=== PATIENT | female | born 1940 | race Caucasian/White ===

== ENCOUNTER 2016-05-03 23:06 | Inpatient (IN) | payer OTHER ==
[~2016-05-03] VITALS: Ht 160 cm; Wt 103.0 kg
[~2016-05-03 23:06] MED LIST: ACET-1175 PO; BISA10SU38 PR; CHOL1000 PO; CITA10TA4 PO; FURO40TA3 PO; HYDR-5688 PO; LAMO150T32 PO; LEVE1TAB57 PO; LOSA1TAB PO; MAGNSUS5 PO; OXYC-164 PO; POLY99.02 OPB; PRNJ PO; RANI150T2 PO; SENN-61 PO; TGR200 PO
[2016-05-03] MEDS ORDERED: ONDANSETRON INJ 2 MG/ML 2 ML VIAL IV STA (23:31)
[2016-05-03] MEDS ORDERED: MoRPHine SULFATE 4 MG/ML 1 ML CARP\\VIAL IV STA (23:31)
--- NOTE | 2016-05-03 23:36 | EMERGENCY ROOM VISIT NOTE ---
History Report prepared by Radha: Himanshu Bridges Under the Supervision of: Dr. Natan Allen M.D. First contact with patient: 23:14 Chief Complaint: LEG PAIN,LEG INJURY Stated Complaint: FALL/ RT LEG PAIN W/DEFORMITY History of Present Illness The patient is a 76 year old female who presents to the Emergency Room with complaints of constant pain in her right leg, secondary to a fall that occurred 1.5 hours prior to arrival. The patient rates her pain as a 6/10 in severity. According to the staff at [facility], the patient was being assisted to the restroom by an certified nursing assistant. The patient attempted to put weight on the right leg, and the certified nursing assistant heard a snap. There was a controlled fall following the snapping noise. There were no other traumatic injuries from the fall. The patient did no hit her head, and she denies pain in her hip. 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 Timing: constant Associated Symptoms: No headache Note: Patient denies pain in her right hip. Review of Systems See HPI for pertinent positives & negatives. A total of 10 systems reviewed and were otherwise negative. Past Medical & Surgical Medical Problems: (1) Abdom Aortic Aneurysm (2) Depressive Disorder Nec (3) Esophageal Reflux (4) Fibula fracture (5) Hypertension Nos (6) SIRS (systemic inflammatory response syndrome) (7) UTI (urinary tract infection) Family History Omitted secondary to age Social History Smoking Status: Unknown if Ever Smoked Alcohol Use: none Drug Use: none Housing Status: fdc Occupation Status: retired Current/Historical Medications Scheduled Artificial Tears (Artificial Tears), 1 DROPS OPB QID Bisacodyl (Dulcolax), 1 SUPP [place] PRN Carbamazepine (Carbamazepine), 300 MG PO BID Cholecalciferol (Vitamin D3), 1,000 UNITS PO DAILY Furosemide (Lasix), 60 MG PO DAILY Lamotrigine (Lamictal), 300 MG PO Q12 Levetiracetam (Keppra), 1,000 MG PO BID Losartan Potassium (Cozaar), 25 MG PO DAILY Magnesium Hydroxide (Milk Of Magnesia), 30 ML PO PRN Oxycodone Hcl (Oxycodone Hcl), 10 MG PO HS Prune Juice (Prune Juice ), OZ PO PRN UD Ranitidine HCl (Ranitidine HCl), 150 MG PO HS Senna (Senokot), 8.6 MG PO DAILY Scheduled PRN Acetaminophen (Tylenol), 650 MG PO Q6H PRN for Pain or Fever Hydrocodone/Acetaminophen 5MG/325MG ([place] 5MG/325MG), 1 TABLET PO Q4 PRN for MOD PAIN Hydrocodone/Acetaminophen 5MG/325MG ([place] 5MG/325MG), 2 TABLETS PO Q4H PRN for SEVERE PAIN Allergies Coded Allergies: No Known Allergies (Verified , 05/03/16) Physical Exam Vital Signs Date Time Temp Pulse Resp B/P Pulse Ox O2 Delivery O2 Flow Rate FiO2 05/04/16 02:42 54 05/04/16 02:31 55 18 185/71 99 Nasal Cannula 2.0 05/04/16 01:01 56 18 185/73 97 Room Air 05/03/16 23:50 96 Room Air 05/03/16 23:50 92 Room Air 05/03/16 23:20 36.4 57 22 186/77 98 Room Air Physical Exam GENERAL: Patient is a healthy-appearing well-nourished HEAD: Normocephalic atraumatic EYES: Ocular movements intact pupils equal and react to light OROPHARYNX mucous membranes are moist no exudates present no erythema or edema present NECK: Supple no nuchal rigidity CHEST: Good equal expansion LUNGS: Clear and equal to auscultation CARDIAC: Normal S1 and S2 ABDOMEN: Soft nontender no guarding BACK: No CVA tenderness EXTREMITIES: There is a chronic deformity to the right foot. Foot is neurovascularly intact. There is obvious swelling to the mid calf of the right leg. Normal range of motion. No pain upon palpation normal muscle strength in all groups no clubbing cyanosis. NEURO: Patient is following commands is answering questions appropriately. Alert and oriented x3 Cranial Nerves 2-12 grossly intact Medical Decision & Procedures ER Provider Diagnostic Interpretation: X-ray results as stated below per interpretation by me: 2 VIEW X-RAY TIBIA: X-rays shows a mid-shaft tibial fracture. No dislocation or subluxation. Laboratory Results 05/04/16 00:15 Red Blood Count 4.04, Mean Corpuscular Volume 96.3, Mean Corpuscular Hemoglobin 31.9, Mean Corpuscular Hemoglobin Concent 33.2, Mean Platelet Volume 9.2, Neutrophils (%) (Auto) 74.4, Lymphocytes (%) (Auto) 13.0, Monocytes (%) (Auto) 10.1, Eosinophils (%) (Auto) 2.0, Basophils (%) (Auto) 0.2, Neutrophils # (Auto ) 6.71, Lymphocytes # (Auto) 1.17, Monocytes # (Auto) 0.91, Eosinophils # (Auto ) 0.18, Basophils # (Auto) 0.02 05/04/16 00:15 Test 05/03/16 23:52 05/04/16 00:15 05/04/16 00:35 Bedside Glucose 104 mg/dl (70-90) White Blood Count 9.02 K/uL (4.8-10.8) Red Blood Count 4.04 M/uL (4.2-5.4) Hemoglobin 12.9 g/dL (12.0-16.0) Hematocrit 38.9 % (37-47) Mean Corpuscular Volume 96.3 fL (80-100) Mean Corpuscular Hemoglobin 31.9 pg (25-34) Mean Corpuscular Hemoglobin Concent 33.2 g/dl (32-36) Platelet Count 255 K/uL (130-400) Mean Platelet Volume 9.2 fL (7.4-10.4) Neutrophils (%) (Auto) 74.4 % Lymphocytes (%) (Auto) 13.0 % Monocytes (%) (Auto) 10.1 % Eosinophils (%) (Auto) 2.0 % Basophils (%) (Auto) 0.2 % Neutrophils # (Auto) 6.71 K/uL (1.4-6.5) Lymphocytes # (Auto) 1.17 K/uL (1.2-3.4) Monocytes # (Auto) 0.91 K/uL (0.11-0.59) Eosinophils # (Auto) 0.18 K/uL (0-0.5) Basophils # (Auto) 0.02 K/uL (0-0.2) RDW Standard Deviation 46.6 fL (36.4-46.3) RDW Coefficient of Variation 13.2 % (11.5-14.5) Immature Granulocyte % (Auto) 0.3 % Immature Granulocyte # (Auto) 0.03 K/uL (0.00-0.02) Prothrombin Time 10.7 SECONDS (9.0-12.0) Prothromb Time International Ratio 1.0 (0.9-1.1) Anion Gap 10.0 mmol/L (3-11) Estimated GFR () 46.8 Estimated GFR (Non- 40.4 BUN/Creatinine Ratio 21.0 (10-20) Calcium Level 8.9 mg/dl (8.5-10.1) Total Bilirubin 0.3 mg/dl (0.2-1) Direct Bilirubin < 0.1 mg/dl (0-0.2) Aspartate Amino Transf (AST/SGOT) 10 U/L (15-37) Alanine Aminotransferase (ALT/SGPT) 14 U/L (12-78) Alkaline Phosphatase 137 U/L (45-117) Total Protein 8.4 gm/dl (6.4-8.2) Albumin 3.8 gm/dl (3.4-5.0) Carbamazepine (Tegretol) Level 11.7 mcg/ml (4-12) Labs reviewed by ED physician. Medications Administered Medications (Trade) Dose Ordered Sig/Regla Route Start Time Stop Time Status Last Admin Dose Admin Morphine Sulfate (MoRPHine SULFATE INJ) 4 mg NOW STAT IV 05/03/16 23:31 05/03/16 23:32 DC 05/03/16 23:49 4 MG Ondansetron HCl (Zofran Inj) 4 mg NOW STAT IV 05/03/16 23:31 05/03/16 23:32 DC 05/03/16 23:47 4 MG Morphine Sulfate (MoRPHine SULFATE INJ) 4 mg NOW STAT IV 05/04/16 00:36 05/04/16 00:37 DC 05/04/16 01:00 4 MG Morphine Sulfate (MoRPHine SULFATE INJ) 4 mg Q15M PRN IV 05/04/16 00:45 05/04/16 04:48 DC 05/04/16 01:58 4 MG Hydromorphone HCl (Dilaudid Inj) 1 mg NOW STAT IV 05/04/16 02:15 05/04/16 02:16 DC 05/04/16 02:26 1 MG Metoclopramide HCl (Reglan Inj) 10 mg NOW STAT IV 05/04/16 02:15 05/04/16 02:16 DC 05/04/16 02:27 10 MG ED Course 2320: This patient was evaluated and HPI was obtained by the Medical Student prior to my evaluation. 2328: Past medical records reviewed. The patient was evaluated in room C11. A complete history and physical examination was performed. 2331: Ordered Zofran 4 mg IV, Morphine Sulfate 4 mg IV. 0034: I reevaluated the patient at this time. She is still feeling discomfort in her leg. 0036: Ordered Morphine Sulfate 4 mg IV. 0045: Ordered Morphine Sulfate 4 mg IV. 0105: I discussed the case with Dr. Jey DIAS, he will evaluate the patient for further treatment. Medical Decision The patient's history was concerning for traumatic injury Differential diagnosis: Etiologies such as fracture, dislocation, intra-abdominal, pneumothorax, intrathoracic , intracranial, neurologic, as well as other traumatic pathologies were entertained. This is a 76-year-old female who presents emergency Department with a spontaneous pain in her right mead. The patient has a large tibial fracture here. Based on the patient's comorbidities and her past medical history I felt that the patient should be admitted to the hospital. I did discuss her case with orthopedics. I will note that the patient are he has a right foot deformity and the patient noted that this foot appears normal for her. She is neurovascularly intact the foot. She was placed in ice. An IV was established , the patient is given multiple doses of morphine and then given 1 mg of Dilaudid. Repeat examination revealed improvement patient's symptoms. Patient was in agreement with the treatment plan. Consults Time Called: 51 Consulting Physician: Dr. Jey DIAS Hospitalist Returned Call: [phone] I discussed the case with Dr. Jey DIAS, he will evaluate the patient for further treatment. Impression Primary Impression: Tibial fracture Scribe Attestation The scribe's documentation has been prepared under my direction and personally reviewed by me in its entirety. I confirm that the note above accurately reflects all work, treatment, procedures, and medical decision making performed by me. Departure Information Dispostion Being Evaluated By Hospitalist Referrals [facility] (PCP) Patient Instructions My [facility] Problem Qualifiers Primary Impression: Tibial fracture Encounter type: initial encounter Tibia location: shaft Fracture type: closed Fracture morphology: comminuted Fracture alignment: nondisplaced Laterality: right Qualified Codes: S82.254A - Nondisplaced comminuted fracture of shaft of right tibia, initial encounter for closed fracture
[2016-05-04 00:32] LABS: BASO % 0.2 %; BASO ABS # 0.02 K/uL (0-0.2); COMPLETE YES; HEMATOCRIT 38.9 % (37-47); IG% 0.3 %; LYMPH ABS # 1.17 K/uL (1.2-3.4); MEAN CELL VOLUME 96.3 fL (80-100); MEAN CORPUSCULAR HEMOGLOBIN 31.9 pg (25-34); MEAN CORPUSCULAR HGB CONC 33.2 g/dl (32-36); MEAN PLATELET VOLUME 9.2 fL (7.4-10.4); MONO % 10.1 %; NEUT % 74.4 %; PLATELET COUNT 255 K/uL (130-400); RED BLOOD COUNT 4.04 M/uL (4.2-5.4); WHITE BLOOD COUNT 9.02 K/uL (4.8-10.8)
[2016-05-04] MEDS ORDERED: MoRPHine SULFATE 4 MG/ML 1 ML CARP\\VIAL IV STA (00:36)
[2016-05-04 00:40] LABS: PROTHROMBIN TIME (PATIENT) 10.7 SECONDS (9.0-12.0)
[2016-05-04] MEDS ORDERED: MoRPHine SULFATE 4 MG/ML 1 ML CARP\\VIAL IV PRN (00:45)
[2016-05-04] MEDS ORDERED: HYDR-5688 PO (00:46)
[2016-05-04 00:58] LABS: ALT/SGPT 14 U/L (12-78); AST/SGOT 10 U/L (15-37); BLOOD UREA NITROGEN 27 mg/dl (7-18); CALCIUM 8.9 mg/dl (8.5-10.1); CARBON DIOXIDE 28 mmol/L (21-32); CHLORIDE 94 mmol/L (98-107); GLUCOSE 120 mg/dl (70-99); POTASSIUM 4.2 mmol/L (3.5-5.1); SODIUM 132 mmol/L (136-145)
[2016-05-04 01:01] LABS: ALKALINE PHOSPHATASE 137 U/L (45-117)
[2016-05-04] MEDS ORDERED: HYDROmorphone INJ 1 MG/ML SYR IV STA (02:15)
[2016-05-04] MEDS ORDERED: METOCLOPRAMIDE HCL INJ 5 MG/ML 2 ML VIAL IV STA (02:15)
[2016-05-04] MEDS ORDERED: ACETAMINOPHEN 325 MG TAB PO PRN ×2 (03:45)
[2016-05-04] MEDS ORDERED: BISACODYL 10 MG SUPP PR PRN (03:45)
[2016-05-04] MEDS ORDERED: MAGNESIUM HYDROXIDE SUSP 30 ML UDC PO PRN (03:45)
[2016-05-04] MEDS ORDERED: ONDANSETRON INJ 2 MG/ML 2 ML VIAL IV PRN (03:45)
[2016-05-04] MEDS ORDERED: ALUMINUM/MAGNESIUM/SIMETH (MAALOX MAX) 30 ML UDC PO PRN (03:45)
[2016-05-04] MEDS ORDERED: POLYETHYLENE (MIRALAX) 17 GM PACK PO PRN (03:45)
[2016-05-04] MEDS ORDERED: MAGNESIUM HYDROXIDE SUSP 30 ML UDC PO SCH (03:45)
--- NOTE | 2016-05-04 04:53 | History and Physical ---
History & Physical Date & Time of Service: May 04, 2016 at 03:58 Chief Complaint: Fall/ Rt Leg Pain W/Deformity Primary Care Physician: Jumana Love History of Present Illness Source: patient, [place] [facility] 76 y/o morbidly obese female w/Hx, seizures, HTN, MILAGRO, severe osteoarthritis, questionable history of CHF- The pt is wheelchair bound and requires assistance transferring. She presents with LLE pain which occurred when she was helped up and put weight on her extremity. She denies having fallen. Imaging obtained in the ER shows a mid tibial dislocated, fragmented fracture. She denies SOB, CP, N/V, or dysuria. Past Medical/Surgical History Medical Problems: (1) Abdom Aortic Aneurysm Status: Chronic (2) Depressive Disorder Nec Status: Chronic (3) Esophageal Reflux Status: Chronic (4) Hypertension Nos Status: Chronic 5) Severe osteoarthritis - wheelchair bound 6) CHF in records - last available ECHO dates back to 2007 and does not reveal significant abnormalities - the pt denies a histroy of heart problems 7) Morbid obesity Family History Omitted secondary to age Social History Smoking Status: Unknown if Ever Smoked Drug Use: none Housing status: [facility] Occupational Status: retired Immunizations History of Influenza Vaccine: Unknown History of Tetanus Vaccine?: Unknown History of Pneumococcal: Unknown History of Hepatitis B Vaccine: Unknown Multi-Drug Resistant Organisms History of MDRO: Yes Type of MDRO: MRSA Allergies Coded Allergies: No Known Allergies (Verified , 05/03/16) Home Medications Scheduled Artificial Tears (Artificial Tears), 1 DROPS OPB QID Bisacodyl (Dulcolax), 1 SUPP [place] PRN Carbamazepine (Carbamazepine), 300 MG PO BID Cholecalciferol (Vitamin D3), 1,000 UNITS PO DAILY Furosemide (Lasix), 60 MG PO DAILY Lamotrigine (Lamictal), 300 MG PO Q12 Levetiracetam (Keppra), 1,000 MG PO BID Losartan Potassium (Cozaar), 25 MG PO DAILY Magnesium Hydroxide (Milk Of Magnesia), 30 ML PO PRN Oxycodone Hcl (Oxycodone Hcl), 10 MG PO HS Prune Juice (Prune Juice ), OZ PO PRN UD Ranitidine HCl (Ranitidine HCl), 150 MG PO HS Senna (Senokot), 8.6 MG PO DAILY Scheduled PRN Acetaminophen (Tylenol), 650 MG PO Q6H PRN for Pain or Fever Hydrocodone/Acetaminophen 5MG/325MG ([place] 5MG/325MG), 1 TABLET PO Q4 PRN for MOD PAIN Hydrocodone/Acetaminophen 5MG/325MG ([place] 5MG/325MG), 2 TABLETS PO Q4H PRN for SEVERE PAIN Review of Systems Constitutional: No chills, No fever, No sweats Eyes: No worsening of vision ENT: No hearing loss, No nasal symptoms, No unusual epistaxis Respiratory: No cough, No sputum, No wheezing Cardiovascular: No PND, No chest pain, No orthopnea Abdomen: No nausea, No pain, No vomiting Musculoskeletal: + joint pain, + muscle pain, + problem reported (Chronic severe arthritic deformities of all extremities - Pain along RLE - pulses present distaly.) Genitourinary - Female: No dysuria, No urinary frequency, No urinary urgency Neurologic: No memory loss, No paralysis, No weakness Psychiatric: No depression symptoms Endocrine: No fatigue Hematologic / Lymphatic: No abnormal bleeding/bruising Integumentary: No rash Allergic / Immunologic: No environmental allergies Physical Exam Vital Signs Date Time Temp Pulse Resp B/P Pulse Ox O2 Delivery O2 Flow Rate FiO2 05/04/16 02:42 54 05/04/16 02:31 55 18 185/71 99 Nasal Cannula 2.0 05/04/16 01:01 56 18 185/73 97 Room Air 05/03/16 23:50 96 Room Air 05/03/16 23:50 92 Room Air 05/03/16 23:20 36.4 57 22 186/77 98 Room Air General Appearance: WD/WN, no apparent distress Head: normocephalic, atraumatic Eyes: normal inspection ENT: pharynx normal Neck: supple, no JVD Respiratory/Chest: chest non-tender, lungs clear, normal breath sounds, no respiratory distress, no accessory muscle use Cardiovascular: regular rate, rhythm, no gallop, no JVD, + systolic murmur ( mild sysolic murmrur) Abdomen/GI: normal bowel sounds, non tender, soft Back: normal inspection, no CVA tenderness, no muscle spasm, normal range of motion Extremities/Musculoskelatal: normal inspection, no calf tenderness, normal capillary refill, no pedal edema, normal range of motion 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, no motor/sensory deficits, alert, normal mood/affect, normal reflexes, oriented x 3 Skin: normal color, warm/dry, no rash Diagnostics Laboratory Results Results Past 24 Hours Test 05/03/16 23:52 05/04/16 00:15 05/04/16 00:35 Range/Units Bedside Glucose 104 70-90 mg/dl White Blood Count 9.02 4.8-10.8 K/uL Red Blood Count 4.04 4.2-5.4 M/uL Hemoglobin 12.9 12.0-16.0 g/dL Hematocrit 38.9 37-47 % Mean Corpuscular Volume 96.3 80-100 fL Mean Corpuscular Hemoglobin 31.9 25-34 pg Mean Corpuscular Hemoglobin Concent 33.2 32-36 g/dl Platelet Count 255 130-400 K/uL Mean Platelet Volume 9.2 7.4-10.4 fL Neutrophils (%) (Auto) 74.4 % Lymphocytes (%) (Auto) 13.0 % Monocytes (%) (Auto) 10.1 % Eosinophils (%) (Auto) 2.0 % Basophils (%) (Auto) 0.2 % Neutrophils # (Auto) 6.71 1.4-6.5 K/uL Lymphocytes # (Auto) 1.17 1.2-3.4 K/uL Monocytes # (Auto) 0.91 0.11-0.59 K/uL Eosinophils # (Auto) 0.18 0-0.5 K/uL Basophils # (Auto) 0.02 0-0.2 K/uL RDW Standard Deviation 46.6 36.4-46.3 fL RDW Coefficient of Variation 13.2 11.5-14.5 % Immature Granulocyte % (Auto) 0.3 % Immature Granulocyte # (Auto) 0.03 0.00-0.02 K/uL Prothrombin Time 10.7 9.0-12.0 SECONDS Prothromb Time International Ratio 1.0 0.9-1.1 Sodium Level 132 136-145 mmol/L Potassium Level 4.2 3.5-5.1 mmol/L Chloride Level 94 98-107 mmol/L Carbon Dioxide Level 28 21-32 mmol/L Anion Gap 10.0 3-11 mmol/L Blood Urea Nitrogen 27 7-18 mg/dl Creatinine 1.30 0.60-1.20 mg/dl Estimated GFR () 46.8 Estimated GFR (Non- 40.4 BUN/Creatinine Ratio 21.0 10-20 Random Glucose 120 70-99 mg/dl Calcium Level 8.9 8.5-10.1 mg/dl Total Bilirubin 0.3 0.2-1 mg/dl Direct Bilirubin < 0.1 0-0.2 mg/dl Aspartate Amino Transf (AST/SGOT) 10 15-37 U/L Alanine Aminotransferase (ALT/SGPT) 14 12-78 U/L Alkaline Phosphatase 137 45-117 U/L Total Protein 8.4 6.4-8.2 gm/dl Albumin 3.8 3.4-5.0 gm/dl Carbamazepine (Tegretol) Level 11.7 4-12 mcg/ml Diagnostic Radiology Mid Tibial displaced fracture with multiple fragments EKG Sinus bee - borderline L axis - IVCD - no clear evidence of previous [facility] Impression Assessment and Plan 76 y/o morbidly obese female w/Hx, seizures, HTN, MILAGRO, severe osteoarthritis, questionable history of CHF- The pt is wheelchair bound and requires assistance transferring. She presents with LLE pain which occurred when she was helped up and put weight on her extremity. She denies having fallen. Imaging obtained in the ER shows a mid tibial dislocated, fragmented fracture. She denies SOB, CP, N/V, or dysuria. 1) Tibial fracture - bed rest - ortho eval She has a questionable history of CHF which she denies and we only have an echo dating to 2007. We cannot assess her exercise tolerance as she is wheelchair bound due to severe osteoarthritis. It is also very difficult to assess her volume status due to her habitus. We would defer then to contacting her primary MD for additional information prior to risk stratification if she is to proceed to surgery. Conservative measures are also an option as she is wheelchair bound regardless however she is having severe persistent pain. Decision will ultimately be left to the discretion of the orthopedic service. Pain has responded to Dilaudid. Pt is NPO pending ortho eval. Furosemide and her ARB have been held. HR will not tolerate periop B addis. Considering the way her frracture occured she need to be treated for osteoporosis eventually. 2) Seizures - cont anticonvulsants 3) HTN - monitor - ARB, Lasix held pending surgery eval 4) Ranitidine continued and ot placed on bowel reg Full code confirmed in chart - heparin held pending surgery eval - start if no immediate surgery as she is high risk for DVT Total time for this admit including chart review - med rec - review of labs, imaging EKG - discussion with pt and ER attending Level of Care Med/Surg Resuscitation Status FULL RESUSCITATION VTE Prophylaxis VTE Risk Assessment Done? Y/N: Yes Risk Level: Moderate
[2016-05-04 05:06] VITALS: BP 151/64; PULSE 63; TEMP 36.7; O2SAT 99; Ht 160 cm; Wt 103.0 kg
[2016-05-04] MEDS: HYDROmorphone INJ 1 MG/ML SYR IV PRN ×4 (06:42→17:46)
[2016-05-04 07:20] VITALS: BP 150/79; PULSE 53; TEMP 36.7; O2SAT 99
--- NOTE | 2016-05-04 07:20 | DIAGNOSTIC IMAGING REPORT ---
RIGHT TIBIA/FIBULA 2 VIEWS ROUTINE CLINICAL HISTORY: Right leg pain. COMPARISON: None. DISCUSSION: There are advanced degenerative changes within the knee and ankle.. There is an acute comminuted fracture of the proximal to mid tibia. There is an acute fracture of the proximal fibula. The tibial fracture demonstrates 10 mm of posterior displacement of the distal fragment. There is associated soft tissue swelling. IMPRESSION: 1. Acute comminuted fracture of the proximal and mid tibia. Acute fracture the proximal fibula. 2. Osteopenia 3. Advanced arthritic changes within the knee, foot and ankle Electronically signed by: Swapnil Salazar M.D. 05/04/2016 7:18 AM Dictated Date/Time: 05/04/2016 7:16 AM
--- NOTE | 2016-05-04 07:21 | DIAGNOSTIC IMAGING REPORT ---
RIGHT FOOT 2 VIEWS CLINICAL HISTORY: Right foot pain COMPARISON: None DISCUSSION: The bones are osteopenic. There are advanced degenerative changes within the ankle and hindfoot. This is likely on either a posttraumatic or neuropathic basis. No acute fractures are visualized. IMPRESSION: Advanced arthritic changes within the hindfoot and ankle. No acute fractures identified. Electronically signed by: Swapnil Salazar M.D. 05/04/2016 7:20 AM Dictated Date/Time: 05/04/2016 7:19 AM
[2016-05-04] MEDS ORDERED: LOSARTAN POTASSIUM 25 MG TAB PO SCH (09:00)
[2016-05-04] MEDS: LEVETIRACETAM 500 MG TAB PO SCH ×2 (09:23→21:44)
[2016-05-04] MEDS: CARBAMAZEPINE 200 MG TAB PO SCH ×2 (09:23→21:46)
[2016-05-04] MEDS: ARTIFICIAL TEARS OP SOLN OPB SCH ×8 (09:23→21:45)
[2016-05-04] MEDS: SENNA 8.6 MG TAB PO SCH (09:23)
--- NOTE | 2016-05-04 11:25 | ORTHOPEDIC CONSULTATION ---
DATE OF CONSULTATION: 05/04/2016 CHIEF COMPLAINT: Right leg pain. HISTORY OF PRESENT ILLNESS: The patient is a 76-year-old morbidly obese female with multiple underlying medical problems including severe wheelchair bound osteoarthritis, who presents to the ER with a right leg injury. She was apparently in the bathroom, mobilizing and somehow injured her right leg. The exact details are unclear. The patient is a pretty poor historian. She was brought to Emergency Room where x-rays reveal a tibia/fibula fracture. She was admitted and we are consulted for evaluation. Once again, the patient is wheelchair bound. Does not walk. She describes isolated right mead pain. No fevers. PAST MEDICAL HISTORY: 1. Hypertension. 2. Morbid obesity. 3. History of seizure disorder. 4. Congestive heart failure. 5. Abdominal aortic aneurysm. 6. Depression. 7. Gastroesophageal reflux disease. Remainder of the past medical history is per the admission H\T\P. OBJECTIVE: VITAL SIGNS: Temperature is 36.7. Vital signs stable. PHYSICAL EXAMINATION: GENERAL: Reveals she is relatively pleasant elderly female. She is lying in bed and looks reasonably comfortable. GENERAL MUSCULOSKELETAL EXAM: Reveals a morbidly obese patient. Examination of the upper extremities reveals weakness in her right arm. She really cannot extend her fingers or wrist and holds them in a flexed position that she says is related to arthritis. There are no signs of swelling or trauma in this area. Examination of the right lower extremity reveals the leg to be well aligned. She does have chronic stasis changes in her mid mead area. The skin is all intact. Her leg is well aligned. She has got a chronic deformity to her ankle with very marked prominent bony prominence medially. She has got a scar over the anterior aspect of her ankle. She can slightly flex and extend her toes. Very large thigh. No knee effusion. X-RAYS: X-rays of the right tib/fib as well as the right foot were reviewed. She has a marked chronic deformity to her foot and ankle without acute fracture. She got a comminuted midshaft tibia fracture with a proximal fibula fracture. The alignment looks good. It is slightly displaced in the lateral plane but alignment is good. There is some comminution with a medial butterfly fragment. ASSESSMENT: A 76-year-old female with multiple medical problems and morbid obesity with severe arthritis of her knee and ankle with a comminuted midshaft tibia fracture. Very osteopenic, not a very good surgical candidate. PLAN: We are going to place her in a long leg cast. She will need to be in this cast for at least a month, followed by short leg cast probably for at least 2 months. We will have to see how this heals. I think operative treatment would be fraught with difficulties with this patient, considering her severe knee arthritis and osteopenia. We will have to be careful and check her skin regularly due to her bony prominences distally. We will place this cast later today. She should be able to probably transfer back to [facility] likely tomorrow. Any questions can be directed to me at [phone].
--- NOTE | 2016-05-04 11:44 | DIAGNOSTIC IMAGING REPORT ---
RIGHT TIBIA/FIBULA 2 VIEWS ROUTINE CLINICAL HISTORY: Right tibial fracture COMPARISON: 05/03/2016 DISCUSSION: There is been interval application of a fiberglass cast. There are advanced arthritic changes present within the and ankle. There is a nondisplaced proximal fibular fracture. There is a comminuted fracture the mid tibial shaft. The distal fragment is laterally displaced x 13 mm. There is 7 degrees of vertex medial angulation at the fracture site. The distal fragment is posteriorly displaced x 6 mm. IMPRESSION: 1. Interval casting of a comminuted mid tibial fracture and proximal fibular fracture with alignment as described above. 2. Advanced arthritic changes involving the knee and ankle. The patient may be status post a previously attempted ankle arthrodesis. Electronically signed by: Swapnil Salazar M.D. 05/04/2016 11:42 AM Dictated Date/Time: 05/04/2016 11:36 AM
--- NOTE | 2016-05-04 13:16 | PROGRESS NOTE ---
DATE: 05/04/2016 HISTORY OF PRESENT ILLNESS: The patient was placed in well-padded long-leg cast. A well-padded short leg cast was applied with extra padding around the medial malleolus area. We tried to align this up clinically. This cast was then extended up above the knee holding the knee in about 30 degrees of flexion. The patient tolerated the procedure well. Post-reduction, films reveal slight valgus alignment but otherwise acceptable. We will likely wedge this cast probably about 2 weeks from now when it is starting to get a little bit sticky. The patient tolerated the procedure well with no complications. GEE
[2016-05-04 15:10] VITALS: BP 114/65; PULSE 58; TEMP 36.8; O2SAT 99
--- NOTE | 2016-05-04 18:42 | Progress Note ---
Subjective Date of Service: May 04, 2016. Subjective Pt evaluation today including: conversation w/ patient, physical exam, chart review, lab review Problem List Medical Problems: (1) Altered mental status Status: Acute (2) Fever Status: Acute (3) Seizure Status: Acute (4) Sepsis Status: Acute (5) Tibial fracture Status: Acute (6) UTI (urinary tract infection) Status: Acute Review of Systems Constitutional: No chills, No fatigue, No fever, No problem reported, No see HPI, No sweats, No weakness, No weight loss Eyes: No diplopia, No discharge, No eye pain, No problem reported, No redness, No see HPI, No worsening of vision ENT: No dental problems, No hearing loss, No nasal symptoms, No problem reported, No see HPI, No sore throat, No tinnitus, No trouble swallowing, No unusual epistaxis Respiratory: No cough, No dyspnea at rest, No dyspnea on exertion, No hemoptysis, No problem reported, No see HPI, No shortness of breath, No sputum, No wheezing Cardiac: No PND, No chest pain, No claudication, No edema, No orthopnea, No palpitations, No problem reported, No see HPI Abdomen: No GI bleeding, No constipation, No diarrhea, No nausea, No pain, No problem reported, No see HPI, No vomiting Musculoskeletal: + joint pain, + muscle pain Female : No abnormal vaginal bleeding, No dysuria, No hematuria, No incontinence, No problem reported, No see HPI, No urinary frequency, No vaginal discharge Neurologic: No balance problems, No memory loss, No numbness/tingling, No paralysis, No problem reported, No see HPI, No vertigo, No weakness Psychiatric: No anhedonism, No anxiety, No depression symptoms, No insomnia, No problem reported, No see HPI, No substance abuse Heme: No abnormal bleeding/bruising, No clotting problems, No night sweats, No problem reported, No see HPI, No swollen lymph nodes Endo: No excessive thirst, No excessive urination, No fatigue, No problem reported, No see HPI Skin: No bleeding, No color change, No itch, No new/changing skin lesions, No problem reported, No rash, No see HPI Medications Current Inpatient Medications Medications (Trade) Dose Ordered Sig/Regla Route Start Time Stop Time Status Last Admin Dose Admin Bisacodyl (Dulcolax Supp) 10 mg DAILY PRN [place] 05/04/16 03:45 06/03/16 03:44 Carbamazepine (Tegretol Tab) 300 mg BID PO 05/04/16 09:00 06/03/16 08:59 05/04/16 09:23 300 MG Lamotrigine (Lamictal Tab) 300 mg Q12 PO 05/04/16 09:00 06/03/16 08:59 05/04/16 09:23 300 MG Levetiracetam (Keppra Tab) 1,000 mg BID PO 05/04/16 09:00 06/03/16 08:59 05/04/16 09:23 1,000 MG Losartan Potassium (coZAAR TAB) 25 mg DAILY PO 05/04/16 09:00 06/03/16 08:59 05/04/16 09:23 25 MG Ranitidine HCl (zANTac TAB) 150 mg HS PO 05/04/16 21:00 06/03/16 20:59 Senna (Senokot Tab) 8.6 mg DAILY PO 05/04/16 09:00 06/03/16 08:59 05/04/16 09:23 8.6 MG Artificial Tears (Artificial Tears) 2 drops QID OPB 05/04/16 09:00 06/03/16 08:59 05/04/16 17:21 2 DROPS Acetaminophen (Tylenol Tab) 650 mg Q4H PRN PO 05/04/16 03:45 06/03/16 03:44 Al Hydrox/Mg Hydrox/Simethicone (Maalox Max Susp) 15 ml Q4H PRN PO 05/04/16 03:45 06/03/16 03:44 Magnesium Hydroxide (Milk Of Magnesia Susp) 30 ml Q6H PRN PO 05/04/16 03:45 06/03/16 03:44 Polyethylene (Miralax Powder Packet) 17 gm DAILY PRN PO 05/04/16 03:45 06/03/16 03:44 Ondansetron HCl (Zofran Inj) 4 mg Q6H PRN IV 05/04/16 03:45 06/03/16 03:44 Hydromorphone HCl (Dilaudid Inj) 1 mg Q3H PRN IV 05/04/16 03:45 05/18/16 03:44 05/04/16 17:46 1 MG Objective Vital Signs Date Time Temp Pulse Resp B/P Pulse Ox O2 Delivery O2 Flow Rate FiO2 05/04/16 15:10 36.8 58 20 114/65 99 Nasal Cannula 2.0 05/04/16 09:30 Nasal Cannula 2.0 05/04/16 07:20 36.7 53 20 150/79 99 Nasal Cannula 2.0 05/04/16 05:06 36.7 63 20 151/64 99 Nasal Cannula 2.0 05/04/16 04:35 36.8 60 20 166/65 99 Nasal Cannula 2.0 05/04/16 02:42 54 05/04/16 02:31 55 18 185/71 99 Nasal Cannula 2.0 05/04/16 01:01 56 18 185/73 97 Room Air 05/03/16 23:50 96 Room Air 05/03/16 23:50 92 Room Air 05/03/16 23:20 36.4 57 22 186/77 98 Room Air Physical Exam General Appearance: no apparent distress Eyes: normal inspection, PERRL, EOMI ENT: normal ENT inspection, hearing grossly normal Neck: supple Respiratory/Chest: chest non-tender, lungs clear, normal breath sounds, no respiratory distress, no accessory muscle use Cardiovascular: regular rate, rhythm, no edema, no gallop, no JVD, no murmur Abdomen: normal bowel sounds, non tender, soft, no organomegaly Extremities: normal range of motion Neurologic/Psychiatric: hospital chief executive officer II-XII nml as tested, no motor/sensory deficits, alert, normal mood/affect, oriented x 3 Skin: normal color, warm/dry, no rash Laboratory Results Last 24 Hours Test 05/03/16 23:52 05/04/16 00:15 05/04/16 00:35 Bedside Glucose 104 mg/dl White Blood Count 9.02 K/uL Red Blood Count 4.04 M/uL Hemoglobin 12.9 g/dL Hematocrit 38.9 % Mean Corpuscular Volume 96.3 fL Mean Corpuscular Hemoglobin 31.9 pg Mean Corpuscular Hemoglobin Concent 33.2 g/dl Platelet Count 255 K/uL Mean Platelet Volume 9.2 fL Neutrophils (%) (Auto) 74.4 % Lymphocytes (%) (Auto) 13.0 % Monocytes (%) (Auto) 10.1 % Eosinophils (%) (Auto) 2.0 % Basophils (%) (Auto) 0.2 % Neutrophils # (Auto) 6.71 K/uL Lymphocytes # (Auto) 1.17 K/uL Monocytes # (Auto) 0.91 K/uL Eosinophils # (Auto) 0.18 K/uL Basophils # (Auto) 0.02 K/uL RDW Standard Deviation 46.6 fL RDW Coefficient of Variation 13.2 % Immature Granulocyte % (Auto) 0.3 % Immature Granulocyte # (Auto) 0.03 K/uL Prothrombin Time 10.7 SECONDS Prothromb Time International Ratio 1.0 Sodium Level 132 mmol/L Potassium Level 4.2 mmol/L Chloride Level 94 mmol/L Carbon Dioxide Level 28 mmol/L Anion Gap 10.0 mmol/L Blood Urea Nitrogen 27 mg/dl Creatinine 1.30 mg/dl Estimated GFR () 46.8 Estimated GFR (Non- 40.4 BUN/Creatinine Ratio 21.0 Random Glucose 120 mg/dl Calcium Level 8.9 mg/dl Total Bilirubin 0.3 mg/dl Direct Bilirubin < 0.1 mg/dl Aspartate Amino Transf (AST/SGOT) 10 U/L Alanine Aminotransferase (ALT/SGPT) 14 U/L Alkaline Phosphatase 137 U/L Total Protein 8.4 gm/dl Albumin 3.8 gm/dl Carbamazepine (Tegretol) Level 11.7 mcg/ml Assessment and Plan 76 y/o morbidly obese female w/Hx, seizures, HTN, MILAGRO, severe osteoarthritis, questionable history of CHF- The pt is wheelchair bound and requires assistance transferring. she had a mechanical fall in the bathroom resulted in mid tibial dislocated, fragmented fracture. Tibia fracture , ortho consult appreciated S/P leg cast Post-reduction, films reveal slight valgus alignment but otherwise acceptable. likely will need wedge 2 weeks from now continue Dilaudid for pain management but add also oral percocet, consider long acting oxycodone. JO ANN/Dehydration Hold Furosemide and her ARB Gentle IVF hydration Seizures - cont anticonvulsants HTN - monitor - ARB, Lasix held Ranitidine continued Lovenox for DVT prophylaxis
[2016-05-04] MEDS: SODIUM CHLORIDE 0.9% 1000ML 1,000 ML IV SCH (19:15)
[2016-05-04] MEDS: RANITIDINE HCL 150 MG TAB PO SCH (21:47)
[2016-05-04 23:39] VITALS: BP 87/69; PULSE 68; TEMP 36.8; O2SAT 98
[2016-05-05] VITALS (8 sets, daily range): BP systolic 109–142; BP diastolic 57–70; PULSE 52–67; TEMP 36.8; O2SAT 92–98
[2016-05-05] MEDS: HYDROmorphone INJ 1 MG/ML SYR IV PRN ×2 (00:25→22:31)
[2016-05-05 06:58] LABS: BASO % 0.8 %; BASO ABS # 0.04 K/uL (0-0.2); COMPLETE YES; EOS % 3.2 %; HEMATOCRIT 31.2 % (37-47); IG% 0.2 %; LYMPH % 32.5 %; LYMPH ABS # 1.72 K/uL (1.2-3.4); MEAN CELL VOLUME 97.5 fL (80-100); MEAN CORPUSCULAR HEMOGLOBIN 32.5 pg (25-34); MEAN CORPUSCULAR HGB CONC 33.3 g/dl (32-36); MEAN PLATELET VOLUME 9.1 fL (7.4-10.4); MONO % 14.2 %; NEUT % 49.1 %; PLATELET COUNT 218 K/uL (130-400); WHITE BLOOD COUNT 5.29 K/uL (4.8-10.8)
[2016-05-05 07:30] LABS: ALB/GLOB RATIO 0.7 (0.9-2); BUN/CREATININE RATIO 24.2 (10-20); CALCIUM 8.2 mg/dl (8.5-10.1); POTASSIUM 4.3 mmol/L (3.5-5.1)
[2016-05-05 07:31] LABS: MAGNESIUM 2.4 mg/dl (1.8-2.4); PHOSPHORUS 2.7 mg/dl (2.5-4.9)
[2016-05-05] MEDS ORDERED: ENOXAPARIN 30 MG/0.3 ML SYR SQ SCH (09:00)
--- NOTE | 2016-05-05 09:29 | DIAGNOSTIC IMAGING REPORT ---
CHEST ONE VIEW PORTABLE CLINICAL HISTORY: Preoperative evaluation. COMPARISON STUDY: Chest radiograph September 08, 2015. FINDINGS: Severe degenerative changes of the right shoulder are noted. There is no pneumothorax or pleural effusion. This study is compromised by suboptimal penetration. There is no evidence of pulmonary edema. Moderate cardiomegaly is unchanged. Upper mediastinal widening is unchanged. IMPRESSION: 1. No acute cardiopulmonary findings. 2. Stable mild to moderate cardiomegaly. Electronically signed by: Romeo Atkinson M.D. 05/05/2016 9:27 AM Dictated Date/Time: 05/05/2016 9:26 AM
[2016-05-05] MEDS: ARTIFICIAL TEARS OP SOLN OPB SCH ×8 (09:46→20:42)
[2016-05-05] MEDS: SENNA 8.6 MG TAB PO SCH (09:47)
[2016-05-05] MEDS: LEVETIRACETAM 500 MG TAB PO SCH ×2 (09:48→21:03)
[2016-05-05] MEDS: CARBAMAZEPINE 200 MG TAB PO SCH ×2 (09:49→21:04)
--- NOTE | 2016-05-05 10:06 | Clinical Documentation Query ---
CLINICAL DOCUMENTATION QUERY Dr. CHATMAN, In your clinical opinion is this patient being managed for: (x ) Osteoporotic fracture of R proximal to mid tibia and R proximal fibula sustained when pt was bearing wt on R leg with transfer ( ) Other explanation of clinical findings (Please Explain) ( ) Unable to determine (Please Define) ( ) Need to Discuss ( ) Not Agree The medical record reflects the following clinical findings, treatment, and risk factors. Clinical Indicators: ER note indicates pt was transferring and put weight on her R leg, then caregiver heard a snap. Controlled fall occurred following the snapping noise. Tib/FIb xray showed osteopenia. Treatment:followup treatment for osteoporosis (per H/P), ortho consult, R long leg cast, outpatient Vitamin D treatment Risk Factors: perimenopausal female, morbid obesity, severe osteoarthritis Please clarify and document your clinical opinion in the progress notes and discharge summary. Terms such as "probable", "suspected", "likely", "questionable", "possible", or "still to be ruled out" are acceptable. IF IN AGREEMENT, YOU MUST DOCUMENT ABOVE DIAGNOSTIC STATEMENT IN DAILY PROGRESS NOTES AND DISCHARGE SUMMARY. This document is not part of the patient's record. Thank You, Ana Hooper, RN [phone]
--- NOTE | 2016-05-05 10:12 | Hospitalist Progress Note ---
Hospitalist Progress Note Date of Service May 05, 2016. (Genoveva Sears ., DEL-C) Subjective Pt evaluation today including: conversation w/ patient, physical exam, chart review, lab review, review of studies Pain: 5/10 aching RLE pain PO Intake: NPO Voiding: fuentes catheter in place Patient reports feeling well. She complains of a 5/10 aching pain in her right lower leg that radiates down to her right foot. Her RLE is currently in a long cast. She denies any other complaints. She has been kept NPO for surgery today and a Fuentes catheter is in place. The patient denies any history of heart attack or stroke, although her outpatient records suggest a remote history of CVA with residual right hemiplegia. The patient denies fevers, chills, sweats, chest pain, palpitations, claudication, cough, wheezing, shortness of breath, nausea, vomiting, abdominal pain, dysuria, hematuria, urinary retention, paralysis, weakness, numbness and tingling. Additional Comments: See HPI for pertinent positives and negatives. All other systems reviewed and negative. (Genoveva Sears ., PA-C) Objective Vital Signs Date Time Temp Pulse Resp B/P Pulse Ox O2 Delivery O2 Flow Rate FiO2 05/05/16 08:23 36.8 62 18 129/67 92 Room Air 05/05/16 00:24 109/67 05/05/16 00:15 Room Air 05/04/16 23:39 36.8 68 18 87/69 98 Room Air 05/04/16 17:30 Nasal Cannula 1.0 05/04/16 15:10 36.8 58 20 114/65 99 Nasal Cannula 2.0 (Genoveva Sears ., PA-C) Physical Exam General Appearance: WD/WN, no apparent distress, + obese (morbidly obese) Eyes: normal inspection, PERRL, EOMI ENT: normal ENT inspection, hearing grossly normal, pharynx normal, + pertinent finding (dry oral mucosa, pt is NPO ) Neck: supple, no JVD, trachea midline Respiratory/Chest: lungs clear, normal breath sounds, no respiratory distress Cardiovascular: regular rate, rhythm, no gallop, + systolic murmur Abdomen: normal bowel sounds, non tender, soft Extremities: no pedal edema, normal capillary refill, + pertinent finding (RLE in long cast, sensation intact) Neurologic/Psychiatric: alert, normal mood/affect, oriented x 3, + pertinent finding (distal pulses intact, sensation intact) Skin: normal color, warm/dry, no rash (Genoveva Sears .SARA) Laboratory Results Last 24 Hours Test 05/05/16 06:30 White Blood Count 5.29 K/uL Red Blood Count 3.20 M/uL Hemoglobin 10.4 g/dL Hematocrit 31.2 % Mean Corpuscular Volume 97.5 fL Mean Corpuscular Hemoglobin 32.5 pg Mean Corpuscular Hemoglobin Concent 33.3 g/dl Platelet Count 218 K/uL Mean Platelet Volume 9.1 fL Neutrophils (%) (Auto) 49.1 % Lymphocytes (%) (Auto) 32.5 % Monocytes (%) (Auto) 14.2 % Eosinophils (%) (Auto) 3.2 % Basophils (%) (Auto) 0.8 % Neutrophils # (Auto) 2.60 K/uL Lymphocytes # (Auto) 1.72 K/uL Monocytes # (Auto) 0.75 K/uL Eosinophils # (Auto) 0.17 K/uL Basophils # (Auto) 0.04 K/uL RDW Standard Deviation 48.2 fL RDW Coefficient of Variation 13.4 % Immature Granulocyte % (Auto) 0.2 % Immature Granulocyte # (Auto) 0.01 K/uL Sodium Level 134 mmol/L Potassium Level 4.3 mmol/L Chloride Level 98 mmol/L Carbon Dioxide Level 29 mmol/L Anion Gap 7.0 mmol/L Blood Urea Nitrogen 24 mg/dl Creatinine 1.00 mg/dl Est Creatinine Clear Calc Drug Dose 56.4 ml/min Estimated GFR () 64.3 Estimated GFR (Non- 55.5 BUN/Creatinine Ratio 24.2 Random Glucose 96 mg/dl Calcium Level 8.2 mg/dl Phosphorus Level 2.7 mg/dl Magnesium Level 2.4 mg/dl Total Bilirubin 0.4 mg/dl Aspartate Amino Transf (AST/SGOT) 11 U/L Alanine Aminotransferase (ALT/SGPT) 12 U/L Alkaline Phosphatase 100 U/L Total Protein 6.8 gm/dl Albumin 2.9 gm/dl Globulin 3.9 gm/dl Albumin/Globulin Ratio 0.7 (Genoveva Sears PA-C) Diagnostic Results Reviewed the following studies and agree with interpretation as follows: Patient Name: CHANDRIKA LUO Unit Number: [id number] Dictated: 05/05/16925 Transcribed: 05/05/16925 JA Printed Date/Time: [~ rep prt dt]/[~ rep prt tm] [~ rep ct labl] - [~ rep ct ivnm] [facility] [place] [address] Dictated: 05/05/16925 Transcribed: 05/05/16925 JA Printed Date/Time: [~ rep prt dt]/[~ rep prt tm] [~ rep ct labl] - [~ rep ct ivnm] Patient: CHANDRIKA LUO Address1: [address] [place] [address] Rec: [id number] Address2: [place] Acct ID: [id number] [facility] Zip: [place] [address] Date: 1940 Sex: F Room/Bed: [facility] Ref Phy: [place]: C.MSN Att Phy: Cathleen Norris DO Report #: [id number] Isabella Phy: [place] Test: [id number] Admit Phy: Luisito Khanna MD [employer] Operator: CURLY Interpreting Phy: Romeo Atkinson MD Diagnosis: TIBIAL FRACTURE Ordering Phy: Genoveva Sears PA-C Service Date: 05/05/16 Admit Date: 05/03/1700/22/17 MNE: [id number] CONF: DICTATED BY: Romeo Atkinson MD]] CC: [facility] Genoveva Sears ., Cathleen Eugene DO Endcc: [~ rep ct add3]] CHEST ONE VIEW PORTABLE CLINICAL HISTORY: Preoperative evaluation. COMPARISON STUDY: Chest radiograph September 08, 2015. FINDINGS: Severe degenerative changes of the right shoulder are noted. There is no pneumothorax or pleural effusion. This study is compromised by suboptimal penetration. There is no evidence of pulmonary edema. Moderate cardiomegaly is unchanged. Upper mediastinal widening is unchanged. IMPRESSION: 1. No acute cardiopulmonary findings. 2. Stable mild to moderate cardiomegaly. Electronically signed by: Romeo Atkinson M.D. 05/05/2016 9:27 AM Dictated Date/Time: 05/05/2016 9:26 AM The status of this report is Signed. Draft = Not yet reviewed or approved by Radiologist. Signed = Reviewed and approved by Radiologist. <AttendingPhy>Cathleen Norris DO</AttendingPhy> <FamilyPhy>[place]</ FamilyPhy> <PrimaryPhy>[place]</PrimaryPhy> <UnitNumber>[id number]</ UnitNumber> <VisitNumber>[id number]</VisitNumber> <PatientName>CHANDRIKA LUO</PatientName> <DateOfBirth>1940</DateOfBirth> <Location>C.MSN</ Location> <ServiceDate>05/03/16</ServiceDate> <MNE>ESINDI</MNE> <OrderingPhy> Genoveva Sears PA-C</OrderingPhy> <OrderingPhyMNE>f rep ord dr ford</ OrderingPhyMNE> <DictatingPhyMNE>f rep dict dr ford</DictatingPhyMNE> <CCListMNE> f rep ct mne</CCListMNE> <AdmittingPhyMNE>f pt admit dr ford</AdmittingPhyMNE> < AttendingPhyMNE>f pt attend dr ford</AttendingPhyMNE> <ConsultingPhyMNE>f pt consult dr ford</ConsultingPhyMNE> <FamilyPhyMNE>f pt fam dr ford</FamilyPhyMNE> <OtherPhyMNE>f pt other dr ford</OtherPhyMNE> < PrimaryPhyMNE>f pt prim care dr ford</PrimaryPhyMNE> <ReferringPhyMNE>f pt referring dr ford</ReferringPhyMNE> Reviewed EKG and agree with interpretation as follows: 57 bpm, sinus bradycardia w/PACs in bigeminy, inverted T waves in leads V1 and V2 (Genoveva Sears .SARA) Assessment and Plan 76 y/o female with a history of morbid obesity, seizures, HTN, MILAGRO, severe osteoarthritis, and questionable history of CHF who presented following an unclear trauma in the bathroom resulting in a mid tibial dislocated, fragmented fracture. Pt denies falling and states that she put all of her weight on her RLE just prior to the fracture. The pt is wheelchair bound and requires assistance transferring. Tibial fracture -Admit to med/surg -Pt NPO after midnight except meds -Ortho consulted, appreciate recs: S/p long leg cast and reduction 05/04, repeat x-ray show slight valgus alignment but is acceptable. 05/05 ortho now recommends surgery, pt to go to OR today pending pre-op evaluation -EKG 05/04: 57 bpm, sinus bradycardia with PACs in bigeminy pattern, inverted T waves in leads V1 and V2. Pt has had anterior T waves in the past. She is asymptomatic. -CXR shows no acute disease, stable cardiomegaly -Pt cleared for surgery today by medicine -Continue Dilaudid 1 mg IV q3h prn pain JO ANN/Dehydration--improved. Baseline creatinine WNL, around 0.8 -Creatinine elevated at 1.3 upon arrival -Improved with IVF, creatinine 1.0 on 05/05 -Hold Furosemide and losartan -Gentle IVF hydration Seizures--stable -Continue Tegretol 300 mg PO BID, Lamictal 300 mg PO q12h, and Keppra 1000 mg PO BID HTN--stable, last recorded BP 129/67 -Continue to hold losartan until renal function is checked post operatively and remains stable DVT prophylaxis -Hold chemical prophylaxis for now due to surgery -SATISH sandoval and SCDs in LLE only Code Status -Level I, FULL RESUSCITATION STATUS (Genoveva Sears ., PA-C) Reviewed: Pt Seen/Exam by Me (Cathleen Norris DO) History Pt does not like being in the hospital. No new concerns. No chest pain, SOB. Agree with HPI/ROS as noted above (Cathleen Norris, DO) General Appearance: no apparent distress, obese Respiratory: normal breath sounds, no respiratory distress Cardiovascular: normal peripheral pulses, regular rate, rhythm Gastrointestinal: non tender, soft Extremities: non-tender, no pedal edema Neurologic/Psychiatric: alert, other (irritable) Skin Characteristics: normal color, warm/dry (Cathleen Norris DO) Assessment/Plan Agree with plan as outlined above Pt with likely osteoporotic fracture that occurred after attempt at weight bearing. Pt is to be nonweightbearing at baseline Initially tried to manage with cast, now planning for OR later today Pt appears acceptable risk for OR (Cathleen Norris, DO)
[2016-05-05] MEDS ORDERED: FENTANYL CITRATE INJ 50 MCG/1 ML 2 ML VIAL ONE ×3 (12:31→16:19)
[2016-05-05] MEDS ORDERED: MIDAZOLAM HCL 1 MG/ML 2ML VIAL ONE (12:31)
[2016-05-05] MEDS ORDERED: CEFAZOLIN IV 3,000 MG/65 ML D5W IV ONE (13:04)
[2016-05-05] MEDS ORDERED: NURSING VERBAL MED ORDER STA (13:04)
--- NOTE | 2016-05-05 13:30 | History & Physical Bridge Note ---
H&P Re-Evaluation Bridge Note: I have examined the patient, reviewed the History & Physical and in the interval since the performance of the History & Physical I have noted the following changes of clinical significance: No changes noted
[2016-05-05] MEDS ORDERED: LIDOCAINE HCL 2% 2 ML VIAL (20MG/ML) ONE (14:06)
[2016-05-05] MEDS ORDERED: ROCURONIUM BROMIDE 10 MG/ML 5 ML VIAL ONE (14:06)
[2016-05-05] MEDS ORDERED: PROPOFOL IV EMULSION 10 MG/ML 20 ML VIAL IV ONE (14:06)
[2016-05-05] MEDS ORDERED: DEXAMETHASONE SOD INJ 4 MG/ML VIAL ONE (14:08)
[2016-05-05] MEDS ORDERED: ONDANSETRON INJ 2 MG/ML 2 ML VIAL ONE (14:08)
[2016-05-05] MEDS ORDERED: ONDANSETRON INJ 2 MG/ML 2 ML VIAL IV PRN ×2 (14:30→16:15)
[2016-05-05] MEDS ORDERED: LABETALOL HCL IV 5 MG/ML 20ML IV PRN (14:30)
[2016-05-05] MEDS ORDERED: ATROPINE SULFATE 0.1 MG/ML 5ML SYR IV PRN (14:30)
[2016-05-05] MEDS ORDERED: LABETALOL HCL IV 5 MG/ML 20ML ONE (14:57)
[2016-05-05] MEDS ORDERED: GLYCOPYRROLATE INJ 0.2 MG/ML VIAL ONE (15:36)
[2016-05-05] MEDS ORDERED: NEOSTIGMINE METHYLSULFATE 5 MG/5 ML SYR ONE (15:36)
--- NOTE | 2016-05-05 15:50 | DIAGNOSTIC IMAGING REPORT ---
INTRAOPERATIVE FLUOROSCOPIC IMAGES OF THE RIGHT TIBIA AND FIBULA CLINICAL HISTORY: Open reduction internal fixation. COMPARISON STUDY: Right tibia and fibula radiographs May 04, 2016. Fluoroscopy time: 1 minute and 4 seconds. FINDINGS: Fluoroscopic images demonstrate findings consistent with placement of a right tibial intramedullary siobhan with proximal and distal screws. Hardware fixates the mid shaft fracture of the right tibia. Fracture alignment has improved. There are no unexpected radiopaque foreign bodies. IMPRESSION: Findings consistent with internal fixation of the right tibial fracture with intramedullary siobhan. Electronically signed by: Romeo Atkinson M.D. 05/05/2016 3:48 PM Dictated Date/Time: 05/05/2016 3:46 PM
--- NOTE | 2016-05-05 15:53 | PROGRESS NOTE ---
DATE: 05/05/2016 SUBJECTIVE: A 76-year-old female admitted with a right midshaft comminuted tibia fracture. She has continued to have quite a bit of pain in the cast. She has trouble even moving about due to the pain. She is pretty miserable. No other complaints. OBJECTIVE: VITAL SIGNS: Temperature is 36.8. Vital signs stable. PHYSICAL EXAMINATION: GENERAL: This is a pleasant elderly female. She is lying in bed and just looks uncomfortable. EXTREMITIES: Examination of the right leg reveals the cast to be fitting well. Leg alignment looks pretty normal for a valgusly arthritic knee. She can flex or extend her toes appropriately. Grossly neurologically intact. LABS: Hemoglobin is 10.4, hematocrit 31.2. Electrolytes are stable. Creatinine improved at 1.0. ASSESSMENT: A 76-year-old female with a right comminuted midshaft tibia fracture with a more proximal fibula fracture with persistent pain. Certainly not unexpected to have pain, but I was hoping that this cast would immobilize her much, so that she would be doing better. PLAN: We talked this morning about treatment options. I do think considering her fracture pattern, that IM rodding is appropriate and would help stabilize her mead and help her pain lynn. I think it is going to be difficult to manage her in this cast, considering her very large soft tissue envelope around her thigh as well as her significant deformity around her ankle. After further discussion and consideration, I think IM nailing is the most appropriate treatment for this patient as long as she is medically able to proceed with the surgery. We are going to proceed with IM nailing. Dr. Dutton my partner is in the operating room today and he is going to do this. I did explain to the patient in depth the risks and benefits and informed consent was obtained. If she is not cleared today, I will do it tomorrow likely. This should help free her up, allow easier mobilization and decrease the risks of cast pressure sores on various parts of her anatomy. I did talk to the medical doctors and they are looking into making sure she is optimized. We will proceed as above.
--- NOTE | 2016-05-05 16:06 | [facility] Post Operative Brief Note ---
Immediate Operative Summary Operative Date May 05, 2016. Pre-Operative Diagnosis comminuted midshaft right tibia fracture Post-Operative Diagnosis comminuted midshaft right tibia fracture Procedure(s) Performed Right Tibia Intramedullary Nail Surgeon Dr. Dutton [employer] Surgeon(s) Faheem Hamlin PA-C Estimated Blood Loss 200 ml Findings tibia fracture Specimens none per surgeon Complication(s) None Disposition Recovery Room / PACU
[2016-05-05] MEDS ORDERED: BISACODYL 10 MG SUPP PR PRN (16:15)
[2016-05-05] MEDS ORDERED: MoRPHine SULFATE 4 MG/ML 1 ML CARP\\VIAL IV PRN (16:15)
[2016-05-05] MEDS ORDERED: MAGNESIUM HYDROXIDE SUSP 30 ML UDC PO PRN (16:15)
[2016-05-05] MEDS ORDERED: HydrALAZINE HCL 20 MG/ML VIAL ONE (16:33)
[2016-05-05] MEDS: HYDROmorphone INJ 2 MG/ML SYR/VIAL IV PRN ×3 (16:39→17:03)
--- NOTE | 2016-05-05 16:59 | OPERATIVE REPORT ---
DATE OF OPERATION: 05/05/2016 PREOPERATIVE DIAGNOSIS: Comminuted fracture of the right tibia. POSTOPERATIVE DIAGNOSIS: Same. PROCEDURE: Included IM rodding right tibia locked proximally and distally. SURGEON: Dr. Dutton. ORCHARD HAND: Faheem Hamlin PA-C. COMPLICATIONS: Zero. BLOOD LOSS: 250. DESCRIPTION OF PROCEDURE: The patient was taken to the operating room after informed consent was obtained for the patient. Her right lower extremity was prepped and draped sterile, scrubbed with Betadine, prepped with ChloraPrep as well. We actually prepped her up almost to her groin, the whole thing was draped sterile. We commenced with a skin incision over the medial aspect of the right tibial tuberosity. I kept the patellar tendon slightly lateral and gauged the anterior cortex with an awl, advanced the guidewire down to the distal tibia with a fairly anatomic reduction. We reamed up to 11.5, put in 10 mm nail. It was locked proximally and distally. The alignment was certainly satisfactory. We irrigated and closed in layers, wrapped her in sterile pressure dressing as well. The patient was then extubated to PACU stable. There were no apparent interoperative complications. There were interoperative concerns with a significant hematoma, significant blistering of the skin in the anterior aspect. The compartments were soft. There was no evidence of compartment syndrome. She also had a significant deformity of the knee and significant deformity of the ankle prior to start of surgery. Sponge and needle count correct at the close of the procedure. I attest to the content of the Intraoperative Record and any orders documented therein. Any exceptio ns are noted below.
[2016-05-05] MEDS ORDERED: HydrALAZINE HCL 20 MG/ML VIAL IV. STA ×2 (17:20→17:21)
--- NOTE | 2016-05-05 17:20 | Anesthesiology Progress Note ---
Anesthesia Post Op Note Date & Time May 05, 2016 at 17:09 Vital Signs Pain Intensity: 0 Vital Signs Past 12 Hours Date Time Temp Pulse Resp B/P Pulse Ox O2 Delivery O2 Flow Rate FiO2 05/05/16 16:08 36.8 57 16 248/234 100 Mask 10 05/05/16 08:23 36.8 62 18 129/67 92 Room Air 05/05/16 08:00 Room Air Notes Mental Status: alert / awake / arousable, participated in evaluation Pt Amnestic to Procedure: Yes Nausea / Vomiting: adequately controlled Pain: adequately controlled Airway Patency, RR, SpO2: stable & adequate BP & HR: stable & adequate, see Notes Hydration State: stable & adequate Anesthetic Complications: no major complications apparent The patient had a R tibial nailing by Dr. Dutton under general anesthesia. Intraoperatively, she was noted to be hypertensive 170s/60s so she was given two doses of labetalol. She was bradycardic and her other vitals were stable. The patient was extubated and brought to the PACU. She was awake and grimacing and her HR, SpO2, RR, and temperature were stable on admission. However, the PACU nurse was unable to get a blood pressure measurement due to either body habitus, blood pressure cuff positioning, or severe HTN. The first readings were 200s/200s then 100s/100s. Several different sized BP cuffs were tried in multiple locations. The patient was given hydralazine 10 mg IV and a blood pressure was still unable to be obtained despite a strong pulse. A second dose of hydralazine was given which brought the pressure down to 160/54. Her pressure has subsequently come down to 130s/60s and appears stable. The patient is awake and comfortable. I spoke to Dr. Norris from medicine and she agrees that the patient should be monitored overnight on telemetry due to her HTN. Dr. Dutton is aware and also agrees with this plan.
[2016-05-05] MEDS: SODIUM CHLORIDE 0.9% 1000ML 1,000 ML IV SCH (17:56)
[2016-05-05] MEDS: POTASSIUM CHLORIDE INJ 10 MEQ in SODIUM CHLORIDE 0.9% 1000ML 1,000 ML IV SCH (19:46)
[2016-05-05] MEDS: DOCUSATE SODIUM 100 MG CAP PO SCH (21:00)
[2016-05-05] MEDS: RANITIDINE HCL 150 MG TAB PO SCH (21:02)
[2016-05-05] MEDS: CEFAZOLIN IV 2,000 MG in DEXTROSE 5% 50ML 50 ML IV SCH (21:06)
[2016-05-05] MEDS: ACETAMINOPHEN IV 1,000 MG in EMPTY BAG 0 ML IV SCH (22:17)
[2016-05-06] VITALS (10 sets, daily range): BP systolic 125–148; BP diastolic 52–74; PULSE 59–71; TEMP 36.4–37.4; O2SAT 94–99
[2016-05-06] MEDS: HYDROmorphone INJ 1 MG/ML SYR IV PRN ×4 (02:55→21:12)
[2016-05-06] MEDS: CEFAZOLIN IV 2,000 MG in DEXTROSE 5% 50ML 50 ML IV SCH (06:00)
[2016-05-06] MEDS: POTASSIUM CHLORIDE INJ 10 MEQ in SODIUM CHLORIDE 0.9% 1000ML 1,000 ML IV SCH (06:00)
[2016-05-06] MEDS: ACETAMINOPHEN IV 1,000 MG in EMPTY BAG 0 ML IV SCH ×2 (06:01→13:51)
[2016-05-06 07:06] LABS: HEMATOCRIT 28.7 % (37-47); MEAN CORPUSCULAR HEMOGLOBIN 32.1 pg (25-34); MEAN CORPUSCULAR HGB CONC 32.8 g/dl (32-36); MEAN PLATELET VOLUME 9.3 fL (7.4-10.4); PLATELET COUNT 200 K/uL (130-400); RED BLOOD COUNT 2.93 M/uL (4.2-5.4)
[2016-05-06 07:45] LABS: CALCIUM 8.3 mg/dl (8.5-10.1); CREATININE 0.91 mg/dl (0.60-1.20); POTASSIUM 4.4 mmol/L (3.5-5.1)
--- NOTE | 2016-05-06 08:05 | Anesthesiology Progress Note ---
Anesthesia Post Op Note Date & Time May 06, 2016 at 08:04 Vital Signs Vital Signs Past 12 Hours Date Time Temp Pulse Resp B/P Pulse Ox O2 Delivery O2 Flow Rate FiO2 05/06/16 07:21 36.8 59 16 148/74 99 2.0 05/06/16 04:00 98 Nasal Cannula 2.0 05/06/16 03:42 37.2 59 19 135/65 98 Nasal Cannula 2.0 05/06/16 00:07 37.4 61 21 125/56 97 Nasal Cannula 2.0 05/05/16 23:59 97 Nasal Cannula 2.0 05/05/16 20:21 67 18 138/70 97 Nasal Cannula 2.0 Notes Mental Status: alert / awake / arousable, participated in evaluation Pt Amnestic to Procedure: Yes Nausea / Vomiting: adequately controlled Pain: adequately controlled Airway Patency, RR, SpO2: stable & adequate BP & HR: stable & adequate Hydration State: stable & adequate Anesthetic Complications: no major complications apparent
--- NOTE | 2016-05-06 08:41 | Hospitalist Progress Note ---
Hospitalist Progress Note Date of Service May 06, 2016. (Chitra Hope PA-C) Subjective Pt evaluation today including: conversation w/ patient, physical exam, chart review, lab review, review of studies, review of inpatient medication list Pain: R leg pain PO Intake: Good Voiding: fuentes catheter in place The patient was seen and examined this morning. Pt reports right leg pain but that she just got some pain medication for this and it's improving. She also reports her left leg has a dull sore ache but that this is chronic. Currently is wearing 2 L O2, I turned it down at bedside because the patient reports not wearing it at baseline at all. She remained at 99% on 1 L, I have discussed with nursing to turn it off if she remains in high 90s. Pt denies shortness of breath, cough, chest pain, palpitations, abd pain, n/v/d. All Other Systems: Reviewed and Negative (See HPI. ) (Chitra Hoep, SARA) Objective Vital Signs Date Time Temp Pulse Resp B/P Pulse Ox O2 Delivery O2 Flow Rate FiO2 05/06/16 07:21 36.8 59 16 148/74 99 2.0 05/06/16 04:00 98 Nasal Cannula 2.0 05/06/16 03:42 37.2 59 19 135/65 98 Nasal Cannula 2.0 05/06/16 00:07 37.4 61 21 125/56 97 Nasal Cannula 2.0 05/05/16 23:59 97 Nasal Cannula 2.0 05/05/16 20:21 67 18 138/70 97 Nasal Cannula 2.0 05/05/16 20:00 98 Nasal Cannula 2.0 05/05/16 19:21 36.8 63 22 135/68 98 Nasal Cannula 2.0 05/05/16 18:21 53 17 142/60 96 Nasal Cannula 2.0 T-piece 05/05/16 17:53 36.8 52 17 116/57 97 Nasal Cannula 2.0 05/05/16 17:30 55 17 116/77 98 Nasal Cannula 2 05/05/16 17:15 50 19 125/49 97 Nasal Cannula 2 05/05/16 17:10 36.5 54 15 120/57 98 Nasal Cannula 2 05/05/16 17:00 54 13 134/47 98 Nasal Cannula 2 05/05/16 16:50 50 16 163/54 98 Nasal Cannula 2 05/05/16 16:40 52 18 99 Nasal Cannula 2 05/05/16 16:34 179/147 05/05/16 16:30 50 16 99 Nasal Cannula 2 05/05/16 16:22 49 20 115/101 99 Mask 10 05/05/16 16:12 53 17 133/120 100 Mask 10 05/05/16 16:08 36.8 57 16 248/234 100 Mask 10 05/05/16 08:23 36.8 62 18 129/67 92 Room Air (Chitra Hope PA-C) Physical Exam General Appearance: no apparent distress, + obese Eyes: PERRL, EOMI ENT: hearing grossly normal, + pertinent finding (mucous membranes dry) Neck: supple, no JVD Respiratory/Chest: no respiratory distress, no accessory muscle use, + pertinent finding (Clear breath sounds except for faint crackles in the LLL. Incentive spirometry performed by pt at bedside. ) Cardiovascular: regular rate, rhythm, + systolic murmur (grade III/) Abdomen: normal bowel sounds, non tender, soft, + pertinent finding ( Indwelling fuentes in place draining clear yellow urine) Extremities: no calf tenderness, + pertinent finding (RLE wrapped in AUDIE, sensation to light touch distally is diminished, has feelings on lateral aspects of foot, not on distal toes. ) Neurologic/Psychiatric: alert, oriented x 3 Skin: normal color, warm/dry (Chitra Hope PA-C) Laboratory Results Last 24 Hours Test 05/06/16 06:38 White Blood Count 7.60 K/uL Red Blood Count 2.93 M/uL Hemoglobin 9.4 g/dL Hematocrit 28.7 % Mean Corpuscular Volume 98.0 fL Mean Corpuscular Hemoglobin 32.1 pg Mean Corpuscular Hemoglobin Concent 32.8 g/dl RDW Standard Deviation 48.5 fL RDW Coefficient of Variation 13.5 % Platelet Count 200 K/uL Mean Platelet Volume 9.3 fL Sodium Level 135 mmol/L Potassium Level 4.4 mmol/L Chloride Level 98 mmol/L Carbon Dioxide Level 27 mmol/L Anion Gap 10.0 mmol/L Blood Urea Nitrogen 16 mg/dl Creatinine 0.91 mg/dl Est Creatinine Clear Calc Drug Dose 62.2 ml/min Estimated GFR () 72.0 Estimated GFR (Non- 62.2 BUN/Creatinine Ratio 17.0 Random Glucose 117 mg/dl Calcium Level 8.3 mg/dl (Chitra Hope PA-C) Assessment and Plan 76 y/o female with a history of morbid obesity, seizures, HTN, MILAGRO, severe osteoarthritis, and questionable history of CHF who presented following an unclear trauma in the bathroom resulting in a mid tibial dislocated, fragmented fracture. Pt denies falling and states that she put all of her weight on her RLE just prior to the fracture. The pt is wheelchair bound and requires assistance transferring. Tibial fracture - POD #1 of Included IM rodding right tibia locked proximally and distally by Dr. Dutton - Pain management and anticoagulation per the primary team - Continue Dilaudid 1 mg IV q3h prn pain, oxycodone PO - Bowel regimen with dulcolax, senna, MOM prn JO ANN/Dehydration--improved. Baseline creatinine WNL, around 0.8 - Creatinine elevated at 1.3 upon arrival - Cr. back to baseline of 1.0 - Restarted Furosemide this morning - Cont to hold losartan as BP allows- likely will restart tomorrow - Stop IVFs and encourage oral hydration today Seizures--stable -Continue Tegretol 300 mg PO BID, Lamictal 300 mg PO q12h, and Keppra 1000 mg PO BID HTN--stable, last recorded BP 129/67 -Continue to hold losartan until renal function is checked post operatively and remains stable DVT prophylaxis - Hold chemical prophylaxis for now due to surgery - will ask ortho to determine when and if they'd like to restart chemical anticoagulation. -SATISH sandoval and SCDs in LLE only Code Status: Full Code (Chitra Hope PA-C) Reviewed: Pt Seen/Exam by Me (Cathleen Norris DO) History Pt has pain related to post-op status. Doing well on RA, no SOB. Tolerating PO. Agree with HPI/ROS as noted. (Cathleen Norris DO) General Appearance: no apparent distress, obese Respiratory: normal breath sounds, no respiratory distress Cardiovascular: normal peripheral pulses, regular rate, rhythm Gastrointestinal: non tender, soft Extremities: non-tender, no pedal edema Neurologic/Psychiatric: alert Skin Characteristics: normal color, warm/dry (Cathleen Norris, DO) Assessment/Plan Agree with plan as outlined above Pt with likely osteoporotic fracture that occurred after attempt at weight bearing. Pt is to be nonweightbearing at baseline Initially tried to manage with cast, however this was deemed less suitable and pt is s/p OR on 05/05 Planning for d/c back to or [facility] PT/OT pending (Cathleen Norris, DO)
[2016-05-06] MEDS: SENNA 8.6 MG TAB PO SCH (09:02)
[2016-05-06] MEDS: ARTIFICIAL TEARS OP SOLN OPB SCH ×8 (09:02→21:50)
[2016-05-06] MEDS: LEVETIRACETAM 500 MG TAB PO SCH ×2 (09:03→21:48)
[2016-05-06] MEDS: CARBAMAZEPINE 200 MG TAB PO SCH ×2 (09:04→21:47)
--- NOTE | 2016-05-06 10:47 | PROGRESS NOTE ---
DATE: 05/06/2016 DATE: 05/06/2016. PROGRESS: She is alert this morning, a little bit somnolent but arousable. Pain controlled. OBJECTIVE: Vital signs stable. Blood pressure stable. Hemoglobin 9.2. Good pulses to the extremities. ASSESSMENT: Status post intramedullary rodding of her right tibia performed on 05/05/2016 along with dehydration, hypertension. She is also wheelchair bound. She has been bed to chair progressing over the last several years at the very minimal. PLAN: At this point in time we will try to get her out of bed to chair with physical therapy. We are going to keep her dressing intact to her right lower extremity for the next several days. She can be touch weightbearing on the right and has been for years. We will make arrangements for her to be transferred either back to the nursing facility or possibly to a rehab center as well for 10 days.
[2016-05-06] MEDS: OXYCODONE/ACETAMINOPHEN 5-325 TAB PO PRN (11:25)
[2016-05-06] MEDS: ASPIRIN 325 MG ECTAB PO SCH (11:25)
[2016-05-06] MEDS: DOCUSATE SODIUM 100 MG CAP PO SCH ×2 (11:25→21:49)
[2016-05-06] MEDS: FUROSEMIDE 20 MG TAB PO SCH (11:26)
[2016-05-06] MEDS ORDERED: NURSING VERBAL MED ORDER ONE (13:00)
[2016-05-06] MEDS: RANITIDINE HCL 150 MG TAB PO SCH (21:49)
[2016-05-07] MEDS: OXYCODONE/ACETAMINOPHEN 5-325 TAB PO PRN ×2 (03:30→12:28)
[2016-05-07 07:37] LABS: HEMATOCRIT 26.2 % (37-47); MEAN CELL VOLUME 96.7 fL (80-100); MEAN CORPUSCULAR HEMOGLOBIN 32.1 pg (25-34); MEAN CORPUSCULAR HGB CONC 33.2 g/dl (32-36); MEAN PLATELET VOLUME 9.3 fL (7.4-10.4); PLATELET COUNT 210 K/uL (130-400); RED BLOOD COUNT 2.71 M/uL (4.2-5.4); WHITE BLOOD COUNT 6.69 K/uL (4.8-10.8)
--- NOTE | 2016-05-07 07:45 | Hospitalist Progress Note ---
Hospitalist Progress Note Date of Service May 07, 2016. (Chitra Hope PA-C) Subjective Pt evaluation today including: conversation w/ patient, physical exam, chart review, lab review, review of studies, review of inpatient medication list Pain: Left leg, moderate PO Intake: Good Voiding: fuentes catheter in place The patient was seen and examined this morning. Pt reports left leg pain is moderate this morning. Her pain is controlled with the current regimen but reports it wears off after about 3 hours. She has not yet had a bowel movement since being here. She is ready to go back to [facility]. She has no new complaints or concerns. She denies chest pain, shortness of breath, abdominal pain. I have ordered a dulcolax suppository and have asked nursing to remove the fuentes catheter this morning for a void trial. Likely discharge to today. Constitutional: No chills, No fever ENT: No sore throat, No trouble swallowing Respiratory: No cough, No shortness of breath Cardiovascular: No chest pain, No palpitations Abdomen: + constipation, No diarrhea, No nausea, No pain, No vomiting Musculoskeletal: + joint pain, No calf pain, No swelling (Chitra Hope PA-C) Objective Vital Signs Date Time Temp Pulse Resp B/P Pulse Ox O2 Delivery O2 Flow Rate FiO2 05/07/16 00:10 Room Air 05/06/16 23:37 36.8 71 18 130/73 95 Room Air 05/06/16 16:00 96 Room Air 05/06/16 15:53 36.6 59 20 125/52 96 Room Air 05/06/16 13:58 59 94 05/06/16 12:00 Room Air 05/06/16 11:15 36.4 59 16 138/69 94 Room Air 05/06/16 11:10 36.6 59 20 96 2.0 05/06/16 08:00 99 Nasal Cannula 2.0 (Chitra Hope PA-C) Physical Exam General Appearance: WD/WN, + obese Eyes: PERRL, EOMI ENT: hearing grossly normal, pharynx normal Neck: no JVD Respiratory/Chest: lungs clear (faint crackles at the RLL. ), normal breath sounds, no respiratory distress, no accessory muscle use Cardiovascular: regular rate, rhythm, + systolic murmur Abdomen: normal bowel sounds, non tender, soft, + pertinent finding (Fuentes catheter in place, draining clear yellow urine.) Extremities: non-tender, no pedal edema, no calf tenderness, + pertinent finding (RLE wrapped in AUDIE wrap and elevated. Sensation to light touch intact distally.) Neurologic/Psychiatric: alert, normal mood/affect, oriented x 3 Skin: normal color, warm/dry (Chitra Hope PA-C) Laboratory Results Last 24 Hours Test 05/07/16 07:05 White Blood Count 6.69 K/uL Red Blood Count 2.71 M/uL Hemoglobin 8.7 g/dL Hematocrit 26.2 % Mean Corpuscular Volume 96.7 fL Mean Corpuscular Hemoglobin 32.1 pg Mean Corpuscular Hemoglobin Concent 33.2 g/dl RDW Standard Deviation 47.8 fL RDW Coefficient of Variation 13.5 % Platelet Count 210 K/uL Mean Platelet Volume 9.3 fL (Chitra Hope PA-C) Assessment and Plan 76 y/o female with a history of morbid obesity, seizures, HTN, MILAGRO, severe osteoarthritis, and questionable history of CHF who presented following an unclear trauma in the bathroom resulting in a mid tibial dislocated, fragmented fracture. Pt denies falling and states that she put all of her weight on her RLE just prior to the fracture. The pt is wheelchair bound and requires assistance transferring. Tibial fracture - POD #2 of Included IM rodding right tibia locked proximally and distally by Dr. Dutton - Pain management and anticoagulation per the primary team - Continue Dilaudid 1 mg IV q3h prn pain, oxycodone PO - Bowel regimen with dulcolax, senna, MOM prn - will order a dulcolax suppository now as pt has not had a bowel movement since being admitted here - Remove fuentes catheter today, void trial. JO ANN/Dehydration--resolved- Baseline creatinine WNL, around 0.8 - Creatinine elevated at 1.3 upon arrival - Cr. today is 0.79. Continue to encourage oral hydration. - Restarted Furosemide this morning - Restart losartan today Seizures--stable -Continue Tegretol 300 mg PO BID, Lamictal 300 mg PO q12h, and Keppra 1000 mg PO BID HTN--stable, last recorded BP 129/67 - Restart losartan DVT prophylaxis - Hold chemical prophylaxis for now due to surgery - will ask ortho to determine when and if they'd like to restart chemical anticoagulation. -SATISH sandoval and SCDs in LLE only Code Status: Full Code Disposition: From [facility], return likely today or tomorrow. (Cihtra Hope, PALamarC) Reviewed: Pt Seen/Exam by Me (Cathleen Norris, ) History See same day d/c summary for details. (Cathleen Norris, ) Assessment/Plan Agree with plan as outlined above Pt with likely osteoporotic fracture that occurred after attempt at weight bearing. Pt is to be nonweightbearing at baseline Initially tried to manage with cast, however this was deemed less suitable and pt is s/p OR on 05/05 Pt preference to return to [facility] rather than inpt rehab with [facility] (Cathleen Norris, )
[2016-05-07 08:06] VITALS: BP 186/70; PULSE 68; TEMP 36.6; O2SAT 96
[2016-05-07 08:07] LABS: BUN/CREATININE RATIO 22.6 (10-20); CALCIUM 8.3 mg/dl (8.5-10.1); CREATININE 0.78 mg/dl (0.60-1.20); POTASSIUM 3.8 mmol/L (3.5-5.1)
[2016-05-07] MEDS: ARTIFICIAL TEARS OP SOLN OPB SCH ×4 (09:05→12:12)
[2016-05-07] MEDS: DOCUSATE SODIUM 100 MG CAP PO SCH (09:05)
[2016-05-07] MEDS: SENNA 8.6 MG TAB PO SCH (09:05)
[2016-05-07] MEDS: ASPIRIN 325 MG ECTAB PO SCH (09:05)
[2016-05-07] MEDS: CARBAMAZEPINE 200 MG TAB PO SCH (09:05)
[2016-05-07] MEDS: FUROSEMIDE 20 MG TAB PO SCH (09:05)
[2016-05-07] MEDS: LEVETIRACETAM 500 MG TAB PO SCH (09:06)
[2016-05-07] MEDS ORDERED: BISACODYL 10 MG SUPP PR STA (09:50)
[2016-05-07] MEDS ORDERED: LOSARTAN POTASSIUM 25 MG TAB PO SCH (10:15)
--- NOTE | 2016-05-07 11:22 | Discharge Instructions ---
Discharge Instructions Admission Reason for Admission: Tibial Fracture Discharge Discharge Diagnosis / Problem: SAME ABOVE Discharge Goals Goal(s): Decrease discomfort, Improve function, Increase independence Activity Recommendations Activity Limitations: as noted below Lifting Limitations: until after follow-up appointment Exercise/Sports Limitations: until after follow-up appointment Shower/Bathe: keep incision dry Weightbearing Status: Right toe touch . Instructions / Follow-Up Instructions / Follow-Up MEDICATIONS: * Resume previous medications unless instructed otherwise by your surgeon. * Always take pain medication on a full stomach or with food to avoid upset stomach. * Do not drink alcohol or drive while taking narcotics. * Ibuprofen or Tylenol may be taken if narcotic not needed. SPECIAL CARE INSTRUCTIONS: __ None _X_ Keep extremity elevated and iced x 48 hours; apply ice 20-30 minutes 8-10 times/day. May remove at night. __ Crutches __ May discard when able __ Brace/Post-op shoe __ 24 hrs/day __ Remove at night _X_ Dressing _X_ Maintain until seen in office, may shower with plastic over site __ Remove dressings in 24-48 hours and then may shower __ Cover incisions with band-aids after showering __ Do not remove steri-strips Call physician if chills or temperature rises above 102 degrees or pain unrelieved by prescribed pain medications. Office [phone] RIGHT TOE TOUCH ONLY FOLLOW UP IN DR. JOY OFFICE IN 2 WEEKS DRESSING CHANGE EVERY 2-3 DAYS USE ASPIRIN 325MG DAILY FOR DVT PROPHYLAXIS UNTIL SEEN IN THE OFFICE USE SATISH HOSE ON UNAFFECTED LEG UNTIL SEEN IN THE OFFICE Current Hospital Diet Patient's current hospital diet: Regular Diet Discharge Diet Recommended Diet: Regular Diet Procedures Procedures Performed: Right Tibia Intramedullary Nail Pending Studies Studies pending at discharge: no Medical Emergencies . Who to Call and When: Medical Emergencies: If at any time you feel your situation is an emergency, please call 911 immediately. . Non-Emergent Contact Non-Emergency issues call your: Primary Care Provider . "Provider Documentation" section prepared by Faheem Hamlin. VTE Core Measure Inpt VTE Proph given/why not?: Other Anticoagulation, T.E.D. Stockings
[2016-05-07] MEDS ORDERED: BISA1TAB15 PO (11:45)
--- NOTE | 2016-05-07 11:46 | Discharge Instructions ---
Discharge Instructions Admission Reason for Admission: Tibial Fracture Activity Recommendations . Current Hospital Diet Patient's current hospital diet: Regular Diet Procedures Procedures Performed: Right Tibia Intramedullary Nail Medical Emergencies . Who to Call and When: Medical Emergencies: If at any time you feel your situation is an emergency, please call 911 immediately. . Non-Emergent Contact . . "Provider Documentation" section prepared by Cindy Hope. VTE Core Measure Inpt VTE Proph given/why not?: Other Anticoagulation, T.E.D. Stockings
--- NOTE | 2016-05-07 12:04 | Discharge Instructions ---
Discharge Instructions Admission Reason for Admission: Tibial Fracture (Chitra Hope PA-C) Discharge Discharge Diagnosis / Problem: Tibial fracture (Chitra Hope PA-C) Discharge Goals Goal(s): Decrease discomfort, Improve function (Chitra Hope PA-C) Activity Recommendations Activity Limitations: as noted below Per orthopedics discharge instructions . (Chitra Hope PA-C) Instructions / Follow-Up Instructions / Follow-Up Continue taking your medications as prescribed. It is important that you remain well hydrated and take stool softeners while taking narcotics so that your bowels continue to move. Only take pain medication when needed for your leg pain. Transition to only using tylenol when you can tolerate it. Please discuss your pain medication regimen with the physician at [facility] upon return there. Follow up with the physician at [facility] within 24-48hours upon return there. Follow up with orthopedics as scheduled. See those discharge instructions for more details. (Chitra Hope PA-C) Current Hospital Diet Patient's current hospital diet: Regular Diet (Chitra Hope PA-C) Discharge Diet Recommended Diet: AHA Diet (Heart Healthy), Diabetes Type 2 Diet (Chitra Hope PA-C) Procedures Procedures Performed: Right Tibia Intramedullary Nail (Chitra Hope PA-C) Pending Studies Studies pending at discharge: no (Chitra Hope PA-C) Medical Emergencies . Who to Call and When: Medical Emergencies: If at any time you feel your situation is an emergency, please call 911 immediately. . (Chitra Hope PA-C) Non-Emergent Contact Non-Emergency issues call your: Primary Care Provider . (Chitra Hope PA-C) . "Provider Documentation" section prepared by Cindy Hope. (Chitra Hope PA-C) VTE Core Measure Inpt VTE Proph given/why not?: Other Anticoagulation, T.E.D. Stockings (Chitra Hope, JOELC)
[2016-05-07 12:30] VITALS: BP 143/70; PULSE 72
--- NOTE | 2016-05-07 12:33 | Discharge Summary ---
Discharge Summary Admission Date: May 04, 2016 at 04:06 Discharge Date: May 07, 2016 Discharge Disposition: retirement facility Principal Diagnosis: Tibial Fracture Problems/Secondary Diagnoses: Morbid obesity, seizures, HTN, MILAGRO, severe osteoarthritis Immunizations: Have You Had Influenza Vaccine: Unknown History of Tetanus Vaccine?: Unknown History of Pneumococcal: Unknown History of Hepatitis B Vaccine: Unknown Procedures: 05/05/16: R Tibia intramedullary nail placement Consultations: Orthopedics (Chitra Hope PA-C) Medication Reconciliation New Medications: Bisacodyl (Bisacodyl) 5 Mg Tab 1 TAB PO BID for 30 Days, #60 TAB Continued Medications: Acetaminophen (Tylenol) 325 Mg Tab 650 MG PO Q6H PRN for Pain or Fever, TAB DNE 3GM/24 HOURS Artificial Tears (Artificial Tears) Soln 1 DROPS OPB QID, #1 BTL Bisacodyl (Dulcolax) 10 Mg Sup 1 SUPP VT PRN, SUP NEEDED FOR NO BOWEL MOVEMENT IN THREE DAYS. Carbamazepine (Carbamazepine) 200 Mg Tab 300 MG PO BID TAKE 1.5 X 200 MG TABLET= 300 MG TWICE A DAY. Cholecalciferol (Vitamin D3) 1,000 Unit Tab 1000 UNITS PO DAILY Furosemide (Lasix) 40 Mg Tab 60 MG PO DAILY, TAB TAKE 1.5 OF A 40MG TABLET Hydrocodone/Acetaminophen 5MG/325MG ([place] 5MG/325MG) Tab 1 TABLET PO Q4 PRN for MOD PAIN, TAB NTE 3GM APAP/24HRS Lamotrigine (Lamictal) 150 Mg Tab 300 MG PO Q12, TAB Levetiracetam (Keppra) 1,000 Mg Tab 1000 MG PO BID, TAB Losartan Potassium (Cozaar) 25 Mg Tab 25 MG PO DAILY, TAB Magnesium Hydroxide (Milk Of Magnesia) 30 Ml Susp 30 ML PO PRN NEEDED FOR NO BOWEL MOVEMENT IN THREE DAYS. Oxycodone Hcl (Oxycodone Hcl) 10 Mg Tab 10 MG PO HS Prune Juice (Prune Juice ) Liqd OZ PO PRN UD OR STEWED PRUNES IF NO BM 2 DAYS Ranitidine HCl (Ranitidine HCl) 150 Mg Tab 150 MG PO HS Senna (Senokot) 8.6 Mg Tab 8.6 MG PO DAILY, 0 Refills Discontinued Medications: Hydrocodone/Acetaminophen 5MG/325MG ([place] 5MG/325MG) Tab 2 TABLETS PO Q4H PRN for SEVERE PAIN, TAB NTE 3GM APAP/24HRS Discharge Exam Pt evaluation today including: conversation w/ patient, physical exam, chart review, lab review, review of studies, review of inpatient medication list Pain: Left leg, moderate PO Intake: Good Voiding: fuentes catheter in place The patient was seen and examined this morning. Pt reports left leg pain is moderate this morning. Her pain is controlled with the current regimen but reports it wears off after about 3 hours. She has not yet had a bowel movement since being here. She is ready to go back to [facility]. She has no new complaints or concerns. She denies chest pain, shortness of breath, abdominal pain. Review of Systems: Constitutional: No chills, No fever ENT: No sore throat, No tinnitus Respiratory: No cough, No dyspnea at rest, No shortness of breath Cardiovascular: No chest pain, No palpitations Abdomen: No constipation (Had large BM today after dulcolax suppository), No diarrhea, No nausea, No pain, No vomiting Musculoskeletal: No calf pain Genitourinary - Female: No dysuria Neurologic: No numbness/tingling Physical Exam: General Appearance: WD/WN, no apparent distress, + obese Eyes: PERRL, EOMI ENT: pharynx normal, + pertinent finding (mucous membrane moist) Neck: supple, no JVD Respiratory/Chest: normal breath sounds, no respiratory distress, no accessory muscle use, + pertinent finding (faint crackles at RLL, likely atelectasis) Cardiovascular: regular rate, rhythm, normal peripheral pulses, + systolic murmur Abdomen / GI: normal bowel sounds, non tender, soft Extremities: no calf tenderness, no pedal edema, + pertinent finding (RLE wrapped in AUDIE, elevated with pillow. Sensation to light touch diminished but improving. ) Neurologic/Psychiatric: alert, normal mood/affect, oriented x 3 Skin: normal color, warm/dry (Chitra Hope, SARA) Hospital Course H&P per Luisito Khanna MD. HPI: Source: patient, custodial 76 y/o morbidly obese female w/Hx, seizures, HTN, MILAGRO, severe osteoarthritis, questionable history of CHF- The pt is wheelchair bound and requires assistance transferring. She presents with LLE pain which occurred when she was helped up and put weight on her extremity. She denies having fallen. Imaging obtained in the ER shows a mid tibial dislocated, fragmented fracture. She denies SOB, CP, N/V, or dysuria. PE: General Appearance: WD/WN, no apparent distress Head: normocephalic, atraumatic Eyes: normal inspection ENT: pharynx normal Neck: supple, no JVD Respiratory/Chest: chest non-tender, lungs clear, normal breath sounds, no respiratory distress, no accessory muscle use Cardiovascular: regular rate, rhythm, no gallop, no JVD, + systolic murmur ( mild sysolic murmrur) Abdomen/GI: normal bowel sounds, non tender, soft Back: normal inspection, no CVA tenderness, no muscle spasm, normal range of motion Extremities/Musculoskelatal: normal inspection, no calf tenderness, normal capillary refill, no pedal edema, normal range of motion 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 Pt denies falling and states that she put all of her weight on her RLE just prior to the fracture. The pt is wheelchair bound and requires assistance transferring. Pt is s/p tibial fracture fixation with intramedullary nail by orthopedics on 05/05/16. Tibial fracture - POD #2 of Included intramedullary rodding right tibia locked proximally and distally by Dr. Dutton 05/05/16 - Pain management with oxycodone 5 mg Q4h prn - pt has required this during the day so will give rx upon discharge. - Anticoagulation with ASA 325 mg daily - Continue PT/OT upon discharge for strengthening and maximal functionality - Bowel regimen with dulcolax, senna, MOM prn - a dulcolax suppository produced large formed bowel movement. Continue with daily dulcolax 5 mg PO twice daily once discharged since will continue on narcotics for short term pain relief. - Remove fuentes catheter today, voided JO ANN/Dehydration--resolved- Baseline creatinine WNL, around 0.8 - Creatinine elevated at 1.3 upon arrival - Cr. today is 0.79. Continue to encourage oral hydration. - Restarted Furosemide yesterday - Restart losartan today for elevated BPs Seizures--stable -Continue Tegretol 300 mg PO BID, Lamictal 300 mg PO q12h, and Keppra 1000 mg PO BID HTN--stable - Restart losartan - Consider echocardiogram as outpatient to determine if there is a component of CHF. This had been previously noted in the chart although not documented during this admission. Last Echo was completed in 1999 without any abnormalities or dysfunction. DVT prophylaxis - Hold chemical prophylaxis for now due to surgery - will ask ortho to determine when and if they'd like to restart chemical anticoagulation. -SATISH sandoval and SCDs in LLE only Code Status: Full Code Disposition: From [facility], return today Total Time Spent: Greater than 30 minutes This includes examination of the patient, discharge planning, medication reconciliation, and communication with other providers. (Chitra Hope PA-C) Discharge Instructions Please refer to the electronic Patient Visit Report (Discharge Instructions) for additional information. (Chitra Hope PA-C) Follow-Up Follow up with your Primary Care Provider at [facility] within 24-48 hours upon arrival there. Follow up with orthopedics, Dr. Dutton, within 2 weeks. (Chitra Hope PA-C) Reviewed: Pt Seen/Exam by Me (Cathleen Norris DO) History Pt with pain related to post-op status, but stable. No SOB or chest pain. She had a large bowel movement just prior to my arrival. Tolerating PO without issue. Anxious to get back to [facility]. Agree with HPI/ROS as noted. (Cathleen Norris DO) Comments General Appearance: no apparent distress, obese Respiratory: normal breath sounds, no respiratory distress Cardiovascular: normal peripheral pulses, regular rate, rhythm Gastrointestinal: non tender, soft Extremities: non-tender, no pedal edema Neurologic/Psychiatric: alert, much more pleasant today--reciting poems that she wrote Skin Characteristics: normal color, warm/dry (Norris, Cathleen A., DO) Assessment/Plan Agree with plan as outlined above Pt with likely osteoporotic fracture that occurred after attempt at weight bearing. Pt is to be nonweightbearing at baseline Initially tried to manage with cast, however this was deemed less suitable and pt is s/p OR on 05/05 Pt preference to return to [facility] rather than inpt rehab with [facility] (Cathleen Norris, DO)
[2016-05-07 14:08] VITALS: BP 143/70; PULSE 72; TEMP 36.6; O2SAT 96
[2016-05-07] MEDS: HYDROmorphone INJ 1 MG/ML SYR IV PRN (14:16)
== END 2016-05-07 16:10 | DRG 493 ==
LOC: ENRESERVDT → ENRESERVTM → EDBD 23:06 → C.EDC 23:07 → EDBEDREQ 05-04 03:58 → C.MSN 05-04 04:06 → C.2T 05-05 17:49 → C.MSW 05-06 11:30
PROVIDERS: ADMIT Internal Medicine; ATTEND Family Medicine
PROC: 0QSG06Z Reposition Right Tibia with Intramedullary Internal Fixation Device, Open Approach (ICD-10-PCS; principal; 2016-05-05 11:30)
DX: S82.141A Displaced bicondylar fracture of right tibia, initial encounter for closed fracture (principal); N17.9 Acute kidney failure, unspecified; Z68.41 Body mass index [BMI] 40.0-44.9, adult; E66.01 Morbid (severe) obesity due to excess calories; G47.33 Obstructive sleep apnea (adult) (pediatric); M19.011 Primary osteoarthritis, right shoulder; G40.909 Epilepsy, unspecified, not intractable, without status epilepticus; F32.9 Major depressive disorder, single episode, unspecified; K21.9 Gastro-esophageal reflux disease without esophagitis; M17.10 Unilateral primary osteoarthritis, unspecified knee; M19.079 Primary osteoarthritis, unspecified ankle and foot; I50.9 Heart failure, unspecified; I11.0 Hypertensive heart disease with heart failure; Z99.3 Dependence on wheelchair; E86.0 Dehydration; M81.0 Age-related osteoporosis without current pathological fracture; W19.XXXA Unspecified fall, initial encounter

== ENCOUNTER → 2016-06-06 | Outpatient (CLI) | payer OTHER ==
[~2016-06-06] MED LIST changes: +ARTISOL12 OPB; +ASPI325T45 PO; +BISA-16 PO; +BISA1TAB15 PO; +CEFD300C2 PO; +CEFT1INJ57 IM; -CITA10TA4 PO; +IPRASOL4 INH; +LEVE100021 PO; +LVQ500 PO; +MOMLX PO; +POTA20TA13 PO; +PROPDRO5 OPB; +SODIENE PR; +vancomycin IV
== END ==
LOC: C.LABCC 17:34
PROVIDERS: ATTEND Internal Medicine
DX: R56.9 Unspecified convulsions (principal)

== ENCOUNTER → 2016-06-11 | Outpatient (CLI) | payer OTHER ==
[~2016-06-11] MED LIST changes: -BISA1TAB15 PO
[2016-06-11 08:09] LABS: BASO % 0.7 %; BASO ABS # 0.04 K/uL (0-0.2); COMPLETE YES; EOS % 5.5 %; HEMATOCRIT 30.5 % (37-47); IG% 0.3 %; LYMPH % 16.4 %; LYMPH ABS # 0.95 K/uL (1.2-3.4); MEAN CORPUSCULAR HEMOGLOBIN 32.1 pg (25-34); MEAN CORPUSCULAR HGB CONC 33.8 g/dl (32-36); MEAN PLATELET VOLUME 9.2 fL (7.4-10.4); MONO % 16.1 %; PLATELET COUNT 287 K/uL (130-400); RED BLOOD COUNT 3.21 M/uL (4.2-5.4); WHITE BLOOD COUNT 5.79 K/uL (4.8-10.8)
[2016-06-11 08:18] LABS: ALT/SGPT 15 U/L (12-78); BLOOD UREA NITROGEN 19 mg/dl (7-18); BUN/CREATININE RATIO 22.8 (10-20); CALCIUM 8.8 mg/dl (8.5-10.1); CARBON DIOXIDE 27 mmol/L (21-32); CHLORIDE 94 mmol/L (98-107); CREATININE 0.85 mg/dl (0.60-1.20); GLUCOSE 98 mg/dl (70-99); POTASSIUM 3.9 mmol/L (3.5-5.1); SODIUM 131 mmol/L (136-145)
[2016-06-11 08:20] LABS: ALB/GLOB RATIO 0.7 (0.9-2); ALKALINE PHOSPHATASE 192 U/L (45-117); AST/SGOT 16 U/L (15-37)
== END ==
LOC: C.LABCC 07:45
PROVIDERS: ATTEND Internal Medicine
DX: R53.83 Other fatigue (principal)

== ENCOUNTER → 2016-06-19 | Outpatient (CLI) | payer OTHER ==
[2016-06-19 08:30] LABS: BLOOD UREA NITROGEN 17 mg/dl (7-18); GLUCOSE 106 mg/dl (70-99)
[2016-06-19 08:31] LABS: BUN/CREATININE RATIO 15.1 (10-20); CALCIUM 8.9 mg/dl (8.5-10.1); CARBON DIOXIDE 28 mmol/L (21-32); CHLORIDE 93 mmol/L (98-107); POTASSIUM 4.2 mmol/L (3.5-5.1); SODIUM 131 mmol/L (136-145)
== END ==
LOC: C.LABCC 07:53
PROVIDERS: ATTEND Internal Medicine
DX: E87.1 Hypo-osmolality and hyponatremia (principal)

== ENCOUNTER → 2016-07-04 | Outpatient (CLI) | payer OTHER ==
[2016-07-04 09:11] LABS: BLOOD UREA NITROGEN 21 mg/dl (7-18); BUN/CREATININE RATIO 19.2 (10-20); CALCIUM 8.9 mg/dl (8.5-10.1); CARBON DIOXIDE 29 mmol/L (21-32); CHLORIDE 96 mmol/L (98-107); GLUCOSE 91 mg/dl (70-99); POTASSIUM 4.6 mmol/L (3.5-5.1); SODIUM 132 mmol/L (136-145)
== END ==
LOC: C.LABCC 08:37
PROVIDERS: ATTEND Internal Medicine
DX: E87.1 Hypo-osmolality and hyponatremia (principal)

== ENCOUNTER 2016-07-07 19:00 | Inpatient (IN) | payer OTHER ==
[~2016-07-07] VITALS: Ht 160 cm; Wt 100.5 kg
[~2016-07-07 19:00] MED LIST changes: -ARTISOL12 OPB; -ASPI325T45 PO; -BISA-16 PO; -CEFD300C2 PO; -CEFT1INJ57 IM; -IPRASOL4 INH; -LEVE100021 PO; -LVQ500 PO; -MOMLX PO; -POTA20TA13 PO; -PROPDRO5 OPB; -SODIENE PR; -vancomycin IV
--- NOTE | 2016-07-07 19:20 | EMERGENCY ROOM VISIT NOTE ---
History Report prepared by Radha: Juan Ivey Under the Supervision of: Dr. Juan José Leon D.O. First contact with patient: 19:01 Stated Complaint: SEIZURE, AMS History of Present Illness The patient is a 76 year old female who presents to the Emergency Room from [facility] via BLS with complaints of altered mental status starting today. The patient had a seizure about 9 hours ago. She has been unresponsive and nonresponsive since then. The patient was referred to the Emergency Room by the on-call physician at [facility]. She was recently diagnosed with a UTI. She had a temperature of 100 degrees Fahrenheit today. The patient currently denies any pain. HPI is limited secondary to altered mental status. Additional history is obtained as per EMS. Source of History: patient, EMS History Limited By: AMS Onset: today Position: other (global) Symptom Intensity: No pain currently Quality: other (altered mental status) Associated Symptoms: + fevers (100 degrees Fahrenheit) Review of Systems ROS is limited secondary to altered mental status. Past Medical & Surgical Medical Problems: (1) Abdom Aortic Aneurysm (2) Altered mental state (3) Depressive Disorder Nec (4) Esophageal Reflux (5) Fibula fracture (6) Hypertension Nos (7) SIRS (systemic inflammatory response syndrome) (8) UTI (urinary tract infection) Family History Omitted secondary to age Social History Smoking Status: Never Smoker Alcohol Use: none Drug Use: none Housing Status: long term Occupation Status: retired Current/Historical Medications Scheduled Aspirin (Aspirin), 325 MG PO QAM Bisacodyl (Dulcolax), 1 SUPP [place] PRN Bisacodyl (Dulcolax), 5 MG PO BID Carbamazepine (Carbamazepine), 300 MG PO BID Cholecalciferol (Vitamin D3), 1,000 UNITS PO DAILY Furosemide (Lasix), 60 MG PO DAILY Lamotrigine (Lamictal), 300 MG PO Q12 Levetiracetam (Levetiracetam), 1,000 MG PO BID Losartan Potassium (Cozaar), 25 MG PO DAILY Oxycodone Hcl (Oxycodone Hcl), 10 MG PO HS Propylene Glycol-Glycerin (Artificial Tears), 1 DROP OPB QID Prune Juice (Prune Juice ), OZ PO PRN UD Ranitidine HCl (Ranitidine HCl), 150 MG PO HS Senna (Senokot), 8.6 MG PO DAILY Scheduled PRN Acetaminophen (Tylenol), 650 MG PO Q6H PRN for Pain or Fever Hydrocodone/Acetaminophen 5MG/325MG ([place] 5MG/325MG), 1 TABLET PO Q4 PRN for MOD PAIN Magnesium Hydroxide (Milk of Magnesia), 30 ML PO DAILY PRN for NO BM FOR 3 DAYS Allergies Coded Allergies: No Known Allergies (Verified , 07/07/16) Physical Exam Vital Signs Date Time Temp Pulse Resp B/P Pulse Ox O2 Delivery O2 Flow Rate FiO2 07/07/16 22:30 66 24 125/63 96 07/07/16 22:15 20 123/60 99 Nasal Cannula 2.0 07/07/16 21:30 72 108/63 95 07/07/16 21:00 75 121/75 97 07/07/16 20:23 78 20 125/68 07/07/16 19:30 37.4 80 22 97/54 90 Room Air 07/07/16 19:30 90 Room Air 07/07/16 19:15 88 Physical Exam GENERAL: Patient is listless, responds to loud verbal stimuli but quickly goes back to sleep. EYES: The conjunctivae are clear. The pupils are round and reactive. EARS, NOSE, MOUTH AND THROAT: The nose is without any evidence of any deformity. Mucous membranes are dry tongue is midline NECK: The neck is nontender and supple. RESPIRATORY: Tachypnea noted with shallow respirations, diminished breath sounds noted throughout. CARDIOVASCULAR: Regular rate and rhythm, systolic murmur noted over the precordium. GASTROINTESTINAL: The abdomen is soft. Bowel sounds are present in all quadrants. Abdomen is nontender MUSCULOSKELETAL/EXTREMITIES: There is no evidence of gross deformity full range of motion is noted in the hips and shoulders SKIN: There is no obvious evidence of any rash. There are no petechiae, pallor or cyanosis noted. Pedal edema bilaterally. NEUROLOGIC: Patient awakes to loud verbal stimuli and answers questions, oriented to person and place. Strength is symmetric. Medical Decision & Procedures ER Provider Diagnostic Interpretation: X-ray results as stated below per interpretation by me and the radiologist. CHEST ONE VIEW PORTABLE CLINICAL HISTORY: Sepsis dyspnea COMPARISON STUDY: 05/05/2016 FINDINGS: The bones soft tissues and hemidiaphragms are normal. The cardiomediastinal silhouette is normal. The lungs are clear. The pulmonary vasculature is normal. IMPRESSION: Negative chest. Electronically signed by: Hai Cisneros M.D. 07/07/2016 7:40 PM Dictated Date/Time: 07/07/2016 7:[address] results as stated below per my review and radiologist interpretation. HEAD CT NONCONTRAST CT DOSE: 2174.50 mGy.cm HISTORY: Mental status change altered MS TECHNIQUE: Multiaxial CT images of the head were performed without the use of intravenous contrast. Comparison: 08/31/2015 Findings: The paranasal sinuses and mastoid air cells are clear. Compromised exam due to patient somatic motion. Mild age-related chronic small vessel and atrophic change. No acute intracranial abnormality. No evidence for acute intracranial hemorrhage. Impression: Age-related change. No acute process. Compromised exam due to patient motion. Electronically signed by: Hai Cisneros M.D. 07/07/2016 8:01 PM Dictated Date/Time: 07/07/2016 8:00 PM Laboratory Results Test 07/07/16 19:12 07/07/16 19:18 07/07/16 19:20 07/07/16 20:18 Erythrocyte Sedimentation Rate 66 mm/hr (0-21) Phosphorus Level 2.8 mg/dl (2.5-4.9) Total Bilirubin 0.4 mg/dl (0.2-1) Aspartate Amino Transf (AST/SGOT) 22 U/L (15-37) Alanine Aminotransferase (ALT/SGPT) 15 U/L (12-78) Alkaline Phosphatase 137 U/L (45-117) C-Reactive Protein 13.60 mg/dl (0-0.29) Pro-B-Type Natriuretic Peptide 17601 pg/ml (0-900) Total Protein 8.0 gm/dl (6.4-8.2) Albumin 3.4 gm/dl (3.4-5.0) Globulin 4.6 gm/dl (2.5-4.0) Albumin/Globulin Ratio 0.7 (0.9-2) Lipase 64 U/L (73-393) Bedside Lactic Acid Venous 1.10 mmol/L (0.90-1.70) Urine Color RED Urine Appearance CLOUDY (CLEAR) Urine pH 5.0 (4.5-7.5) Urine Specific [place] 1.015 (1.000-1.030) Urine Protein 3+ (NEG) Urine Glucose (UA) NEG (NEG) Urine Ketones NEG (NEG) Urine Occult Blood 3+ (NEG) Urine Nitrite POS (NEG) Urine Bilirubin NEG (NEG) Urine Urobilinogen NEG (NEG) Urine Leukocyte Esterase MODERATE (NEG) Urine WBC (Auto) >30 /hpf (0-5) Urine RBC (Auto) >30 /hpf (0-4) Urine Hyaline Casts (Auto) 0 /lpf (0-5) Urine Epithelial Cells (Auto) 20-30 /lpf (0-5) Urine Bacteria (Auto) NEG (NEG) Urine Pathogenic Casts See comments /lpf (0) Venous Blood pH 7.39 (7.36-7.41) Venous Blood Partial Pressure CO2 48 mmHg (38.0-50.0) Venous Blood Partial Pressure O2 34 mmHg Venous Blood HCO3 28 meq/L Venous Blood Oxygen Saturation < 60.0 % Venous Blood Base Excess 2.7 mmol/L Laboratory results per my review. Medications Administered Medications (Trade) Dose Ordered Sig/Regla Route Start Time Stop Time Status Last Admin Dose Admin Levofloxacin 750 mg 750 mg NOW STAT IV 07/07/16 21:09 07/07/16 21:10 DC 07/07/16 21:43 750 MG Sodium Chloride (Nss 1000ml) 1,000 ml @ 999 mls/hr Q1H1M STAT IV 07/07/16 21:10 07/07/16 22:10 DC 07/07/16 21:43 999 MLS/HR ECG Indication: altered mental status Rate (beats per minute): 89 Rhythm: normal sinus Findings: no ectopy, other (Anterior ST segment abnormality) Comparison ECG Date: May 04, 2016 Change: Rate has increased otherwise no change when compared to May 04, 2016. ED Course 1900: The patient was evaluated in room C12B. A complete history and physical examination were performed. 2108: Levofloxacin 750 mg IV 2109: Sodium Chloride 1000 ml @ 999 mls/hr IV 2151: Upon reevaluation, the patient is resting comfortably.[facility] The patient will be evaluated for further management and care. Medical Decision Prior records/ancillary studies reviewed and summarized above. Nursing notes reviewed. Additional history obtained from EMS. The patient's history was concerning for altered mental status. Differential diagnosis: Etiologies such as metabolic, infection, hypoglycemia, electrolyte abnormalities , cardiac sources, intracerebral event, toxicologic, neurologic, as well as others were entertained. The patient is a 76-year-old female who presented to the emergency department for an evaluation of possible seizure. The patient was found have hypotension as well as rigors upon arrival to the emergency department. Her overall condition appear to be very consistent with sepsis. She was treated with IV fluids and IV antibiotics. IV fluids were not aggressively given because the patient has pulmonary edema as well. The patient's case was [facility] The patient is a no code and I'm unsure how far the patient's family or the patient would want to go with this condition. I did review the patient's previous electronic medical records. She appears to have a very complicated past medical history with multiple comorbidities. Consults Time Called: 2135 Consulting Physician: Dr. Monaco [facility] Returned Call: [address] [facility]. Impression Primary Impression: Sepsis Additional Impressions: UTI (urinary tract infection) Altered mental status Elevated troponin Dehydration Acute kidney injury Scribe Attestation The scribe's documentation has been prepared under my direction and personally reviewed by me in its entirety. I confirm that the note above accurately reflects all work, treatment, procedures, and medical decision making performed by me. Departure Information Dispostion Being Evaluated By Hospitalist Referrals [facility] (PCP) Problem Qualifiers Primary Impression: Sepsis Sepsis type: sepsis due to unspecified organism Qualified Codes: A41.9 - Sepsis, unspecified organism Additional Impressions: UTI (urinary tract infection) Urinary tract infection type: acute pyelonephritis Qualified Codes: N10 - Acute pyelonephritis Altered mental status Altered mental status type: unspecified Qualified Codes: R41.82 - Altered mental status, unspecified
--- NOTE | 2016-07-07 19:42 | DIAGNOSTIC IMAGING REPORT ---
CHEST ONE VIEW PORTABLE CLINICAL HISTORY: Sepsis dyspnea COMPARISON STUDY: 05/05/2016 FINDINGS: The bones soft tissues and hemidiaphragms are normal. The cardiomediastinal silhouette is normal. The lungs are clear. The pulmonary vasculature is normal. IMPRESSION: Negative chest. Electronically signed by: Hai Cisneros M.D. 07/07/2016 7:40 PM Dictated Date/Time: 07/07/2016 7:40 PM
--- NOTE | 2016-07-07 20:03 | DIAGNOSTIC IMAGING REPORT ---
HEAD CT NONCONTRAST CT DOSE: 2174.50 mGy.cm HISTORY: Mental status change altered MS TECHNIQUE: Multiaxial CT images of the head were performed without the use of intravenous contrast. Comparison: 08/31/2015 Findings: The paranasal sinuses and mastoid air cells are clear. Compromised exam due to patient somatic motion. Mild age-related chronic small vessel and atrophic change. No acute intracranial abnormality. No evidence for acute intracranial hemorrhage. Impression: Age-related change. No acute process. Compromised exam due to patient motion. Electronically signed by: Hai Cisneros M.D. 07/07/2016 8:01 PM Dictated Date/Time: 07/07/2016 8:00 PM
[2016-07-07 20:21] LABS: BASO % 0.1 %; BASO ABS # 0.01 K/uL (0-0.2); COMPLETE YES; HEMATOCRIT 31.9 % (37-47); IG% 0.2 %; LYMPH % 4.5 %; LYMPH ABS # 0.58 K/uL (1.2-3.4); MEAN CELL VOLUME 90.4 fL (80-100); MEAN CORPUSCULAR HEMOGLOBIN 30.6 pg (25-34); MEAN CORPUSCULAR HGB CONC 33.9 g/dl (32-36); MEAN PLATELET VOLUME 9.2 fL (7.4-10.4); MONO % 6.8 %; NEUT % 88.4 %; PLATELET COUNT 261 K/uL (130-400); RED BLOOD COUNT 3.53 M/uL (4.2-5.4); WHITE BLOOD COUNT 12.84 K/uL (4.8-10.8)
[2016-07-07 20:28] LABS: URINE APPEARANCE CLOUDY (CLEAR); URINE BILIRUBIN NEG (NEG); URINE COLOR RED; URINE EPITHELIAL CELL AUTO 20-30 /lpf (0-5); URINE NITRITE POS (NEG); URINE SPECIFIC GRAVITY 1.015 (1.000-1.030); UROBILINOGEN NEG (NEG); ZZURINE CULT IF INDIC CATH YES
[2016-07-07 20:32] LABS: ALT/SGPT 15 U/L (12-78); BLOOD UREA NITROGEN 36 mg/dl (7-18); BUN/CREATININE RATIO 16.3 (10-20); CALCIUM 8.3 mg/dl (8.5-10.1); CARBON DIOXIDE 26 mmol/L (21-32); CHLORIDE 94 mmol/L (98-107); GLUCOSE 142 mg/dl (70-99); MAGNESIUM 2.3 mg/dl (1.8-2.4); POTASSIUM 3.8 mmol/L (3.5-5.1); SODIUM 131 mmol/L (136-145)
[2016-07-07 20:33] LABS: VENOUS BLOOD GAS PCO2 48 mmHg (38.0-50.0); VENOUS BLOOD GAS PO2 34 mmHg
[2016-07-07 20:34] LABS: VEN BLD GAS O2 SATURATION < 60.0 %; VEN BLOOD GAS BASE EXCESS 2.7 mmol/L
[2016-07-07 20:35] LABS: MANUAL MICROSCOPIC REQUIRED? NO; REVIEW REQ? YES
[2016-07-07 20:36] LABS: INR 1.1 (0.9-1.1); PARTIAL THROMBOPLASTIN RATIO 1.2; PROTHROMBIN TIME (PATIENT) 11.4 SECONDS (9.0-12.0)
[2016-07-07 20:37] LABS: ALB/GLOB RATIO 0.7 (0.9-2); ALKALINE PHOSPHATASE 137 U/L (45-117); AST/SGOT 22 U/L (15-37); PHOSPHORUS 2.8 mg/dl (2.5-4.9)
[2016-07-07] MEDS ORDERED: LEVAQUIN 750MG / 150ML D5W IV STA (21:09)
[2016-07-07] MEDS ORDERED: SODIUM CHLORIDE 0.9% 1000ML 1,000 ML IV STA (21:10)
[2016-07-07] MEDS ORDERED: BISA-16 PO (22:01)
[2016-07-07] MEDS ORDERED: PROPDRO5 OPB (22:01)
[2016-07-07] MEDS ORDERED: ASPI325T45 PO (22:01)
[2016-07-07] MEDS ORDERED: LEVE100021 PO (22:02)
[2016-07-07] MEDS ORDERED: MOMLX PO (22:02)
--- NOTE | 2016-07-07 22:11 | History and Physical ---
History & Physical Date & Time of Service: Jul 07, 2016 at 22:11 Chief Complaint: Seizure, Ams Primary Care Physician: Edi Love History of Present Illness Source: patient, clinic records, hospital records The patient is a 76-year-old female resident of [place] brought to the emergency Department via BLS due to altered mental status. Nursing staff did report she had a seizure about 9 hours prior to arrival has been unresponsive since that time. She had been recently diagnosed with UTI and a temperature of 100F today. Her history of present illness is otherwise limited due to her nonresponsive state. Past Medical/Surgical History Medical Problems: (1) Abdom Aortic Aneurysm Status: Chronic (2) Depressive Disorder Nec Status: Chronic (3) Esophageal Reflux Status: Chronic (4) Hypertension Nos Status: Chronic Family History Omitted secondary to age Social History Smoking Status: Unknown if Ever Smoked Smokeless Tobacco Use: No Alcohol Use: none Drug Use: none Housing status: skilled nursing Occupational Status: retired Immunizations History of Influenza Vaccine: Unknown History of Tetanus Vaccine?: Unknown History of Pneumococcal: Unknown History of Hepatitis B Vaccine: Unknown Multi-Drug Resistant Organisms History of MDRO: Yes Type of MDRO: MRSA Allergies Coded Allergies: No Known Allergies (Verified , 07/07/16) Home Medications Scheduled Aspirin (Aspirin), 325 MG PO QAM Bisacodyl (Dulcolax), 1 SUPP RI PRN Bisacodyl (Dulcolax), 5 MG PO BID Carbamazepine (Carbamazepine), 300 MG PO BID Cholecalciferol (Vitamin D3), 1,000 UNITS PO DAILY Furosemide (Lasix), 60 MG PO DAILY Lamotrigine (Lamictal), 300 MG PO Q12 Levetiracetam (Levetiracetam), 1,000 MG PO BID Losartan Potassium (Cozaar), 25 MG PO DAILY Oxycodone Hcl (Oxycodone Hcl), 10 MG PO HS Propylene Glycol-Glycerin (Artificial Tears), 1 DROP OPB QID Prune Juice (Prune Juice ), OZ PO PRN UD Ranitidine HCl (Ranitidine HCl), 150 MG PO HS Senna (Senokot), 8.6 MG PO DAILY Scheduled PRN Acetaminophen (Tylenol), 650 MG PO Q6H PRN for Pain or Fever Hydrocodone/Acetaminophen 5MG/325MG (Excel 5MG/325MG), 1 TABLET PO Q4 PRN for MOD PAIN Magnesium Hydroxide (Milk of Magnesia), 30 ML PO DAILY PRN for NO BM FOR 3 DAYS Review of Systems Review of systems is limited due to her unresponsive state. Physical Exam Vital Signs Date Time Temp Pulse Resp B/P Pulse Ox O2 Delivery O2 Flow Rate FiO2 07/07/16 20:23 78 20 125/68 07/07/16 19:30 37.4 80 22 97/54 90 Room Air 07/07/16 19:30 90 Room Air 07/07/16 19:15 88 The patient is nonresponsive, normocephalic and atraumatic, lying in bed and in no acute distress. HEENT--PERRL, EOMI, mucous membranes and oropharynx dry. Neck--supple, no JVD or bruits, thyroid normal, trachea midline, no adenopathy. Heart--normal S1 and S2, no extra beats, no murmurs, rubs or gallops. Lungs--diminished throughout, no respiratory distress, no accessory muscle use. Abdomen--normal bowel sounds and soft, nontender and nondistended, no hernias or masses, no organomegaly. Extremities--no cyanosis, clubbing or edema. There are good distal pulses b/l. Dermatologic--normal skin turgor, normal color, warm and dry, no abnormal lymph nodes, no rash. Neurologic--cranial nerves II through XII grossly intact, motor and sensory examination normal. Rheumatologic--normal range of motion, nontender, muscles and joints. Psychiatric--nonresponsive. Diagnostics Laboratory Results Results Past 24 Hours Test 07/07/16 19:12 07/07/16 19:18 07/07/16 19:20 07/07/16 20:18 Range/Units White Blood Count 12.84 4.8-10.8 K/uL Red Blood Count 3.53 4.2-5.4 M/uL Hemoglobin 10.8 12.0-16.0 g/dL Hematocrit 31.9 37-47 % Mean Corpuscular Volume 90.4 80-100 fL Mean Corpuscular Hemoglobin 30.6 25-34 pg Mean Corpuscular Hemoglobin Concent 33.9 32-36 g/dl Platelet Count 261 130-400 K/uL Mean Platelet Volume 9.2 7.4-10.4 fL Neutrophils (%) (Auto) 88.4 % Lymphocytes (%) (Auto) 4.5 % Monocytes (%) (Auto) 6.8 % Eosinophils (%) (Auto) 0.0 % Basophils (%) (Auto) 0.1 % Neutrophils # (Auto) 11.35 1.4-6.5 K/uL Lymphocytes # (Auto) 0.58 1.2-3.4 K/uL Monocytes # (Auto) 0.87 0.11-0.59 K/uL Eosinophils # (Auto) 0.00 0-0.5 K/uL Basophils # (Auto) 0.01 0-0.2 K/uL RDW Standard Deviation 43.7 36.4-46.3 fL RDW Coefficient of Variation 13.3 11.5-14.5 % Immature Granulocyte % (Auto) 0.2 % Immature Granulocyte # (Auto) 0.03 0.00-0.02 K/uL Erythrocyte Sedimentation Rate 66 0-21 mm/hr Prothrombin Time 11.4 9.0-12.0 SECONDS Prothromb Time International Ratio 1.1 0.9-1.1 Activated Partial Thromboplast Time 31.7 21.0-31.0 SECONDS Partial Thromboplastin Ratio 1.2 Sodium Level 131 136-145 mmol/L Potassium Level 3.8 3.5-5.1 mmol/L Chloride Level 94 98-107 mmol/L Carbon Dioxide Level 26 21-32 mmol/L Anion Gap 11.0 3-11 mmol/L Blood Urea Nitrogen 36 7-18 mg/dl Creatinine 2.20 0.60-1.20 mg/dl Est Creatinine Clear Calc Drug Dose 26.0 ml/min Estimated GFR () 24.8 Estimated GFR (Non- 21.4 BUN/Creatinine Ratio 16.3 10-20 Random Glucose 142 70-99 mg/dl Calcium Level 8.3 8.5-10.1 mg/dl Phosphorus Level 2.8 2.5-4.9 mg/dl Magnesium Level 2.3 1.8-2.4 mg/dl Total Bilirubin 0.4 0.2-1 mg/dl Aspartate Amino Transf (AST/SGOT) 22 15-37 U/L Alanine Aminotransferase (ALT/SGPT) 15 12-78 U/L Alkaline Phosphatase 137 45-117 U/L Total Creatine Kinase 48 26-192 U/L Creatine Kinase MB < 0.5 0.5-3.6 ng/ml Creatine Kinase MB Ratio 0-3.0 Troponin I 0.053 0-0.045 ng/ml C-Reactive Protein 13.60 0-0.29 mg/dl Pro-B-Type Natriuretic Peptide 21525 0-900 pg/ml Total Protein 8.0 6.4-8.2 gm/dl Albumin 3.4 3.4-5.0 gm/dl Globulin 4.6 2.5-4.0 gm/dl Albumin/Globulin Ratio 0.7 0.9-2 Lipase 64 73-393 U/L Carbamazepine (Tegretol) Level 13.1 4-12 mcg/ml Bedside Lactic Acid Venous 1.10 0.90-1.70 mmol/L Urine Color RED Urine Appearance CLOUDY CLEAR Urine pH 5.0 4.5-7.5 Urine Specific [place] 1.015 1.000-1.030 Urine Protein 3+ NEG Urine Glucose (UA) NEG NEG Urine Ketones NEG NEG Urine Occult Blood 3+ NEG Urine Nitrite POS NEG Urine Bilirubin NEG NEG Urine Urobilinogen NEG NEG Urine Leukocyte Esterase MODERATE NEG Urine WBC (Auto) >30 0-5 /hpf Urine RBC (Auto) >30 0-4 /hpf Urine Hyaline Casts (Auto) 0 0-5 /lpf Urine Epithelial Cells (Auto) 20-30 0-5 /lpf Urine Bacteria (Auto) NEG NEG Urine Pathogenic Casts See comments 0 /lpf Venous Blood pH 7.39 7.36-7.41 Venous Blood Partial Pressure CO2 48 38.0-50.0 mmHg Venous Blood Partial Pressure O2 34 mmHg Venous Blood HCO3 28 meq/L Venous Blood Oxygen Saturation < 60.0 % Venous Blood Base Excess 2.7 mmol/L Microbiology Results 07/07/16 Blood Culture, Received Pending 07/07/16 Blood Culture, Received Pending Diagnostic Radiology Patient Name: CHANDRIKA LUO Unit Number: [id number] Dictated: 07/07/161999 Transcribed: 07/07/161999 MS Printed Date/Time: [~ rep prt dt]/[~ rep prt tm] [~ rep ct labl] - [~ rep ct ivnm] [facility] Radiology Department [place] [id number] Dictated: 07/07/161999 Transcribed: 07/07/161999 MS Printed Date/Time: [~ rep prt dt]/[~ rep prt tm] [~ rep ct labl] - [~ rep ct ivnm] HEAD CT NONCONTRAST CT DOSE: 2174.50 mGy.cm HISTORY: Mental status change altered MS TECHNIQUE: Multiaxial CT images of the head were performed without the use of intravenous contrast. Comparison: 08/31/2015 Findings: The paranasal sinuses and mastoid air cells are clear. Compromised exam due to patient somatic motion. Mild age-related chronic small vessel and atrophic change. No acute intracranial abnormality. No evidence for acute intracranial hemorrhage. Impression: Age-related change. No acute process. Compromised exam due to patient motion. Electronically signed by: Hai Cisneros M.D. 07/07/2016 8:01 PM Dictated Date/Time: 07/07/2016 8:00 PM The status of this report is Signed. Draft = Not yet reviewed or approved by Radiologist. Signed = Reviewed and approved by Radiologist. <AttendingPhy></AttendingPhy> <FamilyPhy>[facility]</FamilyPhy> <PrimaryPhy> [facility]</PrimaryPhy> <UnitNumber>[id number]</UnitNumber> <VisitNumber> [id number]</VisitNumber> <PatientName>CHANDRIKA LUO</PatientName> < DateOfBirth>1940</DateOfBirth> <Location>[facility]</Location> <ServiceDate></ServiceDate> <MNE>ESINDI</MNE> <OrderingPhy>Juan José Leon D.O.</ OrderingPhy> <OrderingPhyMNE>f rep ord dr ford</OrderingPhyMNE> <DictatingPhyMNE> f rep dict dr ford</DictatingPhyMNE> <CCListMNE>f rep ct mne</CCListMNE> < AdmittingPhyMNE>f pt admit dr ford</AdmittingPhyMNE> <AttendingPhyMNE>f pt attend dr ford</AttendingPhyMNE> <ConsultingPhyMNE>f pt consult dr ford</ConsultingPhyMNE> <FamilyPhyMNE>f pt fam dr ford</FamilyPhyMNE> <OtherPhyMNE>f pt other dr ford</OtherPhyMNE> < PrimaryPhyMNE>f pt prim care dr ford</PrimaryPhyMNE> <ReferringPhyMNE>f pt referring dr ford</ReferringPhyMNE> Patient Name: CHANDRIKA LUO Unit Number: [id number] Dictated: 07/07/161939 Transcribed: 07/07/161939 MS Printed Date/Time: [~ rep prt dt]/[~ rep prt tm] [~ rep ct labl] - [~ rep ct ivnm] [facility] Radiology Department [place], [place] [id number] Dictated: 07/07/161939 Transcribed: 07/07/161939 MS Printed Date/Time: [~ rep prt dt]/[~ rep prt tm] [~ rep ct labl] - [~ rep ct ivnm] [~ rep ct add3]] CHEST ONE VIEW PORTABLE CLINICAL HISTORY: Sepsis dyspnea COMPARISON STUDY: 05/05/2016 FINDINGS: The bones soft tissues and hemidiaphragms are normal. The cardiomediastinal silhouette is normal. The lungs are clear. The pulmonary vasculature is normal. IMPRESSION: Negative chest. Electronically signed by: Hai Cisneros M.D. 07/07/2016 7:40 PM Dictated Date/Time: 07/07/2016 7:40 PM The status of this report is Signed. Draft = Not yet reviewed or approved by Radiologist. Signed = Reviewed and approved by Radiologist. <AttendingPhy></AttendingPhy> <FamilyPhy>[facility]</FamilyPhy> <PrimaryPhy> [facility]</PrimaryPhy> <UnitNumber>[id number]</UnitNumber> <VisitNumber> [id number]</VisitNumber> <PatientName>CHANDRIKA LUO</PatientName> < DateOfBirth>1940</DateOfBirth> <Location>[facility]</Location> <ServiceDate></ServiceDate> <MNE>ESINDI</MNE> <OrderingPhy>Edward, Juan José R. D.O.</ OrderingPhy> <OrderingPhyMNE>f rep ord dr ford</OrderingPhyMNE> <DictatingPhyMNE> f rep dict dr ford</DictatingPhyMNE> <CCListMNE>f rep ct jarochoe</CCListMNE> < AdmittingPhyMNE>f pt admit dr ford</AdmittingPhyMNE> <AttendingPhyMNE>f pt attend dr ford</AttendingPhyMNE> <ConsultingPhyMNE>f pt consult dr ford</ConsultingPhyMNE> <FamilyPhyMNE>f pt fam dr ford</FamilyPhyMNE> <OtherPhyMNE>f pt other dr ford</OtherPhyMNE> < PrimaryPhyMNE>f pt prim care dr ford</PrimaryPhyMNE> <ReferringPhyMNE>f pt referring dr ford</ReferringPhyMNE> EKG EKG shows normal sinus rhythm at 89 bpm, left axis deviation, baseline noise, no acute ST-T changes. Impression Assessment and Plan Nonresponsive state post seizure 9 hours prior to arrival-the patient will be admitted to the hospital for neuro checks. We changed to Keppra 1000 mg by mouth twice a day to 1000 mg IV twice a day. We will hold lamotrigine 200 mg by mouth every 12 hours and carbamazepine 300 mg by mouth twice a day do to nonresponsive state. She primarily appears Dehydrated at this point, and well treat her conservatively with IV fluids and follow her response. She does not appear to have aspirated, and has no other signs of active infection. CAD/hypertension/chronic renal insufficiency--troponin mildly elevated 0.053. We'll admit to telemetry unit for serial cardiac enzymes, and cardiac rhythm monitoring. She will continue to be nothing by mouth at this time and we'll hold aspirin 325 mg by mouth every morning, furosemide 60 mg by mouth daily, and losartan potassium 25 mg by mouth daily. We'll gently hydrate with IV fluids. GERD--change ranitidine 150 mg by mouth at bedtime to Pantoprazole 40 mg IV daily. Disposition--family for patient to return to [facility]. She is a level V DNR. Level of Care Telemetry Advanced Directives Existing Advance Directive: No Existing Living Will: No Existing Power of Emergency Service Restorer: No Resuscitation Status FULL RESUSCITATION VTE Prophylaxis Given or contraindicated: SCD's Social Service Consult Lives in Detention
[2016-07-07] MEDS ORDERED: ONDANSETRON INJ 2 MG/ML 2 ML VIAL IV PRN (23:30)
[2016-07-08] VITALS (11 sets, daily range): BP systolic 127–212; BP diastolic 63–91; PULSE 62–94; TEMP 37–39.3; O2SAT 92–99; Ht 160 cm; Wt 100.5 kg
[2016-07-08] MEDS: SODIUM CHLORIDE 0.9% 1000ML 1,000 ML IV SCH ×3 (00:38→20:20)
[2016-07-08 01:55] LABS: CKMB/CK RATIO 1.9 (0-3.0)
[2016-07-08] MEDS ORDERED: ALBUTEROL HFA 8 GM INHALER INH STA (04:52)
[2016-07-08] MEDS: ACETAMINOPHEN SOLN 650MG/20.3 ML UDC PO PRN ×2 (04:57→15:43)
[2016-07-08 07:33] LABS: BASO % 0.1 %; BASO ABS # 0.01 K/uL (0-0.2); COMPLETE YES; HEMATOCRIT 26.9 % (37-47); IG% 0.2 %; LYMPH % 3.3 %; LYMPH ABS # 0.32 K/uL (1.2-3.4); MEAN CELL VOLUME 92.8 fL (80-100); MEAN CORPUSCULAR HGB CONC 33.5 g/dl (32-36); MEAN PLATELET VOLUME 8.7 fL (7.4-10.4); MONO % 8.2 %; NEUT % 88.2 %; PLATELET COUNT 172 K/uL (130-400); WHITE BLOOD COUNT 9.67 K/uL (4.8-10.8)
[2016-07-08 07:57] LABS: INR 1.1 (0.9-1.1); PARTIAL THROMBOPLASTIN RATIO 1.3; PROTHROMBIN TIME (PATIENT) 11.9 SECONDS (9.0-12.0)
[2016-07-08 08:05] LABS: BUN/CREATININE RATIO 20.6 (10-20); CALCIUM 7.7 mg/dl (8.5-10.1); CREATININE 1.8 mg/dl (0.60-1.20); MAGNESIUM 2.3 mg/dl (1.8-2.4); POTASSIUM 3.4 mmol/L (3.5-5.1)
[2016-07-08 08:20] LABS: CKMB/CK RATIO 1.6 (0-3.0)
--- NOTE | 2016-07-08 08:30 | Progress Note ---
Subjective Date of Service: Jul 08, 2016. Subjective Pt evaluation today including: conversation w/ patient, chart review Voiding: fuentes catheter in place No complaints. Denies CP, SOB, Problem List Medical Problems: (1) Acute kidney injury Status: Acute (2) Altered mental status Status: Acute (3) Altered mental status Status: Acute (4) Dehydration Status: Acute (5) Elevated troponin Status: Acute (6) Fever Status: Acute (7) Seizure Status: Acute (8) Sepsis Status: Acute (9) Sepsis Status: Acute (10) Tibial fracture Status: Acute (11) UTI (urinary tract infection) Status: Acute Objective Vital Signs Date Time Temp Pulse Resp B/P Pulse Ox O2 Delivery O2 Flow Rate FiO2 07/08/16 04:00 Nasal Cannula 2.0 07/08/16 03:27 38.4 91 23 131/74 97 Nasal Cannula 2.0 07/08/16 00:50 37.2 82 22 130/70 98 Nasal Cannula 3.0 07/07/16 23:53 68 20 124/82 97 07/07/16 23:29 67 07/07/16 22:30 66 24 125/63 96 07/07/16 22:15 20 123/60 99 Nasal Cannula 2.0 07/07/16 21:30 72 108/63 95 07/07/16 21:00 75 121/75 97 07/07/16 20:23 78 20 125/68 07/07/16 19:30 37.4 80 22 97/54 90 Room Air 07/07/16 19:30 90 Room Air 07/07/16 19:15 88 Physical Exam General Appearance: WD/WN, no apparent distress Eyes: normal inspection, PERRL ENT: normal ENT inspection, hearing grossly normal Neck: supple, no adenopathy Respiratory/Chest: chest non-tender, lungs clear, normal breath sounds Cardiovascular: regular rate, rhythm, no edema Abdomen: normal bowel sounds, non tender Extremities: normal range of motion, non-tender Neurologic/Psychiatric: van driver helper II-XII nml as tested, no motor/sensory deficits Skin: + pertinent finding (right heel wound in dressing) Lymphatic: no adenopathy Laboratory Results Last 24 Hours Test 07/07/16 19:12 07/07/16 19:18 07/07/16 19:20 07/07/16 20:18 White Blood Count 12.84 K/uL Red Blood Count 3.53 M/uL Hemoglobin 10.8 g/dL Hematocrit 31.9 % Mean Corpuscular Volume 90.4 fL Mean Corpuscular Hemoglobin 30.6 pg Mean Corpuscular Hemoglobin Concent 33.9 g/dl Platelet Count 261 K/uL Mean Platelet Volume 9.2 fL Neutrophils (%) (Auto) 88.4 % Lymphocytes (%) (Auto) 4.5 % Monocytes (%) (Auto) 6.8 % Eosinophils (%) (Auto) 0.0 % Basophils (%) (Auto) 0.1 % Neutrophils # (Auto) 11.35 K/uL Lymphocytes # (Auto) 0.58 K/uL Monocytes # (Auto) 0.87 K/uL Eosinophils # (Auto) 0.00 K/uL Basophils # (Auto) 0.01 K/uL RDW Standard Deviation 43.7 fL RDW Coefficient of Variation 13.3 % Immature Granulocyte % (Auto) 0.2 % Immature Granulocyte # (Auto) 0.03 K/uL Erythrocyte Sedimentation Rate 66 mm/hr Prothrombin Time 11.4 SECONDS Prothromb Time International Ratio 1.1 Activated Partial Thromboplast Time 31.7 SECONDS Partial Thromboplastin Ratio 1.2 Sodium Level 131 mmol/L Potassium Level 3.8 mmol/L Chloride Level 94 mmol/L Carbon Dioxide Level 26 mmol/L Anion Gap 11.0 mmol/L Blood Urea Nitrogen 36 mg/dl Creatinine 2.20 mg/dl Est Creatinine Clear Calc Drug Dose 26.0 ml/min Estimated GFR () 24.8 Estimated GFR (Non- 21.4 BUN/Creatinine Ratio 16.3 Random Glucose 142 mg/dl Calcium Level 8.3 mg/dl Phosphorus Level 2.8 mg/dl Magnesium Level 2.3 mg/dl Total Bilirubin 0.4 mg/dl Aspartate Amino Transf (AST/SGOT) 22 U/L Alanine Aminotransferase (ALT/SGPT) 15 U/L Alkaline Phosphatase 137 U/L Total Creatine Kinase 48 U/L Creatine Kinase MB < 0.5 ng/ml Creatine Kinase MB Ratio Troponin I 0.053 ng/ml C-Reactive Protein 13.60 mg/dl Pro-B-Type Natriuretic Peptide 23051 pg/ml Total Protein 8.0 gm/dl Albumin 3.4 gm/dl Globulin 4.6 gm/dl Albumin/Globulin Ratio 0.7 Lipase 64 U/L Carbamazepine (Tegretol) Level 13.1 mcg/ml Bedside Lactic Acid Venous 1.10 mmol/L Urine Color RED Urine Appearance CLOUDY Urine pH 5.0 Urine Specific [place] 1.015 Urine Protein 3+ Urine Glucose (UA) NEG Urine Ketones NEG Urine Occult Blood 3+ Urine Nitrite POS Urine Bilirubin NEG Urine Urobilinogen NEG Urine Leukocyte Esterase MODERATE Urine WBC (Auto) >30 /hpf Urine RBC (Auto) >30 /hpf Urine Hyaline Casts (Auto) 0 /lpf Urine Epithelial Cells (Auto) 20-30 /lpf Urine Bacteria (Auto) NEG Urine Pathogenic Casts See comments /lpf Venous Blood pH 7.39 Venous Blood Partial Pressure CO2 48 mmHg Venous Blood Partial Pressure O2 34 mmHg Venous Blood HCO3 28 meq/L Venous Blood Oxygen Saturation < 60.0 % Venous Blood Base Excess 2.7 mmol/L Test 07/08/16 00:54 07/08/16 07:23 Total Creatine Kinase 78 U/L 110 U/L Creatine Kinase MB 1.5 ng/ml 1.8 ng/ml Creatine Kinase MB Ratio 1.9 1.6 Troponin I 0.104 ng/ml 0.545 ng/ml White Blood Count 9.67 K/uL Red Blood Count 2.90 M/uL Hemoglobin 9.0 g/dL Hematocrit 26.9 % Mean Corpuscular Volume 92.8 fL Mean Corpuscular Hemoglobin 31.0 pg Mean Corpuscular Hemoglobin Concent 33.5 g/dl Platelet Count 172 K/uL Mean Platelet Volume 8.7 fL Neutrophils (%) (Auto) 88.2 % Lymphocytes (%) (Auto) 3.3 % Monocytes (%) (Auto) 8.2 % Eosinophils (%) (Auto) 0.0 % Basophils (%) (Auto) 0.1 % Neutrophils # (Auto) 8.53 K/uL Lymphocytes # (Auto) 0.32 K/uL Monocytes # (Auto) 0.79 K/uL Eosinophils # (Auto) 0.00 K/uL Basophils # (Auto) 0.01 K/uL RDW Standard Deviation 46.0 fL RDW Coefficient of Variation 13.5 % Immature Granulocyte % (Auto) 0.2 % Immature Granulocyte # (Auto) 0.02 K/uL Prothrombin Time 11.9 SECONDS Prothromb Time International Ratio 1.1 Activated Partial Thromboplast Time 34.6 SECONDS Partial Thromboplastin Ratio 1.3 Sodium Level 137 mmol/L Potassium Level 3.4 mmol/L Chloride Level 101 mmol/L Carbon Dioxide Level 25 mmol/L Anion Gap 11.0 mmol/L Blood Urea Nitrogen 37 mg/dl Creatinine 1.80 mg/dl Est Creatinine Clear Calc Drug Dose 30.6 ml/min Estimated GFR () 31.6 Estimated GFR (Non- 27.2 BUN/Creatinine Ratio 20.6 Random Glucose 125 mg/dl Calcium Level 7.7 mg/dl Magnesium Level 2.3 mg/dl Assessment and Plan Nonresponsive state post seizure 9 hours prior to arrival-the patient will be admitted to the hospital for neuro checks. We changed to Keppra 1000 mg by mouth twice a day to 1000 mg IV twice a day. We will hold lamotrigine 200 mg by mouth every 12 hours and carbamazepine 300 mg by mouth twice a day do to nonresponsive state. She primarily appears Dehydrated at this point, and well treat her conservatively with IV fluids and follow her response. She does not appear to have aspirated, and has no other signs of active infection. Continue to hold carbamazepine for now. Recheck levels in am. No further seizures since admit CAD/hypertension/chronic renal insufficiency--troponin mildly elevated 0.053. We'll admit to telemetry unit for serial cardiac enzymes, and cardiac rhythm monitoring. Resume aspirin 325 mg by mouth every morning. Hold furosemide 60 mg by mouth daily, and losartan potassium 25 mg by mouth daily until renal fn is back to baseline. We'll gently hydrate with IV fluids. Continue with IV fluids. Renal fn has improved. Anemia:L Likely chronic. Check Fe studies, B12, folate GERD--Resume Ranitidine 150mg bid. Disposition--family for patient to return to [facility]. She is a level V DNR.
[2016-07-08] MEDS: LEVETIRACETAM IV 1,000 MG in DEXTROSE 5% 100ML 100 ML IV SCH ×2 (08:57→20:20)
[2016-07-08] MEDS: PANTOprazole INJ 40 MG in SYRINGE 0 ML IV SCH (11:29)
[2016-07-08] MEDS: HEPARIN SOD 5000 UNIT/0.5 ML CARP SQ SCH ×2 (12:58→20:30)
[2016-07-08] MEDS ORDERED: NURSING VERBAL MED ORDER ONE (13:30)
[2016-07-08] MEDS ORDERED: PIPERACILL/TAZOBAC CONSULT ACTIVE PRN (13:45)
[2016-07-08] MEDS ORDERED: PIPERACILL/TAZOBAC IV 4.5 GM in DEXTROSE 5% 100ML IV ONE (14:00)
[2016-07-08 15:39] LABS: CKMB/CK RATIO 1.2 (0-3.0)
[2016-07-08] MEDS: PIPERACILL/TAZOBAC IV 4.5 GM in DEXTROSE 5% 100ML IV SCH (20:20)
[2016-07-08] MEDS ORDERED: ALBUTEROL 0.5% NEB SOLN 2.5 MG/0.5 ML VIAL INH SCH (21:00)
[2016-07-09] VITALS (7 sets, daily range): BP systolic 121–171; BP diastolic 64–78; PULSE 60–87; TEMP 36.7–37; O2SAT 96–100
[2016-07-09] MEDS: ACETAMINOPHEN SOLN 650MG/20.3 ML UDC PO PRN ×2 (00:03→20:16)
[2016-07-09] MEDS: PIPERACILL/TAZOBAC IV 4.5 GM in DEXTROSE 5% 100ML IV SCH ×3 (04:37→20:15)
--- NOTE | 2016-07-09 06:21 | Clinical Documentation Query ---
CLINICAL DOCUMENTATION QUERY 76 year old female who presents to the Emergency Room from [facility] via S with complaints of altered mental status, seizure, and unresponsiveness. Query#1/3 In your clinical opinion is this patient being managed for: ( x ) Sepsis, source undetermined, evidenced by seizure, unresponsiveness, fever, tachypnea, leukocytosis, and +1/2 BC treated with IVF bolus, IV Keppra, and IV Zosyn. ( ) Other explanation of clinical findings (Please Explain) ( ) Unable to determine (Please Define) ( ) Need to Discuss ( ) Not Agree The medical record reflects the following clinical findings, treatment, and risk factors. Clinical Indicators: seizure, unresponsiveness, fever (both subjective and after arrival Tmax 39.5) , tachycardia 93, tachypnea 28-30, leukocytosis 12.84, and +1/2 BC with gram negative bacilli. Treatment: IVF bolus then primary, IV Keppra, IV Zosyn, STAT CXR. Risk Factors: Age, recent UTI, ?of pulmonary process given wheezing and tachypnea. Query #2/3 In your clinical opinion is this patient being managed for: (x ) Metabolic encephalopathy in setting of sepsis causing fever and unresponsiveness. ( ) Other explanation of clinical findings (Please Explain) ( ) Unable to determine (Please Define) ( ) Need to Discuss ( ) Not Agree The medical record reflects the following clinical findings, treatment, and risk factors. Clinical Indicators: fever (both subjective and after arrival Tmax 39.5) , tachycardia 93, tachypnea 28-30, leukocytosis 12.84, and +1/2 BC with gram negative bacilli. Treatment: IVF bolus then primary, IV Keppra, IV Zosyn, telemetry, q4hr neurochecks Risk Factors: Age, infection, fever, leukocytosis, Query#3/3 In your clinical opinion is this patient being managed for: ( ) NSTEMI in setting of sepsis ( x ) Demand Ischemia in setting of sepsis ( ) Other explanation of clinical findings (Please Explain) ( ) Unable to determine (Please Define) ( ) Need to Discuss ( ) Not Agree The medical record reflects the following clinical findings, treatment, and risk factors. Clinical Indicators: Rising troponin's (0.053, 0.104, 0.545. 0.735), Fever 39.5, tachycardia 93 Treatment: O2, telemetry, Heparin SQ, Risk Factors: Age, HTN, Please clarify and document your clinical opinion in the progress notes and discharge summary. Terms such as "probable", "suspected", "likely", "questionable", "possible", or "still to be ruled out" are acceptable. IF IN AGREEMENT, YOU MUST DOCUMENT ABOVE DIAGNOSTIC STATEMENT IN DAILY PROGRESS NOTES AND DISCHARGE SUMMARY. This document is not part of the patient's record. * 2 of 4 SIRS criteria may clinically support both an infectious process and a systemic process, i.e. Sepsis. * Temperature >38C or <36C * Heart Rate >90/min * Respiratory Rate >20/min or PaCO2 <32 mm Hg * WBC >12,000/mm3 or <4000/mm3 or >10% immature bands Metabolic Encephalopathy Risk Factors: * severe electrolyte imbalances, * acute and chronic renal failure, * sepsis, * hypoxia, * severe nutritional deficiencies, * SIRS d/t a non-infection process ([place], trauma) Clinical Indicators: The main features of reversible metabolic encephalopathy are confusion, typified by disorientation and inattentiveness and accompanied in certain special instances by asterixis, tremor, and myoclonus, usually without signs of focal cerebral disease. This state may progress in stages to one of stupor and coma. Slowing of the background rhythms in the electroencephalogram (EEG) reflects the severity of the metabolic disturbance. Seizures may or may not occur, most being associated with particular underlying causes of encephalopathy such as hyponatremia and hyperosmolarity. Treatment: * Metabolic encephalopathy is reversible if treated promptly and prior to permanent brain damage. * The primary plan of care is treatment of the underlying cause. Thank You, Marvin Corado RN [phone]
--- NOTE | 2016-07-09 06:50 | DIAGNOSTIC IMAGING REPORT ---
CHEST ONE VIEW PORTABLE CLINICAL HISTORY: Wheezing. COMPARISON STUDY: Chest radiograph July 07, 2016. 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 There is no pneumothorax or pleural effusion. Lung volumes are diminished. Cardiomegaly is unchanged. There has been interval development of interstitial thickening and mild right lower lung airspace opacity. IMPRESSION: 1. Interval development of asymmetric interstitial thickening and right lower lung opacity. The findings favor pneumonia. Asymmetric pulmonary edema could appear similar. 2. Diminished lung volumes. 3. Stable cardiomegaly. Electronically signed by: Romeo Atkinson M.D. 07/09/2016 6:48 AM Dictated Date/Time: 07/09/2016 6:47 AM
[2016-07-09 07:15] LABS: BASO % 0.1 %; BASO ABS # 0.01 K/uL (0-0.2); EOS % 0.1 %; IG% 0.2 %; LYMPH % 9.5 %; LYMPH ABS # 0.77 K/uL (1.2-3.4); MEAN CELL VOLUME 93.8 fL (80-100); MEAN CORPUSCULAR HEMOGLOBIN 30.9 pg (25-34); MEAN PLATELET VOLUME 9.8 fL (7.4-10.4); MONO % 9.6 %; NEUT % 80.5 %; PLATELET COUNT 169 K/uL (130-400); RED BLOOD COUNT 2.88 M/uL (4.2-5.4)
[2016-07-09] MEDS: ALBUT/IPRATROP 3MG/0.5MG NEB 3 ML VIAL INH SCH ×4 (07:34→19:46)
[2016-07-09 07:37] LABS: INR 1.1 (0.9-1.1); PARTIAL THROMBOPLASTIN RATIO 1.4
[2016-07-09 07:47] LABS: CREATININE 2.1 mg/dl (0.60-1.20)
[2016-07-09 07:48] LABS: CALCIUM 7.5 mg/dl (8.5-10.1); MAGNESIUM 2.5 mg/dl (1.8-2.4); POTASSIUM 3.3 mmol/L (3.5-5.1)
[2016-07-09 07:55] LABS: COMPLETE YES; LARGE PLATELETS 1+
--- NOTE | 2016-07-09 08:24 | Hospitalist Progress Note ---
Hospitalist Progress Note Date of Service Jul 09, 2016. Subjective Pt evaluation today including: conversation w/ patient, physical exam, chart review Voiding: fuentes catheter in place Constitutional: + fever ENT: No dental problems, No hearing loss, No nasal symptoms, No problem reported, No see HPI, No sore throat, No tinnitus, No trouble swallowing, No unusual epistaxis Respiratory: No cough, No dyspnea at rest, No dyspnea on exertion, No hemoptysis, No problem reported, No see HPI, No shortness of breath, No sputum, No wheezing Cardiovascular: No PND, No chest pain, No claudication, No edema, No orthopnea, No palpitations, No problem reported, No see HPI Abdomen: No GI bleeding, No constipation, No diarrhea, No nausea, No pain, No problem reported, No see HPI, No vomiting Endo: No excessive thirst, No excessive urination, No fatigue, No problem reported, No see HPI All Other Systems: Reviewed and Negative Medications Medications (Trade) Dose Ordered Sig/Regla Route Start Time Stop Time Status Last Admin Dose Admin Heparin Sodium (Porcine) 5000 unit 5,000 unit Q12 SQ 07/08/16 09:00 08/07/16 08:59 07/08/16 20:30 5,000 UNIT Levetiracetam 1000 mg/Dextrose 110 ml @ 440 mls/hr BID IV 07/08/16 09:00 08/07/16 08:59 07/08/16 20:20 440 MLS/HR Pantoprazole Sodium 40 mg/ Syringe 10 ml @ 5 mls/min DAILY@11 IV 07/08/16 11:00 08/07/16 10:59 07/08/16 11:29 5 MLS/MIN Piperacillin Sod/ Tazobactam Sod 4.5 gm/Dextrose 120 ml @ 200 mls/hr TODAY@1400 ONCE IV 07/08/16 14:00 07/08/16 14:35 DC 07/08/16 14:39 200 MLS/HR Piperacillin Sod/ Tazobactam Sod/ Dextrose (Zosyn Iv/D5 100ml) 120 ml @ 30 mls/hr Q8H IV 07/08/16 20:00 07/22/16 19:59 07/09/16 04:37 30 MLS/HR Albuterol Sulfate (Ventolin 0.5% 2.5MG/0.5ML Neb) 2.5 mg Q6R INH 07/08/16 21:00 07/09/16 02:16 DC 07/08/16 19:42 2.5 MG Albuterol/ Ipratropium (Duoneb) 3 ml QIDR INH 07/09/16 08:00 08/08/16 07:59 07/09/16 07:34 3 ML Objective Vital Signs Date Time Temp Pulse Resp B/P Pulse Ox O2 Delivery O2 Flow Rate FiO2 07/09/16 07:45 36.7 65 18 156/64 98 Nasal Cannula 2.0 07/09/16 07:34 65 16 98 Nasal Cannula 2.0 07/09/16 04:00 36.9 63 20 142/65 100 Nasal Cannula 2.0 07/09/16 04:00 100 Nasal Cannula 2.0 07/09/16 00:38 87 18 96 Nasal Cannula 2.0 07/08/16 23:59 92 Nasal Cannula 2.0 07/08/16 23:52 38.5 93 28 168/91 92 Nasal Cannula 2.0 07/08/16 20:00 Nasal Cannula 2.0 07/08/16 19:43 68 18 98 Nasal Cannula 2.0 07/08/16 19:36 37.0 62 20 144/70 99 Nasal Cannula 2.0 07/08/16 16:38 79 18 95 Room Air 07/08/16 16:00 Nasal Cannula 2.0 07/08/16 15:47 39.3 93 20 212/83 93 Nasal Cannula 2.0 07/08/16 12:02 37.9 76 20 147/63 98 Nasal Cannula 2.0 07/08/16 12:00 Nasal Cannula 2.0 Physical Exam General Appearance: WD/WN, no apparent distress Eyes: normal inspection ENT: normal ENT inspection, hearing grossly normal, TMs normal Neck: supple, no adenopathy, thyroid normal Respiratory/Chest: chest non-tender, lungs clear, normal breath sounds Cardiovascular: regular rate, rhythm, no edema, no gallop, no JVD, no murmur Abdomen: normal bowel sounds, non tender, no organomegaly Extremities: normal range of motion, non-tender, normal inspection, no pedal edema Neurologic/Psychiatric: oriented x 3 Skin: normal color Laboratory Results Last 24 Hours Test 07/08/16 09:30 07/08/16 15:04 07/08/16 20:02 07/09/16 06:46 Carbamazepine (Tegretol) Level 8.4 mcg/ml Total Creatine Kinase 150 U/L Creatine Kinase MB 1.8 ng/ml Creatine Kinase MB Ratio 1.2 Troponin I 0.735 ng/ml Bedside Glucose 144 mg/dl White Blood Count 8.10 K/uL Red Blood Count 2.88 M/uL Hemoglobin 8.9 g/dL Hematocrit 27.0 % Mean Corpuscular Volume 93.8 fL Mean Corpuscular Hemoglobin 30.9 pg Mean Corpuscular Hemoglobin Concent 33.0 g/dl Platelet Count 169 K/uL Mean Platelet Volume 9.8 fL Neutrophils (%) (Auto) 80.5 % Lymphocytes (%) (Auto) 9.5 % Monocytes (%) (Auto) 9.6 % Eosinophils (%) (Auto) 0.1 % Basophils (%) (Auto) 0.1 % Neutrophils # (Auto) 6.51 K/uL Lymphocytes # (Auto) 0.77 K/uL Monocytes # (Auto) 0.78 K/uL Eosinophils # (Auto) 0.01 K/uL Basophils # (Auto) 0.01 K/uL RDW Standard Deviation 46.6 fL RDW Coefficient of Variation 13.6 % Immature Granulocyte % (Auto) 0.2 % Immature Granulocyte # (Auto) 0.02 K/uL Large Platelets 1+ Prothrombin Time 12.0 SECONDS Prothromb Time International Ratio 1.1 Activated Partial Thromboplast Time 36.4 SECONDS Partial Thromboplastin Ratio 1.4 Sodium Level 137 mmol/L Potassium Level 3.3 mmol/L Chloride Level 103 mmol/L Carbon Dioxide Level 27 mmol/L Anion Gap 7.0 mmol/L Blood Urea Nitrogen 44 mg/dl Creatinine 2.10 mg/dl Est Creatinine Clear Calc Drug Dose 26.0 ml/min Estimated GFR () 26.2 Estimated GFR (Non- 22.6 BUN/Creatinine Ratio 21.0 Random Glucose 129 mg/dl Calcium Level 7.5 mg/dl Magnesium Level 2.5 mg/dl Assessment and Plan Nonresponsive state post seizure 9 hours prior to arrival-the patient will be admitted to the hospital for neuro checks. No seizures since admit to hospital Will change IV Keppra back to by mouth. OK to restart Lamotrigine and Carbamazepine. Repeat serum carbamazepine levels are WNL Will continue with IV fluids. Gram Negative Rods Sepsis Continue with IV Zosyn Will tailor therapy based on culture and sensitivity following identification of organism. We changed to Keppra 1000 mg by mouth twice a day to 1000 mg IV twice a day. We will hold lamotrigine 200 mg by mouth every 12 hours and carbamazepine 300 mg by mouth twice a day do to nonresponsive state. She primarily appears Dehydrated at this point, and well treat her conservatively with IV fluids and follow her response. She does not appear to have aspirated, and has no other signs of active infection. Continue to hold carbamazepine for now. Recheck levels in am. No further seizures since admit CAD/hypertension/chronic renal insufficiency--troponin mildly elevated 0.053. We'll admit to telemetry unit for serial cardiac enzymes, and cardiac rhythm monitoring. Resume aspirin 325 mg by mouth every morning. Hold furosemide 60 mg by mouth daily, and losartan potassium 25 mg by mouth daily until renal fn is back to baseline. We'll gently hydrate with IV fluids. Continue with IV fluids. Renal fn has improved. Anemia:L Likely chronic. Check Fe studies, B12, folate GERD--Resume Ranitidine 150mg bid. Disposition--family for patient to return to [facility]. She is a level V DNR.
[2016-07-09] MEDS: LEVETIRACETAM IV 1,000 MG in DEXTROSE 5% 100ML 100 ML IV SCH (08:41)
[2016-07-09] MEDS: HEPARIN SOD 5000 UNIT/0.5 ML CARP SQ SCH ×2 (08:43→20:18)
[2016-07-09] MEDS ORDERED: POTASSIUM CHLORIDE 20 MEQ/15 ML UDC PO STA (09:37)
[2016-07-09] MEDS: PANTOprazole INJ 40 MG in SYRINGE 0 ML IV SCH (11:27)
[2016-07-09] MEDS: SODIUM CHLORIDE 0.9% 1000ML 1,000 ML IV SCH ×2 (16:30→16:51)
--- NOTE | 2016-07-09 17:45 | ECHOCARDIOGRAM REPORT ---
*NOTICE TO RECEIVING REPUBLICAN AGENCY This information is strictly Confidential and protected under [place] law. [place] law prohibits you from making any further disclosure of this information unless further disclosure is expressly permitted by the written consent of the person to whom it pertains or is authorized by law. A general authorization for the release of medical or other information is not sufficient for this purpose. Hospital accepts no responsibility if the information is made available to any other person, INCLUDING THE PATIENT. Interpretation Summary * Name: CHANDRIKA LUO Study Date: 07/09/2016 04:01 PM BP: 156/64 mmHg * Patient Location: C.2T\S\S243\S\1 HR: 60 * : 1940 (M/d/yyy) Gender: Female Height: 63 in * Age: 76 yrs Ethnicity: CA Weight: 216 lb * Ordering Physician: Nayeli Martines * Performed By: Xi Sifuentes RDCS * * Reason For Study: Congestive heart failure * BSA: 2.0 m2 * Normal biventricular systolic function. * Mild concentric left ventricular hypertrophy. * Mild left atrial dilatation. * Trace mitral, pulmonic, and tricuspid regurgitation. * Moderate aortic stenosis. Procedure Details * A complete two-dimensional transthoracic echocardiogram was performed (2D, M-mode, Doppler and color flow Doppler). Left Ventricle * The left ventricle is normal in size. * There is mild concentric left ventricular hypertrophy. * Ejection Fraction = 55-60%. * Left ventricular systolic function is normal. Right Ventricle * The right ventricle is normal in size and function. Atria * The left atrium is mildly dilated. * Right atrial size is normal. * No ASD detected; PFO is not assessed. Mitral Valve * There is mild mitral annular calcification. * There is no mitral valve stenosis. * There is trace mitral regurgitation. Tricuspid Valve * The tricuspid valve is normal. * There is no tricuspid stenosis. * There is trace tricuspid regurgitation. Aortic Valve * The aortic valve is trileaflet. * The aortic valve is calcified and has decreased opening. * Moderate valvular aortic stenosis. * Aortic valve area was calculated at 1.3 cm\S\2 using the continuity equation. * Dimensionless index 0.43, consistent with moderate stenosis. * No aortic regurgitation is present. Pulmonic Valve * The pulmonary valve is inadequately visualized, but the Doppler data is adequate for interpretation. * There is no pulmonic valvular stenosis. * Trace pulmonic valvular regurgitation. Great Vessels * The aortic root is normal size. Pericardium/Pleural * There is no pericardial effusion. Great Vessels * The inferior vena cava is mildly dilated. MMode 2D Measurements and Calculations IVSd 1.3 cm LVIDd 4.1 cm LVIDs 2.9 cm LVPWd 1.2 cm IVS/LVPW 1.1 FS 28.0 % EDV(Teich) 73.6 ml ESV(Teich) 33.4 ml EF(Teich) 54.6 % EDV(cubed) 68.1 ml ESV(cubed) 25.5 ml EF(cubed) 62.6 % LV mass(C)d 178.3 grams LV mass(C)dI 89.2 grams/m\S\2 SV(Teich) 40.2 ml SI(Teich) 20.1 ml/m\S\2 SV(cubed) 42.7 ml SI(cubed) 21.3 ml/m\S\2 Ao root diam 2.9 cm Ao root area 6.7 cm\S\2 ACS 1.2 cm LA dimension 4.0 cm asc Aorta Diam 3.8 cm LA/Ao 1.4 LVOT diam 2.0 cm LVOT area 3.0 cm\S\2 LVAd ap4 25.4 cm\S\2 LVLd ap4 7.7 cm EDV(MOD-sp4) 71.4 ml EDV(sp4-el) 71.1 ml LVAs ap4 14.9 cm\S\2 LVLs ap4 6.6 cm ESV(MOD-sp4) 30.9 ml ESV(sp4-el) 28.7 ml EF(MOD-sp4) 56.6 % EF(sp4-el) 59.6 % LVAd ap2 23.0 cm\S\2 LVLd ap2 7.2 cm EDV(MOD-sp2) 66.0 ml EDV(sp2-el) 62.1 ml LVAs ap2 14.8 cm\S\2 LVLs ap2 6.5 cm ESV(MOD-sp2) 31.6 ml ESV(sp2-el) 28.5 ml EF(MOD-sp2) 52.0 % EF(sp2-el) 54.1 % LVLd %diff -6.83 % EDV(MOD-bp) 71.2 ml LVLs %diff -1.40 % ESV(MOD-bp) 31.5 ml EF(MOD-bp) 55.8 % SV(MOD-sp4) 40.4 ml SI(MOD-sp4) 20.2 ml/m\S\2 SV(MOD-sp2) 34.3 ml SI(MOD-sp2) 17.2 ml/m\S\2 SV(MOD-bp) 39.7 ml SI(MOD-bp) 19.9 ml/m\S\2 SV(sp4-el) 42.4 ml SI(sp4-el) 21.2 ml/m\S\2 SV(sp2-el) 33.6 ml SI(sp2-el) 16.8 ml/m\S\2 Doppler Measurements and Calculations MV E max maria 158.6 cm/sec MV A max maria 63.5 cm/sec MV E/A 2.5 MV dec time 0.12 sec Ao V2 max 274.5 cm/sec Ao max PG 30.1 mmHg Ao max PG (full) 24.5 mmHg Ao V2 mean 177.3 cm/sec Ao mean PG 14.1 mmHg Ao V2 VTI 51.8 cm JOSEFA(V,A) 1.3 cm\S\2 JOSEFA(V,D) 1.3 cm\S\2 LV V1 max PG 5.7 mmHg LV V1 max 119.1 cm/sec SV(Ao) 347.0 ml SI(Ao) 173.6 ml/m\S\2 PA V2 max 94.1 cm/sec PA max PG 3.5 mmHg PA acc slope 651.2 cm/sec\S\2 PA acc time 0.11 sec PI max maria 174.5 cm/sec PI max PG 12.2 mmHg PI dec slope 160.4 cm/sec\S\2 PI P1/2t 318.7 msec TR max maria 272.5 cm/sec PA pr(Accel) 29.9 mmHg
[2016-07-09] MEDS: LEVETIRACETAM 500 MG TAB PO SCH (20:16)
[2016-07-09] MEDS: CARBAMAZEPINE 200 MG TAB PO SCH (20:17)
[2016-07-10] VITALS (10 sets, daily range): BP systolic 137–170; BP diastolic 65–89; PULSE 63–82; TEMP 36.7–37.1; O2SAT 93–100
[2016-07-10] MEDS: SODIUM CHLORIDE 0.9% 1000ML 1,000 ML IV SCH ×2 (02:51→13:42)
[2016-07-10] MEDS: PIPERACILL/TAZOBAC IV 4.5 GM in DEXTROSE 5% 100ML IV SCH ×2 (03:48→13:50)
[2016-07-10 07:41] LABS: BASO % 0.2 %; BASO ABS # 0.02 K/uL (0-0.2); COMPLETE YES; EOS % 1.6 %; HEMATOCRIT 28.8 % (37-47); IG% 0.2 %; LYMPH % 10.3 %; LYMPH ABS # 0.89 K/uL (1.2-3.4); MEAN CORPUSCULAR HGB CONC 33.7 g/dl (32-36); MEAN PLATELET VOLUME 9.8 fL (7.4-10.4); NEUT % 76.7 %; PLATELET COUNT 191 K/uL (130-400); RED BLOOD COUNT 3.13 M/uL (4.2-5.4); WHITE BLOOD COUNT 8.63 K/uL (4.8-10.8)
[2016-07-10 07:50] LABS: PARTIAL THROMBOPLASTIN RATIO 1.4; PROTHROMBIN TIME (PATIENT) 10.7 SECONDS (9.0-12.0)
[2016-07-10] MEDS: ALBUT/IPRATROP 3MG/0.5MG NEB 3 ML VIAL INH SCH ×4 (07:50→19:44)
[2016-07-10 08:18] LABS: BUN/CREATININE RATIO 23.8 (10-20); CALCIUM 8.6 mg/dl (8.5-10.1); CREATININE 1.4 mg/dl (0.60-1.20); MAGNESIUM 2.5 mg/dl (1.8-2.4); POTASSIUM 3.5 mmol/L (3.5-5.1)
[2016-07-10] MEDS: CARBAMAZEPINE 200 MG TAB PO SCH ×2 (08:59→20:30)
[2016-07-10] MEDS: LEVETIRACETAM 500 MG TAB PO SCH ×2 (08:59→20:31)
[2016-07-10] MEDS: PANTOprazole SOD 40 MG TAB PO SCH (09:00)
[2016-07-10] MEDS: HEPARIN SOD 5000 UNIT/0.5 ML CARP SQ SCH ×2 (09:36→20:32)
--- NOTE | 2016-07-10 13:04 | Hospitalist Progress Note ---
Hospitalist Progress Note Date of Service Jul 10, 2016. Subjective Pt evaluation today including: conversation w/ patient, physical exam, chart review Voiding: fuentes catheter in place Medications Medications (Trade) Dose Ordered Sig/Regla Route Start Time Stop Time Status Last Admin Dose Admin Levetiracetam (Keppra Tab) 1,000 mg BID PO 07/09/16 21:00 08/08/16 20:59 07/10/16 08:59 1,000 MG Lamotrigine (Lamictal Tab) 200 mg BID PO 07/09/16 21:00 08/08/16 20:59 07/10/16 09:00 200 MG Carbamazepine (Tegretol Tab) 300 mg BID PO 07/09/16 21:00 08/08/16 20:59 07/10/16 08:59 300 MG Pantoprazole Sodium (Protonix Tab) 40 mg QAM PO 07/10/16 09:00 08/09/16 08:59 07/10/16 09:00 40 MG Objective Vital Signs Date Time Temp Pulse Resp B/P Pulse Ox O2 Delivery O2 Flow Rate FiO2 07/10/16 11:25 74 18 98 Nasal Cannula 2.0 07/10/16 08:37 68 18 98 Nasal Cannula 2.0 07/10/16 08:00 Nasal Cannula 2.0 07/10/16 07:51 37.1 72 20 137/65 100 Nasal Cannula 2.0 07/10/16 04:00 Nasal Cannula 07/10/16 03:45 36.8 70 23 167/69 99 Nasal Cannula 2.0 07/10/16 00:06 37.0 76 22 167/79 96 Nasal Cannula 2.0 07/09/16 23:59 Nasal Cannula 07/09/16 20:00 Nasal Cannula 07/09/16 19:46 80 16 97 Nasal Cannula 2.0 07/09/16 19:46 37.0 79 20 171/78 97 Nasal Cannula 2.0 07/09/16 15:55 Nasal Cannula 2.0 07/09/16 15:29 37.0 71 20 121/64 100 Nasal Cannula 2.0 Physical Exam General Appearance: WD/WN, no apparent distress Eyes: normal inspection, PERRL ENT: normal ENT inspection, hearing grossly normal Neck: supple, no adenopathy Respiratory/Chest: + decreased breath sounds, + wheezing Cardiovascular: regular rate, rhythm, no edema, no gallop Abdomen: normal bowel sounds, non tender Extremities: non-tender, no pedal edema 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, oriented x 3 Skin: normal color Laboratory Results Last 24 Hours Test 07/10/16 07:11 White Blood Count 8.63 K/uL Red Blood Count 3.13 M/uL Hemoglobin 9.7 g/dL Hematocrit 28.8 % Mean Corpuscular Volume 92.0 fL Mean Corpuscular Hemoglobin 31.0 pg Mean Corpuscular Hemoglobin Concent 33.7 g/dl Platelet Count 191 K/uL Mean Platelet Volume 9.8 fL Neutrophils (%) (Auto) 76.7 % Lymphocytes (%) (Auto) 10.3 % Monocytes (%) (Auto) 11.0 % Eosinophils (%) (Auto) 1.6 % Basophils (%) (Auto) 0.2 % Neutrophils # (Auto) 6.61 K/uL Lymphocytes # (Auto) 0.89 K/uL Monocytes # (Auto) 0.95 K/uL Eosinophils # (Auto) 0.14 K/uL Basophils # (Auto) 0.02 K/uL RDW Standard Deviation 46.1 fL RDW Coefficient of Variation 13.8 % Immature Granulocyte % (Auto) 0.2 % Immature Granulocyte # (Auto) 0.02 K/uL Prothrombin Time 10.7 SECONDS Prothromb Time International Ratio 1.0 Activated Partial Thromboplast Time 35.7 SECONDS Partial Thromboplastin Ratio 1.4 Sodium Level 137 mmol/L Potassium Level 3.5 mmol/L Chloride Level 104 mmol/L Carbon Dioxide Level 24 mmol/L Anion Gap 9.0 mmol/L Blood Urea Nitrogen 33 mg/dl Creatinine 1.40 mg/dl Est Creatinine Clear Calc Drug Dose 40.2 ml/min Estimated GFR () 42.8 Estimated GFR (Non- 36.9 BUN/Creatinine Ratio 23.8 Random Glucose 116 mg/dl Calcium Level 8.6 mg/dl Magnesium Level 2.5 mg/dl Assessment and Plan Nonresponsive state post seizure 9 hours prior to arrival-the patient will be admitted to the hospital for neuro checks. No seizures since admit to hospital Will change IV Keppra back to by mouth. OK to restart Lamotrigine and Carbamazepine. Repeat serum carbamazepine levels are WNL Will continue with IV fluids until renal function is back to baseline. Gram Negative Rods Sepsis, Klebsiella oxytoca Continue with IV Zosyn. ID eval. Will dc fuentes catheter Will tailor therapy based on culture and sensitivity following identification of organism. CAD/hypertension/chronic renal insufficiency--troponin mildly elevated 0.053. We'll admit to telemetry unit for serial cardiac enzymes, and cardiac rhythm monitoring. Resume aspirin 325 mg by mouth every morning. Hold furosemide 60 mg by mouth daily, and losartan potassium 25 mg by mouth daily until renal fn is back to baseline. Continue with IV fluids. Renal fn has improved. Anemia:L Likely chronic. Check Fe studies, B12, folate GERD--Resume Ranitidine 150mg bid. Disposition--family for patient to return to [facility]. She is a level V DNR.
[2016-07-10] MEDS ORDERED: NURSING VERBAL MED ORDER ONE (13:45)
[2016-07-10] MEDS: PANTOprazole INJ 40 MG in SYRINGE 0 ML IV SCH (13:50)
--- NOTE | 2016-07-10 14:55 | Progress Note ---
Progress Note Date of Service Jul 10, 2016. Progress Note ID Consult Dictated #[id number] A/P: 1. Klebsiella BSI - vs aspiration post seizure -Change to levaquin 500mg po daily, stop zosyn, -repeat blood cultures -will need 14 days from first negative culture -ok for d/c when medically stable -thank you
--- NOTE | 2016-07-10 15:11 | INFECT. DISEASE CONSULTATION ---
DATE OF CONSULTATION: 07/10/2016 DATE OF CONSULTATION: 07/10/2016. REQUESTING PHYSICIAN: Dr. Monaco. HISTORY OF PRESENT ILLNESS: This is a 76-year-old female who was admitted to the hospital after she had a seizure at her nursing facility. She was unresponsive at the time. She states on exam today that she is feeling significantly better. She denies any chest pain. She does have a cough but states it is nonproductive. She denies any shortness of breath. She denies any fevers or chills. She has no nausea, vomiting, diarrhea or abdominal pain. She does have a Morton catheter in place and she is unable to tell me if this is chronic or acute during this hospital stay. As part of her initial workup, blood cultures were obtained in the Emergency Room and are growing fairly sensitive Klebsiella pneumonia. Urinalysis was done. She had greater than 30 WBCs, but no bacteria. No urine culture was done. Repeat blood cultures have been obtained. She did have a CT of the head initially. She did have a chest x-ray done yesterday which showed a right lower lobe infiltrate which was felt to be pneumonia versus edema. She did have a fever of 39.3 on the th however on the and today she is afebrile. She was initially found to have a leukocytosis of 12,000. This has improved to 8.6. Her sed rate was elevated on admission at 66. She did have an elevated creatinine of 2.2, which has improved to 1.4. She was placed on Zosyn empirically and she remains on this. She did have an echocardiogram as part of her workup. There is no evidence of vegetation. Overall, she states she is feeling well. She states her appetite is stable and she is eating. She denies any complaints at this time. All remaining review of systems are reviewed and are negative. PAST MEDICAL HISTORY: Significant for abdominal aortic aneurysm, depression, esophageal reflux and hypertension. PAST SURGICAL HISTORY: Unremarkable. FAMILY HISTORY: Noncontributory. SOCIAL HISTORY: Positive for a resident at [facility]. ALLERGIES: She has no known drug allergies. CURRENT MEDICATIONS: Include Protonix, Keppra, Lamictal, Tegretol, DuoNebs, Zosyn, subQ heparin, Tylenol and Zofran. PHYSICAL EXAMINATION: VITAL SIGNS: She has been afebrile in the last 24 hours, pulse 82, respiratory rate is 20, blood pressure is 170/89, oxygen saturation is 94% on room air. GENERAL: She is awake, alert and oriented. She is in no acute distress. HEAD, EYES, EARS, NOSE, AND THROAT: Mucous membranes are moist. Extraocular muscles are intact. HEART: Regular. LUNGS: Clear bilaterally. ABDOMEN: Soft, nontender, nondistended. There is no edema bilaterally. SKIN: Without rash. LABORATORY STUDIES: CBC today reveals a white blood cell count of 8.6, hemoglobin 9.7, platelets are 191. Chemistry panel today reveals a sodium of 137, potassium 3.5, chloride 104, bicarbonate 24, BUN 33, creatinine 1.4, glucose is 116. Blood cultures from the are growing Klebsiella oxytoca is 1 out of 2 sets with resistance to Ancef only. Repeat blood cultures have been obtained. Imaging is as previous. ASSESSMENT AND PLAN: Klebsiella pneumonia septicemia with Klebsiella oxytoca septicemia secondary to either urinary source and/or aspiration event as she now has right lower lobe infiltrate post seizure. In any event, repeat blood cultures will be obtained today. If these are negative, she will need 14 days of antibiotics. I have changed her to oral Levaquin as she is eating and tolerating oral medications. My plan would be to give her 14 days of antibiotic therapy with p.o. Levaquin. There are no further ID recommendations at this time.
[2016-07-10] MEDS: LEVOFLOXACIN 500 MG TAB PO SCH (16:28)
[2016-07-10] MEDS: ACETAMINOPHEN SOLN 650MG/20.3 ML UDC PO PRN (20:31)
[2016-07-11 00:14] VITALS: BP 172/78; PULSE 69; TEMP 36.6; O2SAT 93
[2016-07-11] MEDS ORDERED: LOSARTAN POTASSIUM 25 MG TAB PO ONE (02:15)
[2016-07-11 03:44] VITALS: BP 183/74; PULSE 68; TEMP 36.7; O2SAT 94
[2016-07-11 04:30] VITALS: BP 172/104
[2016-07-11] MEDS ORDERED: NURSING VERBAL MED ORDER ONE (04:30)
[2016-07-11] MEDS ORDERED: HydrALAZINE HCL 20 MG/ML VIAL IV. PRN (05:00)
[2016-07-11 07:31] VITALS: PULSE 69; O2SAT 96
[2016-07-11] MEDS: ALBUT/IPRATROP 3MG/0.5MG NEB 3 ML VIAL INH SCH (07:31)
[2016-07-11 08:13] LABS: CREATININE 1.2 mg/dl (0.60-1.20)
[2016-07-11] MEDS: LEVETIRACETAM 500 MG TAB PO SCH (08:17)
[2016-07-11] MEDS: CARBAMAZEPINE 200 MG TAB PO SCH (08:17)
[2016-07-11] MEDS: PANTOprazole SOD 40 MG TAB PO SCH (08:17)
[2016-07-11] MEDS: HEPARIN SOD 5000 UNIT/0.5 ML CARP SQ SCH (08:22)
[2016-07-11] MEDS: ACETAMINOPHEN SOLN 650MG/20.3 ML UDC PO PRN (08:28)
[2016-07-11] MEDS ORDERED: LOSARTAN POTASSIUM 25 MG TAB PO SCH (09:00)
[2016-07-11 09:59] VITALS: BP 172/104; PULSE 69; TEMP 36.7; O2SAT 96
[2016-07-11] MEDS ORDERED: LVQ500 PO (10:11)
[2016-07-11] MEDS ORDERED: IPRASOL4 INH (10:11)
--- NOTE | 2016-07-11 10:14 | Discharge Instructions ---
Discharge Instructions Date of Service Jul 11, 2016. Admission Reason for Admission: Ams, Sirs Discharge Discharge Diagnosis / Problem: Klebsiella Pneumonia Discharge Goals Goal(s): Therapeutic intervention Activity Recommendations Activity Limitations: resume your previous activity Lifting Limitations: none Exercise/Sports Limitations: as tolerated Shower/Bathe: no limitations . Instructions / Follow-Up Instructions / Follow-Up PCP in one to two weeks Current Hospital Diet Patient's current hospital diet: AHA Diet (Heart Healthy) Discharge Diet Recommended Diet: AHA Diet (Heart Healthy) Pending Studies Studies pending at discharge: no Laboratory Results 07/10/16 07:11 Red Blood Count 3.13, Mean Corpuscular Volume 92.0, Mean Corpuscular Hemoglobin 31.0, Mean Corpuscular Hemoglobin Concent 33.7, Mean Platelet Volume 9.8, Neutrophils (%) (Auto) 76.7, Lymphocytes (%) (Auto) 10.3, Monocytes (%) (Auto) 11.0, Eosinophils (%) (Auto) 1.6, Basophils (%) (Auto) 0.2, Neutrophils # (Auto ) 6.61, Lymphocytes # (Auto) 0.89, Monocytes # (Auto) 0.95, Eosinophils # (Auto ) 0.14, Basophils # (Auto) 0.02 07/10/16 07:11 07/11/16 07:30 Test 07/07/16 19:12 07/07/16 19:18 07/07/16 19:20 07/07/16 20:18 Erythrocyte Sedimentation Rate 66 mm/hr (0-21) Phosphorus Level 2.8 mg/dl (2.5-4.9) Total Bilirubin 0.4 mg/dl (0.2-1) Aspartate Amino Transf (AST/SGOT) 22 U/L (15-37) Alanine Aminotransferase (ALT/SGPT) 15 U/L (12-78) Alkaline Phosphatase 137 U/L (45-117) C-Reactive Protein 13.60 mg/dl (0-0.29) Pro-B-Type Natriuretic Peptide 31102 pg/ml (0-900) Total Protein 8.0 gm/dl (6.4-8.2) Albumin 3.4 gm/dl (3.4-5.0) Globulin 4.6 gm/dl (2.5-4.0) Albumin/Globulin Ratio 0.7 (0.9-2) Lipase 64 U/L (73-393) Bedside Lactic Acid Venous 1.10 mmol/L (0.90-1.70) Urine Color RED Urine Appearance CLOUDY (CLEAR) Urine pH 5.0 (4.5-7.5) Urine Specific [place] 1.015 (1.000-1.030) Urine Protein 3+ (NEG) Urine Glucose (UA) NEG (NEG) Urine Ketones NEG (NEG) Urine Occult Blood 3+ (NEG) Urine Nitrite POS (NEG) Urine Bilirubin NEG (NEG) Urine Urobilinogen NEG (NEG) Urine Leukocyte Esterase MODERATE (NEG) Urine WBC (Auto) >30 /hpf (0-5) Urine RBC (Auto) >30 /hpf (0-4) Urine Hyaline Casts (Auto) 0 /lpf (0-5) Urine Epithelial Cells (Auto) 20-30 /lpf (0-5) Urine Bacteria (Auto) NEG (NEG) Urine Pathogenic Casts See comments /lpf (0) Venous Blood pH 7.39 (7.36-7.41) Venous Blood Partial Pressure CO2 48 mmHg (38.0-50.0) Venous Blood Partial Pressure O2 34 mmHg Venous Blood HCO3 28 meq/L Venous Blood Oxygen Saturation < 60.0 % Venous Blood Base Excess 2.7 mmol/L Test 07/08/16 09:30 07/08/16 15:04 07/08/16 20:02 07/09/16 06:46 Carbamazepine (Tegretol) Level 8.4 mcg/ml (4-12) Total Creatine Kinase 150 U/L (26-192) Creatine Kinase MB 1.8 ng/ml (0.5-3.6) Creatine Kinase MB Ratio 1.2 (0-3.0) Troponin I 0.735 ng/ml (0-0.045) Bedside Glucose 144 mg/dl (70-90) Large Platelets 1+ Test 07/10/16 07:11 07/11/16 07:30 White Blood Count 8.63 K/uL (4.8-10.8) Red Blood Count 3.13 M/uL (4.2-5.4) Hemoglobin 9.7 g/dL (12.0-16.0) Hematocrit 28.8 % (37-47) Mean Corpuscular Volume 92.0 fL (80-100) Mean Corpuscular Hemoglobin 31.0 pg (25-34) Mean Corpuscular Hemoglobin Concent 33.7 g/dl (32-36) Platelet Count 191 K/uL (130-400) Mean Platelet Volume 9.8 fL (7.4-10.4) Neutrophils (%) (Auto) 76.7 % Lymphocytes (%) (Auto) 10.3 % Monocytes (%) (Auto) 11.0 % Eosinophils (%) (Auto) 1.6 % Basophils (%) (Auto) 0.2 % Neutrophils # (Auto) 6.61 K/uL (1.4-6.5) Lymphocytes # (Auto) 0.89 K/uL (1.2-3.4) Monocytes # (Auto) 0.95 K/uL (0.11-0.59) Eosinophils # (Auto) 0.14 K/uL (0-0.5) Basophils # (Auto) 0.02 K/uL (0-0.2) RDW Standard Deviation 46.1 fL (36.4-46.3) RDW Coefficient of Variation 13.8 % (11.5-14.5) Immature Granulocyte % (Auto) 0.2 % Immature Granulocyte # (Auto) 0.02 K/uL (0.00-0.02) Prothrombin Time 10.7 SECONDS (9.0-12.0) Prothromb Time International Ratio 1.0 (0.9-1.1) Activated Partial Thromboplast Time 35.7 SECONDS (21.0-31.0) Partial Thromboplastin Ratio 1.4 Anion Gap 9.0 mmol/L (3-11) BUN/Creatinine Ratio 23.8 (10-20) Calcium Level 8.6 mg/dl (8.5-10.1) Magnesium Level 2.5 mg/dl (1.8-2.4) Est Creatinine Clear Calc Drug Dose 46.5 ml/min Estimated GFR () 51.6 Estimated GFR (Non- 44.5 Date/Time Source Procedure Growth Status 07/10/16 16:05 Blood Blood Culture Pending Received Medical Emergencies . Who to Call and When: Medical Emergencies: If at any time you feel your situation is an emergency, please call 911 immediately. . Non-Emergent Contact Non-Emergency issues call your: Primary Care Provider . Past History Medical & Surgical History: (1) Hypertension Nos (2) Abdom Aortic Aneurysm (3) SIRS (systemic inflammatory response syndrome) (4) Altered mental status (5) Elevated troponin (6) Acute kidney injury . "Provider Documentation" section prepared by Nayeli Martines. VTE Core Measure Inpt VTE Proph given/why not?: SCD's
--- NOTE | 2016-07-11 10:25 | Discharge Summary ---
Discharge Summary Date of Service Jul 11, 2016. Discharge Summary Admission Date: Jul 07, 2016 at 23:28 Discharge Date: Jul 11, 2016 Discharge Disposition: Home Principal Diagnosis: Klebsiella oxytoca Pneumonia Problems/Secondary Diagnoses: Altered mental status Acute kidney injury due to pre renal azotemia Hypertension Benign Moderate Aortic stenosis Immunizations: Have You Had Influenza Vaccine: Unknown History of Tetanus Vaccine?: Unknown History of Pneumococcal: Unknown History of Hepatitis B Vaccine: Unknown Consultations: Infectious diseases Medication Reconciliation New Medications: Ipratropium-Albuterol (Duoneb) 3 Ml Nebu 3 ML INH QIDR for 14 Days, #30 7 Refills Levofloxacin (Levofloxacin) 500 Mg Tab 500 MG PO DAILY@11 for 14 Days, TAB Continued Medications: Acetaminophen (Tylenol) 325 Mg Tab 650 MG PO Q6H PRN for Pain or Fever, TAB DNE 3GM/24 HOURS Aspirin (Aspirin) 325 Mg Tab 325 MG PO QAM Bisacodyl (Dulcolax) 5 Mg Tab 5 MG PO BID, TAB Carbamazepine (Carbamazepine) 200 Mg Tab 300 MG PO BID TAKE 1.5 X 200 MG TABLET= 300 MG TWICE A DAY. Cholecalciferol (Vitamin D3) 1,000 Unit Tab 1000 UNITS PO DAILY Furosemide (Lasix) 40 Mg Tab 60 MG PO DAILY, TAB TAKE 1.5 OF A 40MG TABLET Hydrocodone/Acetaminophen 5MG/325MG ([place] 5MG/325MG) Tab 1 TABLET PO Q4 PRN for MOD PAIN, TAB NTE 3GM APAP/24HRS Lamotrigine (Lamictal) 150 Mg Tab 300 MG PO Q12, TAB Levetiracetam (Levetiracetam) 1,000 Mg Tab 1000 MG PO BID Losartan Potassium (Cozaar) 25 Mg Tab 25 MG PO DAILY, TAB Magnesium Hydroxide (Milk of Magnesia) 30 Ml Susp 30 ML PO DAILY PRN for NO BM FOR 3 DAYS Prune Juice (Prune Juice ) Liqd OZ PO PRN UD OR STEWED PRUNES IF NO BM 2 DAYS Ranitidine HCl (Ranitidine HCl) 150 Mg Tab 150 MG PO HS Discontinued Medications: Bisacodyl (Dulcolax) 10 Mg Sup 1 SUPP OH PRN, SUP NEEDED FOR NO BOWEL MOVEMENT IN THREE DAYS. Oxycodone Hcl (Oxycodone Hcl) 10 Mg Tab 10 MG PO HS Propylene Glycol-Glycerin (Artificial Tears) 1 Javier Javier 1 DROP OPB QID Senna (Senokot) 8.6 Mg Tab 8.6 MG PO DAILY, 0 Refills Discharge Exam Physical Exam: General Appearance: WD/WN, no apparent distress Eyes: normal inspection ENT: normal ENT inspection Neck: supple, no adenopathy Respiratory/Chest: chest non-tender, no respiratory distress, + wheezing Cardiovascular: regular rate, rhythm, no edema, + systolic murmur Abdomen / GI: normal bowel sounds, non tender Extremities: normal inspection, no calf tenderness Neurologic/Psychiatric: mobile unit assistant II-XII nml as tested, oriented x 3 Skin: normal color Hospital Course (1) Depressive Disorder Nec Stable. Continue with OP medications (2) Acute kidney injury Resolved with IV fluids and renal indices returned to baseline. (3) SIRS (systemic inflammatory response syndrome) Treated with IV antibiotics, BS. Blood cultures were+ for Klebsiella oxytoca. Seen by ID and recommended 14 days of oral antibiotics. (4) Abdom Aortic Aneurysm No complaints during this hospitalization. Stable (5) Hypertension Nos Restarted OP medications. On Losartan 25mg daily. Can adjust dose to 50mg daily to better control BP. (6) Elevated troponin Likely due to demand ischemia. (7) Altered mental status Improved with treatment of infection. (8) Dehydration This is a 76-year-old female who was admitted to the hospital after she had a seizure at her nursing facility. She was unresponsive at the time. She states on exam today that she is feeling significantly better. She denies any chest pain. She does have a cough but states it is nonproductive. She denies any shortness of breath. She denies any fevers or chills. She has no nausea, vomiting, diarrhea or abdominal pain. She does have a Morton catheter in place and she is unable to tell me if this is chronic or acute during this hospital stay. As part of her initial workup, blood cultures were obtained in the Emergency Room and are growing fairly sensitive Klebsiella pneumonia. Urinalysis was done. She had greater than 30 WBCs, but no bacteria. No urine culture was done. Repeat blood cultures have been obtained. She did have a CT of the head initially. She did have a chest x-ray done yesterday which showed a right lower lobe infiltrate which was felt to be pneumonia versus edema. She did have a fever of 39.3 on the however on the and today she is afebrile. She was initially found to have a leukocytosis of 12,000. This has improved to 8.6. Her sed rate was elevated on admission at 66. She did have an elevated creatinine of 2.2, which has improved to 1.4. She was placed on Zosyn empirically and she remains on this. She did have an echocardiogram as part of her workup. There is no evidence of vegetation. Overall, she states she is feeling well. She states her appetite is stable and she is eating. She denies any complaints at this time. All remaining review of systems are reviewed and are negative. Total Time Spent: Greater than 30 minutes This includes examination of the patient, discharge planning, medication reconciliation, and communication with other providers. Discharge Instructions Please refer to the electronic Patient Visit Report (Discharge Instructions) for additional information. Follow-Up with PCP in one to two weeks post discharge. Problem Qualifiers (1) Altered mental status: Altered mental status type: disorientation Qualified Codes: R41.0 - Disorientation, unspecified
[2016-07-11] MEDS: PANTOprazole INJ 40 MG in SYRINGE 0 ML IV SCH (10:43)
[2016-07-11] MEDS: LEVOFLOXACIN 500 MG TAB PO SCH (10:43)
[2016-07-11 11:07] VITALS: BP 138/74; PULSE 71; TEMP 36.5; O2SAT 95
[2016-07-11] MEDS ORDERED: HydrALAZINE 10 MG TAB PO SCH (12:00)
== END 2016-07-11 11:32 | DRG 871 ==
LOC: ENRESERVTM → ENRESERVDT → EDBD 19:00 → C.EDC 19:01 → C.2T 23:28
PROVIDERS: ADMIT Hospitalist; ATTEND Hospitalist
DX: A41.59 Other Gram-negative sepsis (principal); J69.0 Pneumonitis due to inhalation of food and vomit; G93.41 Metabolic encephalopathy; J15.0 Pneumonia due to Klebsiella pneumoniae; N17.9 Acute kidney failure, unspecified; N10 Acute pyelonephritis; I24.8 Other forms of acute ischemic heart disease; E87.1 Hypo-osmolality and hyponatremia; B96.1 Klebsiella pneumoniae [K. pneumoniae] as the cause of diseases classified elsewhere; I25.10 Atherosclerotic heart disease of native coronary artery without angina pectoris; K21.9 Gastro-esophageal reflux disease without esophagitis; I35.0 Nonrheumatic aortic (valve) stenosis; F32.9 Major depressive disorder, single episode, unspecified; E86.0 Dehydration; N18.9 Chronic kidney disease, unspecified; Z66 Do not resuscitate; D64.9 Anemia, unspecified; R56.9 Unspecified convulsions; R79.89 Other specified abnormal findings of blood chemistry; R41.82 Altered mental status, unspecified; I71.4 Abdominal aortic aneurysm, without rupture; I12.9 Hypertensive chronic kidney disease with stage 1 through stage 4 chronic kidney disease, or unspecified chronic kidney disease; Z79.899 Other long term (current) drug therapy; Z79.82 Long term (current) use of aspirin; Z79.891 Long term (current) use of opiate analgesic; R31.9 Hematuria, unspecified

== ENCOUNTER → 2016-07-07 | Outpatient (CLI) | payer OTHER ==
[2016-07-07 18:21] LABS: URINE APPEARANCE TURBID (CLEAR); URINE BILIRUBIN NEG (NEG); URINE COLOR YELLOW; URINE EPITHELIAL CELL AUTO >30 /lpf (0-5); URINE NITRITE POS (NEG); UROBILINOGEN NEG (NEG)
[2016-07-07 18:58] LABS: MANUAL MICROSCOPIC REQUIRED? NO; REVIEW REQ? NO
== END ==
LOC: C.LABCC 17:24
PROVIDERS: ATTEND Internal Medicine
DX: R31.9 Hematuria, unspecified (principal)

== ENCOUNTER → 2016-07-29 | Outpatient (CLI) | payer OTHER ==
[~2016-07-29] MED LIST changes: +ARTISOL12 OPB; +ASPI325T45 PO; +BISA-16 PO; -BISA10SU38 PR; +CEFD300C2 PO; +CEFT1INJ57 IM; +IPRASOL4 INH; +LEVE100021 PO; -LEVE1TAB57 PO; +LVQ500 PO; -MAGNSUS5 PO; +MOMLX PO; -OXYC-164 PO; -POLY99.02 OPB; +POTA20TA13 PO; -SENN-61 PO; +SODIENE PR; +vancomycin IV
[2016-07-29 08:56] LABS: BLOOD UREA NITROGEN 20 mg/dl (7-18); BUN/CREATININE RATIO 18.3 (10-20); CARBON DIOXIDE 31 mmol/L (21-32); CHLORIDE 101 mmol/L (98-107); GLUCOSE 93 mg/dl (70-99); POTASSIUM 3.6 mmol/L (3.5-5.1); SODIUM 139 mmol/L (136-145)
[2016-07-29 09:35] LABS: CALCIUM 8.7 mg/dl (8.5-10.1)
== END ==
LOC: C.LABCC 08:34 → EDSTATUS 08-12 12:43
PROVIDERS: ATTEND Internal Medicine
DX: E87.6 Hypokalemia (principal)

== ENCOUNTER → 2016-07-30 | Outpatient (CLI) | payer OTHER ==
[2016-07-30 14:20] LABS: MANUAL MICROSCOPIC REQUIRED? YES; REVIEW REQ? NO; URINE APPEARANCE TURBID (CLEAR); URINE COLOR RED
[2016-07-30 14:21] LABS: SULFASALICYLIC ACID POS (NEG)
[2016-07-30 14:35] LABS: URINE RBC >30 /hpf (0-4)
[2016-07-30 14:36] LABS: URINE BACTERIA 1+ (NEG)
== END ==
LOC: C.LABCC 12:16 → EDSTATUS 08-12 12:41
PROVIDERS: ATTEND Internal Medicine
DX: R31.9 Hematuria, unspecified (principal); Z09 Encounter for follow-up examination after completed treatment for conditions other than malignant neoplasm

== ENCOUNTER → 2016-07-31 | Outpatient (CLI) | payer OTHER ==
[2016-07-31 10:12] LABS: BASO ABS # 0.05 K/uL (0-0.2); COMPLETE YES; EOS % 6.5 %; HEMATOCRIT 28.2 % (37-47); IG% 0.2 %; LYMPH % 34.8 %; LYMPH ABS # 1.83 K/uL (1.2-3.4); MEAN CELL VOLUME 93.7 fL (80-100); MEAN CORPUSCULAR HEMOGLOBIN 29.9 pg (25-34); MEAN CORPUSCULAR HGB CONC 31.9 g/dl (32-36); MONO % 14.1 %; NEUT % 43.4 %; PLATELET COUNT 256 K/uL (130-400); RED BLOOD COUNT 3.01 M/uL (4.2-5.4); WHITE BLOOD COUNT 5.26 K/uL (4.8-10.8)
== END ==
LOC: C.LABCC 09:12 → EDSTATUS 08-12 12:36
PROVIDERS: ATTEND Internal Medicine
DX: R31.9 Hematuria, unspecified (principal)

== ENCOUNTER 2016-08-06 13:03 | Inpatient (IN) | payer OTHER ==
[~2016-08-06] VITALS: Ht 152.4 cm; Wt 97.8 kg
[~2016-08-06 13:03] MED LIST changes: -ARTISOL12 OPB; -CEFD300C2 PO; -CEFT1INJ57 IM; -POTA20TA13 PO; -SODIENE PR; -vancomycin IV
--- NOTE | 2016-08-06 13:42 | EMERGENCY ROOM VISIT NOTE ---
History Report prepared by Radha: Nathaniel De Paz Under the Supervision of: Dr. Juan José Leon D.O. First contact with patient: 13:30 Chief Complaint: WEAKNESS Stated Complaint: NOT EATING,DECLINING FOOD History of Present Illness The patient is a 76 year old female who presents to the Emergency Room from [facility] with complaints of worsening weakness that started prior to arrival today. Per the nursing staff, the patient has been declining rapidly and is not breathing well. Per the report from [facility], the patient has had an increasing temperature today as well as increased unresponsiveness. The patient is not talking at all today and is declining food and not eating. She usually feeds herself. The patient is noted to have had multiple fall recently and a recent UTI. She is normally conversive and talkative, per nursing staff. History limited secondary to patient's unresponsiveness. Source of History: nursing staff, other ([facility] report) History Limited By: other (unresponsivenss) Onset: Prior to arrival today Position: other (global - weakness) Timing: worsening Associated Symptoms: + SOB Note: Associated symptoms: Declining rapidly, increasing temperature and increased unresponsiveness. Not talking at all today and is declining food and not eating. Review of Systems ROS limited secondary to patient's unresponsiveness. Past Medical & Surgical Medical Problems: (1) Abdom Aortic Aneurysm (2) Altered mental state (3) Depressive Disorder Nec (4) Esophageal Reflux (5) Fibula fracture (6) Hypertension Nos (7) SIRS (systemic inflammatory response syndrome) (8) UTI (urinary tract infection) Family History Omitted secondary to age Social History Smoking Status: Unknown if Ever Smoked Alcohol Use: none Drug Use: none Housing Status: senior care Occupation Status: retired Current/Historical Medications Scheduled Artificial Tear Solution (Artificial Tears), 1 DROP OPB QID Bisacodyl (Dulcolax), 5 MG PO BID Carbamazepine (Carbamazepine), 300 MG PO BID Ceftriaxone Sod (Rocephin), 1 GM IM DAILY Cholecalciferol (Vitamin D3), 1,000 UNITS PO DAILY Furosemide (Lasix), 60 MG PO DAILY Lamotrigine (Lamictal), 300 MG PO Q12 Levetiracetam (Levetiracetam), 1,000 MG PO BID Losartan Potassium (Cozaar), 25 MG PO DAILY Potassium Chloride Microencaps (Potassium Chloride Er), 20 MEQ PO DAILY Prune Juice (Prune Juice ), OZ PO PRN UD Ranitidine HCl (Ranitidine HCl), 150 MG PO HS Sodium Phosphate/Biphosphate (Fleet Enema), [address] UD Scheduled PRN Acetaminophen (Tylenol), 650 MG PO Q6H PRN for Pain or Fever Hydrocodone/Acetaminophen 5MG/325MG ([place] 5MG/325MG), 1 TABLET PO Q4 PRN for MOD PAIN Magnesium Hydroxide (Milk of Magnesia), 30 ML PO DAILY PRN for NO BM FOR 3 DAYS Allergies Coded Allergies: No Known Allergies (Verified , 07/07/16) Physical Exam Vital Signs Date Time Temp Pulse Resp B/P Pulse Ox O2 Delivery O2 Flow Rate FiO2 08/06/16 18:52 39.6 91 20 169/90 96 08/06/16 16:50 86 18 145/94 96 Nasal Cannula 2.0 08/06/16 15:48 40.1 93 14 157/70 94 Nasal Cannula 2.0 08/06/16 14:44 92 08/06/16 14:41 92 Room Air 08/06/16 13:09 37.5 78 26 151/80 91 Physical Exam GENERAL: Patient is listless, slow to respond to questions but answers to loud verbal commands. EYES: The conjunctivae are clear. The pupils are round and reactive. EARS, NOSE, MOUTH AND THROAT: The nose is without any evidence of any deformity. Mucous membranes are dry tongue is midline NECK: The neck is nontender and supple. RESPIRATORY: Shallow respirations noted. There were diffuse scattered rhonchi noted, no tachypnea appreciated. CARDIOVASCULAR: Regular rate and rhythm noted there no murmurs rubs or gallops normal S1 normal S2 GASTROINTESTINAL: The abdomen is soft. Bowel sounds are present in all quadrants. Abdomen is nontender MUSCULOSKELETAL/EXTREMITIES: Chronic changes in right lower extremity. No acute deformities appreciated. SKIN: Pedal edema bilaterally. NEUROLOGIC: Patient is oriented to person but no place, time, or situation. Strength diminished but symmetric. Medical Decision & Procedures ER Provider Diagnostic Interpretation: Radiology results as stated below per my review and radiologist interpretation: SINGLE VIEW CHEST CLINICAL HISTORY: Sepsis. FINDINGS: An AP, portable, upright chest radiograph is compared to study dated 07/09/2016. The examination is degraded by portable technique and patient rotation. The heart is enlarged and there is atherosclerotic calcification of the thoracic aorta. The pulmonary vasculature is mildly congested. There are low lung volumes with bibasilar atelectasis. No airspace consolidation is seen typical for pneumonia and there is no large pleural effusion. No pneumothorax is seen. The skeletal structures are osteopenic. Advanced degenerative change and chronic deformity is present in the shoulders. A large calcified joint body is present on the right. An aortic stent graft is partially imaged in the upper abdomen. IMPRESSION: 1. Cardiomegaly with mild pulmonary vascular congestion. 2. Low lung volumes with no airspace consolidation typical for pneumonia or large pleural effusion. Electronically signed by: Paul Schmidt M.D. 08/06/2016 2:11 PM Dictated Date/Time: 08/06/2016 2:[address] CT DOSE: HISTORY: Altered mental status. TECHNIQUE: Multiaxial CT images of the head were performed without the use of intravenous contrast. Automated exposure control was utilized for this study. Comparison: Head CT 07/07/2016. Findings: The paranasal sinuses and mastoid air cells are clear. The calvarium and skull base are intact. There is no mass, hematoma, midline shift, acute infarct. White matter hypodensity is nonspecific but suggestive of microvascular ischemic change. The ventricles and sulci demonstrate mild age-related involutional changes. Impression: No significant change compared to the prior study. No acute intracranial abnormality. Electronically signed by: Martin Juares M.D. 08/06/2016 4:20 PM Dictated Date/Time: 08/06/2016 4:18 PM ABDOMEN AND PELVIS CT WITHOUT CONTRAST CT DOSE: 2178.11 mGy.cm HISTORY: Urinary tract infection. TECHNIQUE: Multiaxial CT images of the abdomen and pelvis were performed without contrast. COMPARISON STUDY: Abdomen CT 10/10/2014. FINDINGS: Mild dependent changes seen at the lung bases. No pneumoperitoneum. No pneumatosis. No suspicious lytic or blastic osseous lesions. The unenhanced liver, gallbladder, spleen, adrenal glands, and pancreas are unremarkable. Mild atrophic left kidney containing a 1.6 cm hypodense lesion. This is similar to the prior study and favors a cyst. No renal, ureteral, or bladder stones. Small left-sided bladder diverticulum. No bladder wall thickening. Mild right hydronephrosis with urothelial thickening within the right renal collecting system and right ureter. There is also right perinephric fat stranding/edema. The appears to be a 6.3 cm mass within the lower pole the right kidney. This is increased in size from the prior study when it measured 4.2 cm. No retroperitoneal lymphadenopathy. Aortobiiliac stent graft repair of abdominal aortic aneurysm is again noted. The aneurysm sac measures approximate 4.2 cm. This is slightly decreased in size compared to the prior study. Small fat-containing umbilical hernia. Atrophy of the left psoas muscle. Suboptimal evaluation for bowel pathology due to the lack of intravenous and oral contrast. However, there is no definite bowel wall thickening or obstruction. IMPRESSION: 1. Increase in size in the 6.3 cm mass within the lower pole of the right kidney. This is highly suspicious for renal cell carcinoma. 2. Interval development of right perinephric fat stranding/edema with urothelial thickening and mild right hydronephrosis. There are no renal or ureteral stones. Therefore, this could represent a recently passed stone versus pyelonephritis. 3. No definite bowel wall thickening or obstruction. 4. Additional findings as described above. Electronically signed by: Martin Juares M.D. 08/06/2016 4:35 PM Dictated Date/Time: 08/06/2016 4:26 PM Laboratory Results 08/06/16 14:45 Red Blood Count 3.56, Mean Corpuscular Volume 92.1, Mean Corpuscular Hemoglobin 30.6, Mean Corpuscular Hemoglobin Concent 33.2, Mean Platelet Volume 9.1, Neutrophils (%) (Auto) 90.1, Lymphocytes (%) (Auto) 2.7, Monocytes (%) (Auto) 6.7, Eosinophils (%) (Auto) 0.0, Basophils (%) (Auto) 0.1, Neutrophils # (Auto) 14.47, Lymphocytes # (Auto) 0.43, Monocytes # (Auto) 1.08, Eosinophils # (Auto) 0.00, Basophils # (Auto) 0.01 08/06/16 14:45 Test 08/06/16 14:25 08/06/16 14:45 08/06/16 14:50 08/06/16 14:59 Urine Color BROWN Urine Appearance CLOUDY (CLEAR) Urine pH 8.0 (4.5-7.5) Urine Specific [place] 1.015 (1.000-1.030) Urine Protein 3+ (NEG) Urine Glucose (UA) NEG (NEG) Urine Ketones NEG (NEG) Urine Occult Blood 3+ (NEG) Urine Nitrite POS (NEG) Urine Bilirubin NEG (NEG) Urine Urobilinogen NEG (NEG) Urine Leukocyte Esterase LARGE (NEG) Urine RBC >30 /hpf (0-4) Urine WBC >30 /hpf (0-5) Urine Epithelial Cells 5-10 /lpf (0-5) Urine Bacteria 4+ (NEG) Urine Mucus PRESENT (NONE PRSENT) White Blood Count 16.05 K/uL (4.8-10.8) Red Blood Count 3.56 M/uL (4.2-5.4) Hemoglobin 10.9 g/dL (12.0-16.0) Hematocrit 32.8 % (37-47) Mean Corpuscular Volume 92.1 fL (80-100) Mean Corpuscular Hemoglobin 30.6 pg (25-34) Mean Corpuscular Hemoglobin Concent 33.2 g/dl (32-36) Platelet Count 319 K/uL (130-400) Mean Platelet Volume 9.1 fL (7.4-10.4) Neutrophils (%) (Auto) 90.1 % Lymphocytes (%) (Auto) 2.7 % Monocytes (%) (Auto) 6.7 % Eosinophils (%) (Auto) 0.0 % Basophils (%) (Auto) 0.1 % Neutrophils # (Auto) 14.47 K/uL (1.4-6.5) Lymphocytes # (Auto) 0.43 K/uL (1.2-3.4) Monocytes # (Auto) 1.08 K/uL (0.11-0.59) Eosinophils # (Auto) 0.00 K/uL (0-0.5) Basophils # (Auto) 0.01 K/uL (0-0.2) RDW Standard Deviation 51.1 fL (36.4-46.3) RDW Coefficient of Variation 15.2 % (11.5-14.5) Immature Granulocyte % (Auto) 0.4 % Immature Granulocyte # (Auto) 0.06 K/uL (0.00-0.02) Erythrocyte Sedimentation Rate > 90 mm/hr (0-21) Prothrombin Time 11.8 SECONDS (9.0-12.0) Prothromb Time International Ratio 1.1 (0.9-1.1) Activated Partial Thromboplast Time 33.8 SECONDS (21.0-31.0) Partial Thromboplastin Ratio 1.3 Anion Gap 9.0 mmol/L (3-11) Est Creatinine Clear Calc Drug Dose 22.3 ml/min Estimated GFR () 23.5 Estimated GFR (Non- 20.3 BUN/Creatinine Ratio 17.9 (10-20) Calcium Level 8.9 mg/dl (8.5-10.1) Phosphorus Level 3.4 mg/dl (2.5-4.9) Magnesium Level 2.6 mg/dl (1.8-2.4) Total Bilirubin 0.5 mg/dl (0.2-1) Aspartate Amino Transf (AST/SGOT) 11 U/L (15-37) Alanine Aminotransferase (ALT/SGPT) 10 U/L (12-78) Alkaline Phosphatase 111 U/L (45-117) Total Creatine Kinase 56 U/L (26-192) Creatine Kinase MB < 0.5 ng/ml (0.5-3.6) Creatine Kinase MB Ratio (0-3.0) Troponin I 0.179 ng/ml (0-0.045) C-Reactive Protein 22.90 mg/dl (0-0.29) Pro-B-Type Natriuretic Peptide 18387 pg/ml (0-900) Total Protein 8.8 gm/dl (6.4-8.2) Albumin 3.2 gm/dl (3.4-5.0) Globulin 5.6 gm/dl (2.5-4.0) Albumin/Globulin Ratio 0.6 (0.9-2) Lipase 75 U/L (73-393) Carbamazepine (Tegretol) Level 9.7 mcg/ml (4-12) Venous Blood pH 7.41 (7.36-7.41) Venous Blood Partial Pressure CO2 39 mmHg (38.0-50.0) Venous Blood Partial Pressure O2 50 mmHg Venous Blood HCO3 24 meq/L Venous Blood Oxygen Saturation 82.4 % Venous Blood Base Excess -0.3 mmol/L Ammonia < 10.0 umol/L (11-32) Bedside Lactic Acid Venous 0.58 mmol/L (0.90-1.70) Test 08/06/16 18:52 Laboratory results per my review. Medications Administered Medications (Trade) Dose Ordered Sig/Regla Route Start Time Stop Time Status Last Admin Dose Admin Ceftriaxone Sodium (Rocephin Inj) 1 gm NOW STAT IV 08/06/16 14:41 08/06/16 14:43 DC 08/06/16 15:23 1 GM Acetaminophen 975 mg [address] 08/06/16 14:41 08/06/16 14:43 DC 08/06/16 15:24 975 MG Sodium Chloride (Nss 1000ml) 1,000 ml @ 999 mls/hr Q1H1M STAT IV 08/06/16 15:50 08/06/16 16:50 DC 08/06/16 15:50 999 MLS/HR ECG Indication: weakness Rate (beats per minute): 85 Rhythm: normal sinus Findings: T-wave inversion (diffuse), no ectopy, other (LVH noted by voltage criteria) Comparison ECG Date: increased rate otherwise no significant change from July 09 of this year ED Course 1334: The patient was evaluated in room A8. A limited history and examination was performed. 1441: Ordered Tylenol Supp [address], Rocephin Inj 1 gm IV. 1546: I reevaluated the patient and she is lying in bed. 1550: Ordered NSS 1000 ml @ 999 mls/hr IV. 1657: I reevaluated the patient and she is lying in bed. The patient will be evaluated for further treatment. 1700: I discussed the patient with Dr. Norris - [facility] hospitalist . She will evaluate the patient for further treatment. Medical Decision Prior records/ancillary studies reviewed. Triage Nursing notes reviewed. Differential diagnosis: Etiologies such as viral syndrome, otitis, pharyngitis, pneumonia, influenza, meningitis, urinary tract infection, sepsis, bacteremia, as well as others were entertained. The patient is a 76-year-old female who presented to the emergency department for an evaluation of altered mental status. The patient normally is able to discuss her condition but she is very confused at this time. She is only mumbling in short sentences and does not appear to be able to follow commands correctly. The patient was found have a very significant fever. It appears that her urine is the source of her infection at this time. She was treated with IV fluids and IV antibiotics. CT the abdomen and pelvis did reveal abnormalities on the kidney which could be consistent #is as well as a renal mass. I discussed the patient's laboratory and radiographic studies with the on-call [facility] hospitalist group. They've agreed to evaluate the patient in the emergency department for further management and disposition. Consults Time Called: 165 Consulting Physician: Dr. Jr DIAS hospitalist Returned Call: 1700 I discussed the patient with Dr. Jr caban . She will evaluate the patient for further treatment. Impression Primary Impression: Sepsis Additional Impressions: Pyelonephritis Fever Acute kidney injury Scribe Attestation The scribe's documentation has been prepared under my direction and personally reviewed by me in its entirety. I confirm that the note above accurately reflects all work, treatment, procedures, and medical decision making performed by me. Departure Information Dispostion Being Evaluated By Hospitalist Referrals [facility] (PCP) Patient Instructions My [facility] Problem Qualifiers Primary Impression: Sepsis Sepsis type: sepsis due to unspecified organism Qualified Codes: A41.9 - Sepsis, unspecified organism Additional Impressions: Fever Fever type: unspecified Qualified Codes: R50.9 - Fever, unspecified
--- NOTE | 2016-08-06 14:13 | DIAGNOSTIC IMAGING REPORT ---
SINGLE VIEW CHEST CLINICAL HISTORY: Sepsis. FINDINGS: An AP, portable, upright chest radiograph is compared to study dated 07/09/2016. The examination is degraded by portable technique and patient rotation. The heart is enlarged and there is atherosclerotic calcification of the thoracic aorta. The pulmonary vasculature is mildly congested. There are low lung volumes with bibasilar atelectasis. No airspace consolidation is seen typical for pneumonia and there is no large pleural effusion. No pneumothorax is seen. The skeletal structures are osteopenic. Advanced degenerative change and chronic deformity is present in the shoulders. A large calcified joint body is present on the right. An aortic stent graft is partially imaged in the upper abdomen. IMPRESSION: 1. Cardiomegaly with mild pulmonary vascular congestion. 2. Low lung volumes with no airspace consolidation typical for pneumonia or large pleural effusion. Electronically signed by: Paul Schmidt M.D. 08/06/2016 2:11 PM Dictated Date/Time: 08/06/2016 2:09 PM
[2016-08-06] MEDS ORDERED: CEFTRIAXONE SOD INJ 1 GM ADDVIAL IV STA (14:41)
[2016-08-06] MEDS ORDERED: ACETAMINOPHEN 325 MG SUPP PR STA (14:41)
[2016-08-06] MEDS ORDERED: CEFT1INJ57 IM (14:53)
[2016-08-06] MEDS ORDERED: ARTISOL12 OPB (14:57)
[2016-08-06 14:58] LABS: MANUAL MICROSCOPIC REQUIRED? YES; URINE APPEARANCE CLOUDY (CLEAR); URINE BILIRUBIN NEG (NEG); URINE COLOR BROWN; URINE NITRITE POS (NEG); URINE SPECIFIC GRAVITY 1.015 (1.000-1.030); UROBILINOGEN NEG (NEG)
[2016-08-06] MEDS ORDERED: POTA20TA13 PO (14:59)
[2016-08-06 15:02] LABS: REVIEW REQ? NO; SULFASALICYLIC ACID POS (NEG)
[2016-08-06] MEDS ORDERED: SODIENE PR (15:06)
[2016-08-06 15:13] LABS: BASO % 0.1 %; BASO ABS # 0.01 K/uL (0-0.2); COMPLETE YES; HEMATOCRIT 32.8 % (37-47); IG% 0.4 %; LYMPH % 2.7 %; LYMPH ABS # 0.43 K/uL (1.2-3.4); MEAN CELL VOLUME 92.1 fL (80-100); MEAN CORPUSCULAR HEMOGLOBIN 30.6 pg (25-34); MEAN CORPUSCULAR HGB CONC 33.2 g/dl (32-36); MEAN PLATELET VOLUME 9.1 fL (7.4-10.4); MONO % 6.7 %; NEUT % 90.1 %; PLATELET COUNT 319 K/uL (130-400); RED BLOOD COUNT 3.56 M/uL (4.2-5.4); WHITE BLOOD COUNT 16.05 K/uL (4.8-10.8)
[2016-08-06 15:14] LABS: URINE BACTERIA 4+ (NEG); URINE RBC >30 /hpf (0-4); URINE WBC >30 /hpf (0-5)
[2016-08-06 15:15] LABS: URINE MUCUS PRESENT (NONE PRSENT)
[2016-08-06 15:16] LABS: ZZURINE CULT IF INDIC CATH YES
[2016-08-06 15:25] LABS: INR 1.1 (0.9-1.1); PARTIAL THROMBOPLASTIN RATIO 1.3; PROTHROMBIN TIME (PATIENT) 11.8 SECONDS (9.0-12.0)
[2016-08-06 15:33] LABS: VEN BLD GAS O2 SATURATION 82.4 %; VEN BLOOD GAS BASE EXCESS -0.3 mmol/L; VENOUS BLOOD GAS PCO2 39 mmHg (38.0-50.0); VENOUS BLOOD GAS PO2 50 mmHg
[2016-08-06] MEDS ORDERED: SODIUM CHLORIDE 0.9% 1000ML 1,000 ML IV STA (15:50)
[2016-08-06 16:02] LABS: ALT/SGPT 10 U/L (12-78); AST/SGOT 11 U/L (15-37); BLOOD UREA NITROGEN 41 mg/dl (7-18); BUN/CREATININE RATIO 17.9 (10-20); CALCIUM 8.9 mg/dl (8.5-10.1); CARBON DIOXIDE 25 mmol/L (21-32); CHLORIDE 100 mmol/L (98-107); GLUCOSE 128 mg/dl (70-99); MAGNESIUM 2.6 mg/dl (1.8-2.4); SODIUM 134 mmol/L (136-145)
--- NOTE | 2016-08-06 16:22 | DIAGNOSTIC IMAGING REPORT ---
HEAD CT NONCONTRAST CT DOSE: HISTORY: Altered mental status. TECHNIQUE: Multiaxial CT images of the head were performed without the use of intravenous contrast. Automated exposure control was utilized for this study. Comparison: Head CT 07/07/2016. Findings: The paranasal sinuses and mastoid air cells are clear. The calvarium and skull base are intact. There is no mass, hematoma, midline shift, acute infarct. White matter hypodensity is nonspecific but suggestive of microvascular ischemic change. The ventricles and sulci demonstrate mild age-related involutional changes. Impression: No significant change compared to the prior study. No acute intracranial abnormality. Electronically signed by: Martin Juares M.D. 08/06/2016 4:20 PM Dictated Date/Time: 08/06/2016 4:18 PM
[2016-08-06 16:25] LABS: ALB/GLOB RATIO 0.6 (0.9-2); ALKALINE PHOSPHATASE 111 U/L (45-117); PHOSPHORUS 3.4 mg/dl (2.5-4.9)
--- NOTE | 2016-08-06 16:37 | DIAGNOSTIC IMAGING REPORT ---
ABDOMEN AND PELVIS CT WITHOUT CONTRAST CT DOSE: 2178.11 mGy.cm HISTORY: Urinary tract infection. TECHNIQUE: Multiaxial CT images of the abdomen and pelvis were performed without contrast. COMPARISON STUDY: Abdomen CT 10/10/2014. FINDINGS: Mild dependent changes seen at the lung bases. No pneumoperitoneum. No pneumatosis. No suspicious lytic or blastic osseous lesions. The unenhanced liver, gallbladder, spleen, adrenal glands, and pancreas are unremarkable. Mild atrophic left kidney containing a 1.6 cm hypodense lesion. This is similar to the prior study and favors a cyst. No renal, ureteral, or bladder stones. Small left-sided bladder diverticulum. No bladder wall thickening. Mild right hydronephrosis with urothelial thickening within the right renal collecting system and right ureter. There is also right perinephric fat stranding/edema. The appears to be a 6.3 cm mass within the lower pole the right kidney. This is increased in size from the prior study when it measured 4.2 cm. No retroperitoneal lymphadenopathy. Aortobiiliac stent graft repair of abdominal aortic aneurysm is again noted. The aneurysm sac measures approximate 4.2 cm. This is slightly decreased in size compared to the prior study. Small fat-containing umbilical hernia. Atrophy of the left psoas muscle. Suboptimal evaluation for bowel pathology due to the lack of intravenous and oral contrast. However, there is no definite bowel wall thickening or obstruction. IMPRESSION: 1. Increase in size in the 6.3 cm mass within the lower pole of the right kidney. This is highly suspicious for renal cell carcinoma. 2. Interval development of right perinephric fat stranding/edema with urothelial thickening and mild right hydronephrosis. There are no renal or ureteral stones. Therefore, this could represent a recently passed stone versus pyelonephritis. 3. No definite bowel wall thickening or obstruction. 4. Additional findings as described above. Electronically signed by: Martin Juares M.D. 08/06/2016 4:35 PM Dictated Date/Time: 08/06/2016 4:26 PM
[2016-08-06] MEDS ORDERED: ALUMINUM/MAGNESIUM/SIMETH (MAALOX MAX) 30 ML UDC PO PRN (18:00)
[2016-08-06] MEDS ORDERED: ONDANSETRON INJ 2 MG/ML 2 ML VIAL IV PRN (18:00)
[2016-08-06] MEDS ORDERED: MAGNESIUM HYDROXIDE SUSP 30 ML UDC PO PRN (18:00)
[2016-08-06] MEDS ORDERED: POLYETHYLENE (MIRALAX) 17 GM PACK PO PRN (18:00)
[2016-08-06] MEDS ORDERED: HYDROCODONE/ACETAMOPHEN 5/325MG TAB PO PRN (18:00)
[2016-08-06] MEDS ORDERED: ACETAMINOPHEN 325 MG TAB PO PRN (18:00)
--- NOTE | 2016-08-06 18:39 | History and Physical ---
History & Physical Date & Time of Service: Aug 06, 2016 at 18:07 Chief Complaint: Not Eating,Declining Food Primary Care Physician: Jumana Love History of Present Illness Source: patient, clinic records ([facility] records), hospital records This is a 76 y/o female with a history of seizure disorder, depression, anxiety , hypertension, right renal neoplasm, right ankle fracture with chronic nonunion and chronic lower extremity edema who presented to the ED on 08/06 from [facility] with weakness, fevers, decreased appetite, and altered mental status. The patient is very lethargic during my examination, and unable to provide ROS due secondary to mental status. No one at bedside. She was able to deny any current pain, difficulty breathing or feeling feverish. Per report from [facility], the patient was becoming increasingly unresponsive. She is typically able to converse normally. The patient also been declining her food and was reportedly not breathing well. Past Medical/Surgical History Medical Problems: (1) Abdom Aortic Aneurysm Status: Chronic (2) Depressive Disorder Nec Status: Chronic (3) Esophageal Reflux Status: Chronic (4) Hypertension Nos Status: Chronic Family History Omitted secondary to age Unable to obtain family history from patient due to mental status and no family history recorded on [facility] records Social History Smoking Status: Never Smoker Smokeless Tobacco Use: No Alcohol Use: none Drug Use: none Marital Status: Housing status: custodial ([facility]) Occupational Status: retired Immunizations History of Influenza Vaccine: Unknown History of Tetanus Vaccine?: Unknown History of Pneumococcal: Unknown History of Hepatitis B Vaccine: Unknown Multi-Drug Resistant Organisms History of MDRO: Yes Type of MDRO: MRSA Allergies Coded Allergies: No Known Allergies (Verified , 07/07/16) Home Medications Scheduled Artificial Tear Solution (Artificial Tears), 1 DROP OPB QID Bisacodyl (Dulcolax), 5 MG PO BID Carbamazepine (Carbamazepine), 300 MG PO BID Ceftriaxone Sod (Rocephin), 1 GM IM DAILY Cholecalciferol (Vitamin D3), 1,000 UNITS PO DAILY Furosemide (Lasix), 60 MG PO DAILY Lamotrigine (Lamictal), 300 MG PO Q12 Levetiracetam (Levetiracetam), 1,000 MG PO BID Losartan Potassium (Cozaar), 25 MG PO DAILY Potassium Chloride Microencaps (Potassium Chloride Er), 20 MEQ PO DAILY Prune Juice (Prune Juice ), OZ PO PRN UD Ranitidine HCl (Ranitidine HCl), 150 MG PO HS Sodium Phosphate/Biphosphate (Fleet Enema), 1 EA MO UD Scheduled PRN Acetaminophen (Tylenol), 650 MG PO Q6H PRN for Pain or Fever Hydrocodone/Acetaminophen 5MG/325MG ([place] 5MG/325MG), 1 TABLET PO Q4 PRN for MOD PAIN Magnesium Hydroxide (Milk of Magnesia), 30 ML PO DAILY PRN for NO BM FOR 3 DAYS Review of Systems Unable to obtain reliable ROS from patient secondary to mental status. She denies any pain or dyspnea. Physical Exam Vital Signs Date Time Temp Pulse Resp B/P Pulse Ox O2 Delivery O2 Flow Rate FiO2 08/06/16 16:50 86 18 145/94 96 Nasal Cannula 2.0 08/06/16 15:48 40.1 93 14 157/70 94 Nasal Cannula 2.0 08/06/16 14:44 92 08/06/16 14:41 92 Room Air 08/06/16 13:09 37.5 78 26 151/80 91 General Appearance: WD/WN, no apparent distress, + obese (morbidly obese), + pertinent finding (very lethargic but rousable. appears dyspneic) Head: normocephalic, atraumatic Eyes: normal inspection, PERRL, sclerae normal ENT: normal ENT inspection, hearing grossly normal, pharynx normal, + pertinent finding (mouth dry/crusty) Neck: supple, no JVD, trachea midline Respiratory/Chest: lungs clear, normal breath sounds, no respiratory distress Cardiovascular: regular rate, rhythm, no gallop, no murmur Abdomen/GI: normal bowel sounds, non tender, soft Back: + pertinent finding (unable to assess for CVA tenderness) Extremities/Musculoskelatal: no calf tenderness, + swelling (trace pitting edema), + pertinent finding (right ankle deformed secondary to chronic nonunion of previous ankle fracture. Chronic venous stasis changes, right heel and right medial malleolus covered in dressing) Neurologic/Psych: + pertinent finding (lethargic. Unable to assess mood or orientation secondary to AMS) Skin: normal color, warm/dry, no rash Diagnostics Laboratory Results Results Past 24 Hours Test 08/06/16 14:25 4/26/17 14:45 08/06/16 14:50 08/06/16 14:59 Range/Units Urine Color BROWN Urine Appearance CLOUDY CLEAR Urine pH 8.0 4.5-7.5 Urine Specific [place] 1.015 1.000-1.030 Urine Protein 3+ NEG Urine Glucose (UA) NEG NEG Urine Ketones NEG NEG Urine Occult Blood 3+ NEG Urine Nitrite POS NEG Urine Bilirubin NEG NEG Urine Urobilinogen NEG NEG Urine Leukocyte Esterase LARGE NEG Urine RBC >30 0-4 /hpf Urine WBC >30 0-5 /hpf Urine Epithelial Cells 5-10 0-5 /lpf Urine Bacteria 4+ NEG Urine Mucus PRESENT NONE PRSENT White Blood Count 16.05 4.8-10.8 K/uL Red Blood Count 3.56 4.2-5.4 M/uL Hemoglobin 10.9 12.0-16.0 g/dL Hematocrit 32.8 37-47 % Mean Corpuscular Volume 92.1 80-100 fL Mean Corpuscular Hemoglobin 30.6 25-34 pg Mean Corpuscular Hemoglobin Concent 33.2 32-36 g/dl Platelet Count 319 130-400 K/uL Mean Platelet Volume 9.1 7.4-10.4 fL Neutrophils (%) (Auto) 90.1 % Lymphocytes (%) (Auto) 2.7 % Monocytes (%) (Auto) 6.7 % Eosinophils (%) (Auto) 0.0 % Basophils (%) (Auto) 0.1 % Neutrophils # (Auto) 14.47 1.4-6.5 K/uL Lymphocytes # (Auto) 0.43 1.2-3.4 K/uL Monocytes # (Auto) 1.08 0.11-0.59 K/uL Eosinophils # (Auto) 0.00 0-0.5 K/uL Basophils # (Auto) 0.01 0-0.2 K/uL RDW Standard Deviation 51.1 36.4-46.3 fL RDW Coefficient of Variation 15.2 11.5-14.5 % Immature Granulocyte % (Auto) 0.4 % Immature Granulocyte # (Auto) 0.06 0.00-0.02 K/uL Erythrocyte Sedimentation Rate > 90 0-21 mm/hr Prothrombin Time 11.8 9.0-12.0 SECONDS Prothromb Time International Ratio 1.1 0.9-1.1 Activated Partial Thromboplast Time 33.8 21.0-31.0 SECONDS Partial Thromboplastin Ratio 1.3 Sodium Level 134 136-145 mmol/L Potassium Level 4.0 3.5-5.1 mmol/L Chloride Level 100 98-107 mmol/L Carbon Dioxide Level 25 21-32 mmol/L Anion Gap 9.0 3-11 mmol/L Blood Urea Nitrogen 41 7-18 mg/dl Creatinine 2.30 0.60-1.20 mg/dl Est Creatinine Clear Calc Drug Dose 22.3 ml/min Estimated GFR () 23.5 Estimated GFR (Non- 20.3 BUN/Creatinine Ratio 17.9 10-20 Random Glucose 128 70-99 mg/dl Calcium Level 8.9 8.5-10.1 mg/dl Phosphorus Level 3.4 2.5-4.9 mg/dl Magnesium Level 2.6 1.8-2.4 mg/dl Total Bilirubin 0.5 0.2-1 mg/dl Aspartate Amino Transf (AST/SGOT) 11 15-37 U/L Alanine Aminotransferase (ALT/SGPT) 10 12-78 U/L Alkaline Phosphatase 111 45-117 U/L Total Creatine Kinase 56 26-192 U/L Creatine Kinase MB < 0.5 0.5-3.6 ng/ml Creatine Kinase MB Ratio 0-3.0 Troponin I 0.179 0-0.045 ng/ml C-Reactive Protein 22.90 0-0.29 mg/dl Pro-B-Type Natriuretic Peptide 36673 0-900 pg/ml Total Protein 8.8 6.4-8.2 gm/dl Albumin 3.2 3.4-5.0 gm/dl Globulin 5.6 2.5-4.0 gm/dl Albumin/Globulin Ratio 0.6 0.9-2 Lipase 75 73-393 U/L Carbamazepine (Tegretol) Level 9.7 4-12 mcg/ml Venous Blood pH 7.41 7.36-7.41 Venous Blood Partial Pressure CO2 39 38.0-50.0 mmHg Venous Blood Partial Pressure O2 50 mmHg Venous Blood HCO3 24 meq/L Venous Blood Oxygen Saturation 82.4 % Venous Blood Base Excess -0.3 mmol/L Ammonia < 10.0 11-32 umol/L Bedside Lactic Acid Venous 0.58 0.90-1.70 mmol/L Test 08/06/16 18:00 Range/Units Microbiology Results 08/06/16 Blood Culture, Received Pending 08/06/16 Blood Culture, Received Pending 08/06/16 Urine Culture, Received Pending Diagnostic Radiology Reviewed the following studies and agree with interpretation as follows: Patient Name: CHANDRIKA LUO Unit Number: [id number] Dictated: 08/06/161408 Transcribed: 08/06/161408 EV Printed Date/Time: [~ rep prt dt]/[~ rep prt tm] [~ rep ct labl] - [~ rep ct ivnm] [facility] [place] [address] Dictated: 08/06/161408 Transcribed: 08/06/161408 EV Printed Date/Time: [~ rep prt dt]/[~ rep prt tm] [~ rep ct labl] - [~ rep ct ivnm] Patient: CHANDRIKA LUO Address1: [address] [place] [address] Rec: [id number] Address2: [address] [place] Acct ID: [id number] [facility] Zip: [place] [address] Date: 1940 Sex: F Room/Bed: Ref Phy: Fran Whitehead M.D. SC: QUINTEN Jones Phy: Report #: [id number] Isabella Phy: Jumana Love Test: [id number] Admit Phy: Medical Billing Specialist: CURLY Interpreting Phy: Paul Schmidt M.D. Diagnosis: NOT EATING,DECLINING FOOD Ordering Phy: Juan José Leon D.O. Service Date: 08/06/16 Admit Date: 08/06/16 MNE: PWRSCRIBE CONF: DICTATED BY: Paul Schmidt M.D.]] CC: [place] Jeffrey R., Fran Wheeler M.D. Endcc: [~ rep ct add3]] SINGLE VIEW CHEST CLINICAL HISTORY: Sepsis. FINDINGS: An AP, portable, upright chest radiograph is compared to study dated 07/09/2016. The examination is degraded by portable technique and patient rotation. The heart is enlarged and there is atherosclerotic calcification of the thoracic aorta. The pulmonary vasculature is mildly congested. There are low lung volumes with bibasilar atelectasis. No airspace consolidation is seen typical for pneumonia and there is no large pleural effusion. No pneumothorax is seen. The skeletal structures are osteopenic. Advanced degenerative change and chronic deformity is present in the shoulders. A large calcified joint body is present on the right. An aortic stent graft is partially imaged in the upper abdomen. IMPRESSION: 1. Cardiomegaly with mild pulmonary vascular congestion. 2. Low lung volumes with no airspace consolidation typical for pneumonia or large pleural effusion. Electronically signed by: Paul Schmidt M.D. 08/06/2016 2:11 PM Dictated Date/Time: 08/06/2016 2:09 PM The status of this report is Signed. Draft = Not yet reviewed or approved by Radiologist. Signed = Reviewed and approved by Radiologist. <AttendingPhy></AttendingPhy> <FamilyPhy>Fran Whitehead M.D.</FamilyPhy> < PrimaryPhy>[facility]</PrimaryPhy> <UnitNumber>[id number]</UnitNumber> < VisitNumber>[id number]</VisitNumber> <PatientName>CHANDRIKA LUO</ PatientName> <DateOfBirth>1940</DateOfBirth> <Location[place]Location> < ServiceDate>08/06/16</ServiceDate> <MNE>ESINDI</MNE> <OrderingPhy>Juan José Leon D.O.</OrderingPhy> <OrderingPhyMNE>f rep ord dr ford</OrderingPhyMNE> <DictatingPhyMNE>f rep dict dr ford</DictatingPhyMNE> <CCListMNE>f rep ct logan</ CCListMNE> <AdmittingPhyMNE>f pt admit dr ford</AdmittingPhyMNE> <AttendingPhyMNE >f pt attend dr ford</AttendingPhyMNE> <ConsultingPhyMNE>f pt consult dr ford</ConsultingPhyMNE> <FamilyPhyMNE>f pt fam dr ford</FamilyPhyMNE> <OtherPhyMNE>f pt other dr ford</OtherPhyMNE> < PrimaryPhyMNE>f pt prim care dr ford</PrimaryPhyMNE> <ReferringPhyMNE>f pt referring dr ford</ReferringPhyMNE> Patient Name: CHANDRIKA LUO Unit Number: [id number] Dictated: 08/06/161617 Transcribed: 08/06/161617 PA Printed Date/Time: [~ rep prt dt]/[~ rep prt tm] [~ rep ct labl] - [~ rep ct ivnm] [facility] [place] [address] Dictated: 08/06/161617 Transcribed: 08/06/161617 PAJ Printed Date/Time: [~ rep prt dt]/[~ rep prt tm] [~ rep ct labl] - [~ rep ct ivnm] Patient: CHANDRIKA LUO Address1: [address] [place] [address] Rec: [id number] Address2: [facility] Acct ID: [id number] [facility] Zip: [place] [address] Date: 1940 Sex: F Room/Bed: Ref Phy: Fran Whitehead M.D. SC: QUINTEN Att Phy: Report #: [id number] Isabella Phy: Jumana Love Test: HWO Admit Phy: Medical Billing Specialist: LEENA Interpreting Phy: Martin Juares MD Diagnosis: NOT EATING,DECLINING FOOD Ordering Phy: Juan José Leon D.O. Service Date: 08/06/16 Admit Date: 08/06/16 MNE: PWRSCRIBE CONF: DICTATED BY: Martin Juares M.D.]] CC: [facility] Juan José Leon, Fran Wheeler M.D. Endcc: [~ rep ct add3]] HEAD CT NONCONTRAST CT DOSE: HISTORY: Altered mental status. TECHNIQUE: Multiaxial CT images of the head were performed without the use of intravenous contrast. Automated exposure control was utilized for this study. Comparison: Head CT 07/07/2016. Findings: The paranasal sinuses and mastoid air cells are clear. The calvarium and skull base are intact. There is no mass, hematoma, midline shift, acute infarct. White matter hypodensity is nonspecific but suggestive of microvascular ischemic change. The ventricles and sulci demonstrate mild age-related involutional changes. Impression: No significant change compared to the prior study. No acute intracranial abnormality. Electronically signed by: Martin Juares M.D. 08/06/2016 4:20 PM Dictated Date/Time: 08/06/2016 4:18 PM The status of this report is Signed. Draft = Not yet reviewed or approved by Radiologist. Signed = Reviewed and approved by Radiologist. <AttendingPhy></AttendingPhy> <FamilyPhy>Fran Whitehead M.D.</FamilyPhy> < PrimaryPhy>[facility]</PrimaryPhy> <UnitNumber>[id number]</UnitNumber> < VisitNumber>[id number]</VisitNumber> <PatientName>CHANDRIKA LUO</ PatientName> <DateOfBirth>1940</DateOfBirth> <Location>[facility]</Location> < ServiceDate>08/06/16</ServiceDate> <MNE>ESINDI</MNE> <OrderingPhy>Juan José Leon D.O.</OrderingPhy> <OrderingPhyMNE>f rep ord dr ford</OrderingPhyMNE> <DictatingPhyMNE>f rep dict dr ford</DictatingPhyMNE> <CCListMNE>f rep ct mne</ CCListMNE> <AdmittingPhyMNE>f pt admit dr ford</AdmittingPhyMNE> <AttendingPhyMNE >f pt attend dr ford</AttendingPhyMNE> <ConsultingPhyMNE>f pt consult dr ford</ConsultingPhyMNE> <FamilyPhyMNE>f pt fam dr ford</FamilyPhyMNE> <OtherPhyMNE>f pt other dr ford</OtherPhyMNE> < PrimaryPhyMNE>f pt prim care dr ford</PrimaryPhyMNE> <ReferringPhyMNE>f pt referring dr ford</ReferringPhyMNE> Patient Name: CHANDRIKA LUO Unit Number: [id number] Dictated: 08/06/161625 Transcribed: 08/06/161625 [place] Printed Date/Time: [~ rep prt dt]/[~ rep prt tm] [~ rep ct labl] - [~ rep ct ivnm] [facility] [place] [address] Dictated: 08/06/161625 Transcribed: 08/06/161625 PAJ Printed Date/Time: [~ rep prt dt]/[~ rep prt tm] [~ rep ct labl] - [~ rep ct ivnm] Patient: CHANDRIKA LUO Address1: [address] [place] [address] Rec: [id number] Address2: [facility] Acct ID: [id number] [facility] Zip: [place] [address] Date: 1940 Sex: F Room/Bed: Ref Phy: Fran Whitehead M.D. SC: QUINTEN Att Phy: Report #: [id number] Isabella Phy: [place] Test: APWO Admit Phy: Medical Billing Specialist: LEENA Interpreting Phy: Martin Juares MD Diagnosis: NOT EATING,DECLINING FOOD Ordering Phy: Juan José Leon D.O. Service Date: 08/06/16 Admit Date: 08/06/16 MNE: PWRSCRIBE CONF: DICTATED BY: Martin Juares M.D.]] CC: [facility] Juan José Leon, Fran Wheeler M.D. Endcc: [~ rep ct add3]] ABDOMEN AND PELVIS CT WITHOUT CONTRAST CT DOSE: 2178.11 mGy.cm HISTORY: Urinary tract infection. TECHNIQUE: Multiaxial CT images of the abdomen and pelvis were performed without contrast. COMPARISON STUDY: Abdomen CT 10/10/2014. FINDINGS: Mild dependent changes seen at the lung bases. No pneumoperitoneum. No pneumatosis. No suspicious lytic or blastic osseous lesions. The unenhanced liver, gallbladder, spleen, adrenal glands, and pancreas are unremarkable. Mild atrophic left kidney containing a 1.6 cm hypodense lesion. This is similar to the prior study and favors a cyst. No renal, ureteral, or bladder stones. Small left-sided bladder diverticulum. No bladder wall thickening. Mild right hydronephrosis with urothelial thickening within the right renal collecting system and right ureter. There is also right perinephric fat stranding/edema. The appears to be a 6.3 cm mass within the lower pole the right kidney. This is increased in size from the prior study when it measured 4.2 cm. No retroperitoneal lymphadenopathy. Aortobiiliac stent graft repair of abdominal aortic aneurysm is again noted. The aneurysm sac measures approximate 4.2 cm. This is slightly decreased in size compared to the prior study. Small fat-containing umbilical hernia. Atrophy of the left psoas muscle. Suboptimal evaluation for bowel pathology due to the lack of intravenous and oral contrast. However, there is no definite bowel wall thickening or obstruction. IMPRESSION: 1. Increase in size in the 6.3 cm mass within the lower pole of the right kidney. This is highly suspicious for renal cell carcinoma. 2. Interval development of right perinephric fat stranding/edema with urothelial thickening and mild right hydronephrosis. There are no renal or ureteral stones. Therefore, this could represent a recently passed stone versus pyelonephritis. 3. No definite bowel wall thickening or obstruction. 4. Additional findings as described above. Electronically signed by: Martin Juares M.D. 08/06/2016 4:35 PM Dictated Date/Time: 08/06/2016 4:26 PM The status of this report is Signed. Draft = Not yet reviewed or approved by Radiologist. Signed = Reviewed and approved by Radiologist. <AttendingPhy></AttendingPhy> <FamilyPhy>Fran Whitehead M.D.</FamilyPhy> < PrimaryPhy>[facility]</PrimaryPhy> <UnitNumber>[id number]</UnitNumber> < VisitNumber>[id number]</VisitNumber> <PatientName>CHANDRIKA LUO</ PatientName> <DateOfBirth>1940</DateOfBirth> <Location>[facility]</Location> < ServiceDate>08/06/16</ServiceDate> <MNE>ESINDI</MNE> <OrderingPhy>Juan José Leon D.O.</OrderingPhy> <OrderingPhyMNE>f rep ord dr ford</OrderingPhyMNE> <DictatingPhyMNE>f rep dict dr ford</DictatingPhyMNE> <CCListMNE>f rep ct logan</ CCListMNE> <AdmittingPhyMNE>f pt admit dr ford</AdmittingPhyMNE> <AttendingPhyMNE >f pt attend dr ford</AttendingPhyMNE> <ConsultingPhyMNE>f pt consult dr ford</ConsultingPhyMNE> <FamilyPhyMNE>f pt fam dr ford</FamilyPhyMNE> <OtherPhyMNE>f pt other dr ford</OtherPhyMNE> < PrimaryPhyMNE>f pt prim care dr ford</PrimaryPhyMNE> <ReferringPhyMNE>f pt referring dr ford</ReferringPhyMNE> EKG Reviewed EKG and agree with interpretation as follows: 85 bpm, sinus arrhythmia, prolonged QT interval Impression Assessment and Plan 76 y/o female with a history of seizure disorder, depression, anxiety, hypertension, right renal neoplasm, right ankle fracture with chronic nonunion and chronic lower extremity edema who presented to the ED on 08/06 from [facility] with weakness, fevers, decreased appetite, and altered mental status. Patient afebrile on arrival but did develop a temperature of 40.1C. CT of abdomen and pelvis suspicious for right pyelonephritis. WBC elevated at 16.05. Creatinine elevated above baseline at 2.3. ESR and CRP elevated. Point-of- care lactic acid negative. Venous blood gas within normal limits. Ammonia level low. Carbamazepine level within normal limits. UA positive for infection. Patient was given acetaminophen 175 mg per rectum, Rocephin 1 g IV, and 1 L fluid bolus and ED. Sepsis secondary to pyelonephritis--patient sepsis criteria with fever, leukocytosis and source of infection -Admit to telemetry -Urine and blood cultures pending -Rocephin 1 g IV qd. Recent UTI 07/07 positive for Klebsiella oxytoca, sensitive to Rocephin -NSS at 125 cc/hr -Repeat lactic acid at 1800 -Tylenol prn fever -O2 by protocol Altered mental status--likely secondary to sepsis -VBG WNL -Ammonia level low -Sodium very mildly low at 134 -NPO except sips and chips due to mental status and aspiration risk. Can advance diet when more alert JO ANN--baseline creatinine 0.8-1.1 -Creatinine 2.3 on arrival -IVF as above -Continue to monitor Seizure disorder/depression -Continue carbamazepine 300 mg PO BID, Lamictal 300 mg PO BID, Keppra 1000 mg PO BID HTN--stable -Hold losartan due to JO ANN -Cover with hydralazine 10 mg IV q6h prn SBP >180 Chronic lower extremity edema -Hold Lasix for now DVT prophylaxis -Heparin 5000 units SC q12h -SATISH sandoval and SCDs Code Status -Level V, DO NOT RESUSCITATE This chart was completed in part utilizing [employer] Speech Voice Recognition software. Attempts were made to minimize the grammatical errors, random word insertions, pronoun errors and incomplete sentences. Any formal questions or concerns about the content, text or information contained within the body of this dictation should be directly addressed to the provider for clarification. VTE Prophylaxis VTE Risk Assessment Done? Y/N: Yes Risk Level: Moderate Reviewed: Pt Seen/Exam by Me History Pt answers yes/no questions, but no further conversation. Denies n/v, chest pain, SOB, abd pain. Agree with HPI/ROS as noted General Appearance: no apparent distress, obese Respiratory: normal breath sounds, no respiratory distress Cardiovascular: normal peripheral pulses, regular rate, rhythm Gastrointestinal: non tender, soft Extremities: non-tender, no pedal edema Neurologic/Psychiatric: alert (to person, unable to assess further. Answers yes /no questions only) Skin Characteristics: normal color, warm/dry Assessment/Plan Agree with plan as outlined above AMS/fever, likely due to UTI with pyelo Ceftriaxone, noted to be sensitive to this on most recent urine cx Chronically elevated trop, monitor CT AP with increase in size of likely RCC, seen on prior imaging Likely d/c back to CC when able
[2016-08-06 19:09] VITALS: BP 110/68; PULSE 88; TEMP 36.8; O2SAT 96
[2016-08-06] MEDS: SODIUM CHLORIDE 0.9% 1000ML 1,000 ML IV SCH (19:32)
[2016-08-06 20:00] VITALS: BP 110/68; PULSE 88; TEMP 36.8; O2SAT 96; Ht 152.4 cm; Wt 97.8 kg
[2016-08-06] MEDS: HEPARIN SOD 5000 UNIT/0.5 ML CARP SQ SCH (21:29)
[2016-08-06] MEDS: BISACODYL 5 MG TABEC PO SCH (22:24)
[2016-08-06] MEDS: RANITIDINE HCL 150 MG TAB PO SCH (22:26)
[2016-08-06] MEDS: CARBAMAZEPINE 200 MG TAB PO SCH (22:26)
[2016-08-06] MEDS ORDERED: LEVETIRACTAM 1000 MG in DEXTROSE 5% 100ML IV ONE (22:30)
[2016-08-07] VITALS (11 sets, daily range): BP systolic 124–208; BP diastolic 50–107; PULSE 63–93; TEMP 36.6–39.7; O2SAT 91–100
[2016-08-07] MEDS: HydrALAZINE HCL 20 MG/ML VIAL IV. PRN (01:03)
[2016-08-07] MEDS ORDERED: ACETAMINOPHEN IV 100 ML IV PRN (01:30)
[2016-08-07] MEDS: SODIUM CHLORIDE 0.9% 1000ML 1,000 ML IV SCH ×3 (06:15→17:48)
[2016-08-07 06:17] LABS: HEMATOCRIT 31.5 % (37-47); MEAN CELL VOLUME 92.4 fL (80-100); MEAN CORPUSCULAR HEMOGLOBIN 29.6 pg (25-34); MEAN CORPUSCULAR HGB CONC 32.1 g/dl (32-36); MEAN PLATELET VOLUME 9.1 fL (7.4-10.4); PLATELET COUNT 239 K/uL (130-400); RED BLOOD COUNT 3.41 M/uL (4.2-5.4); WHITE BLOOD COUNT 10.89 K/uL (4.8-10.8)
[2016-08-07 06:49] LABS: BUN/CREATININE RATIO 20.6 (10-20); CALCIUM 8.2 mg/dl (8.5-10.1); CREATININE 2.1 mg/dl (0.60-1.20); POTASSIUM 3.3 mmol/L (3.5-5.1)
[2016-08-07 07:08] LABS: BASO % 0.1 %; BASO ABS # 0.01 K/uL (0-0.2); COMPLETE YES; DOHLE BODIES 1+; IG% 0.5 %; LYMPH % 6.4 %; MONO % 5.8 %; NEUT % 87.2 %; TOXIC GRANULATION 1+
--- NOTE | 2016-08-07 08:41 | Clinical Documentation Query ---
Dr. VASQUEZ ANDERS : CLINICAL DOCUMENTATION QUERIES QUERY 1 OF 2 Patient is a 76 year old female admitted for the evaluation and treatment of sepsis secondary to pyelonephritis. Documentation includes "altered mental status". VBG was within normal limits, ammonia level was within normal limits, sodium essentially within normal limits. CT scan of the head was without acute pathology. Altered mental status is the hallmark symptom of encephalopathy. As appropriate, consider documentation as suggested below to enhance severity of illness and associated risk of mortality. Thank you. In your clinical opinion is this patient being managed for: ( ) Metabolic encephalopathy secondary to UTI, treated with IV Rocephin ( ) Other explanation of clinical findings (Please Explain) ( ) Unable to determine (Please Define) ( ) Need to Discuss ( ) Not Agree The medical record reflects the following clinical findings, treatment, and risk factors. Clinical Indicators: As above Treatment: UA, C&S, IV Rocephin, IVF, serial chemistries, antipyretics, supplemental/supportive care Risk Factors: Age, infection, JO ANN QUERY 2 OF 2 Documentation includes "right heel and right medial malleolus covered in dressing". Per H&P and nursing notes, no documented observation of wounds has occurred on this visit. History includes chronic venous stasis. Patient is on Lasix daily at home. As able and appropriate, please consider documentation of etiology of ulcers (pressure, venous stasis, arterial, diabetic, etc. and severity (staging as appropriate) thereof. In your clinical opinion is this patient being managed for: ( ) Venous stasis ulcer of right medial malleolus and right heel ( ) Other explanation of clinical findings (Please Explain) ( ) Unable to determine (Please Define) ( ) Need to Discuss ( ) Not Agree The medical record reflects the following clinical findings, treatment, and risk factors. Clinical Indicators:As above Treatment: Wounds dressed. Risk Factors: Venous stasis, age, ?chronic diastolic CHF Please clarify and document your clinical opinion in the progress notes and discharge summary. Terms such as "probable", "suspected", "likely", "questionable", "possible", or "still to be ruled out" are acceptable. IF IN AGREEMENT, YOU MUST DOCUMENT ABOVE DIAGNOSTIC STATEMENT IN DAILY PROGRESS NOTES AND DISCHARGE SUMMARY. This document is not part of the patient's record. Thank You, Faheem Spann RN [phone]
--- NOTE | 2016-08-07 08:43 | Clinical Documentation Query ---
FIOR COLLADO : CLINICAL DOCUMENTATION QUERY QUERY 1 OF 2 Patient is a 76 year old female admitted for the evaluation and treatment of sepsis secondary to pyelonephritis. Documentation includes "altered mental status". VBG was within normal limits, ammonia level was within normal limits, sodium essentially within normal limits. CT scan of the head was without acute pathology. Altered mental status is the hallmark symptom of encephalopathy. As appropriate, consider documentation as suggested below to enhance severity of illness and associated risk of mortality. Thank you. In your clinical opinion is this patient being managed for: ( ) Metabolic encephalopathy secondary to UTI, treated with IV Rocephin ( ) Other explanation of clinical findings (Please Explain) (X) Unable to determine (Please Define) ( ) Need to Discuss ( ) Not Agree I do not know what her baseline mental status is. The medical record reflects the following clinical findings, treatment, and risk factors. Clinical Indicators: As above Treatment: UA, C&S, IV Rocephin, IVF, serial chemistries, antipyretics, supplemental/supportive care Risk Factors: Age, infection, JO ANN QUERY 2 OF 2 Documentation includes "right heel and right medial malleolus covered in dressing". Per H&P and nursing notes, no documented observation of wounds has occurred on this visit. History includes chronic venous stasis. Patient is on Lasix daily at home. As able and appropriate, please consider documentation of etiology of ulcers (pressure, venous stasis, arterial, diabetic, etc. and severity (staging as appropriate) thereof. In your clinical opinion is this patient being managed for: ( ) Venous stasis ulcer of right medial malleolus and right heel ( ) Other explanation of clinical findings (Please Explain) (x) Unable to determine (Please Define) ( ) Need to Discuss ( ) Not Agree Awaiting information from skilled nursing The medical record reflects the following clinical findings, treatment, and risk factors. Clinical Indicators:As above Treatment: Wounds dressed. Risk Factors: Venous stasis, age, ?chronic diastolic CHF Please clarify and document your clinical opinion in the progress notes and discharge summary. Terms such as "probable", "suspected", "likely", "questionable", "possible", or "still to be ruled out" are acceptable. IF IN AGREEMENT, YOU MUST DOCUMENT ABOVE DIAGNOSTIC STATEMENT IN DAILY PROGRESS NOTES AND DISCHARGE SUMMARY. This document is not part of the patient's record. Thank You, Faheem Spann, RN [phone]
[2016-08-07] MEDS: HEPARIN SOD 5000 UNIT/0.5 ML CARP SQ SCH ×2 (08:50→21:00)
[2016-08-07] MEDS: BISACODYL 5 MG TABEC PO SCH ×2 (09:00→19:35)
[2016-08-07] MEDS: CARBAMAZEPINE 200 MG TAB PO SCH ×2 (09:00→19:37)
[2016-08-07] MEDS: LEVETIRACETAM 500 MG TAB PO SCH ×2 (09:00→10:34)
--- NOTE | 2016-08-07 10:48 | Family Medicine Progress Note ---
Progress Note Date of Service Aug 07, 2016. Subjective Pt evaluation today including: conversation w/ patient, physical exam, chart review, lab review Pain: denies pain 76 y/o female with a history of seizure disorder, depression, anxiety, hypertension, right renal neoplasm, right ankle fracture with chronic nonunion and chronic lower extremity edema who presented to the ED on 08/06 from [facility] with weakness, fevers, decreased appetite, and altered mental status. She appeared to be drowsy with episodes of wakefulness . She however appears disoriented and thinks she is still in [place]. She denies any abdominal pain, nausea, vomiting, dysuria. complained about chills Constitutional: + chills, No fever ENT: No hearing loss Respiratory: No cough, No sputum Cardiovascular: No chest pain Abdomen: No diarrhea, No nausea, No pain, No vomiting Female : No dysuria Medications Current Inpatient Medications Medications (Trade) Dose Ordered Sig/Regla Route Start Time Stop Time Status Last Admin Dose Admin Heparin Sodium (Porcine) 5000 unit 5,000 unit Q12 SQ 08/06/16 21:00 09/05/16 20:59 08/07/16 08:50 5,000 UNIT Sodium Chloride (Nss 1000ml) 1,000 ml @ 125 mls/hr Q8H IV 08/06/16 17:48 09/05/16 17:47 08/07/16 06:15 125 MLS/HR Acetaminophen (Tylenol Tab) 650 mg Q4H PRN PO 08/06/16 18:00 09/05/16 17:59 Al Hydrox/Mg Hydrox/Simethicone (Maalox Max Susp) 15 ml Q4H PRN PO 08/06/16 18:00 09/05/16 17:59 Magnesium Hydroxide (Milk Of Magnesia Susp) 30 ml Q12H PRN PO 08/06/16 18:00 09/05/16 17:59 Ondansetron HCl (Zofran Inj) 4 mg Q6H PRN IV 08/06/16 18:00 09/05/16 17:59 Polyethylene (Miralax Powder Packet) 17 gm DAILY PRN PO 08/06/16 18:00 09/05/16 17:59 Bisacodyl (Dulcolax Tab) 5 mg BID PO 08/06/16 21:00 09/05/16 20:59 Carbamazepine (Tegretol Tab) 300 mg BID PO 08/06/16 21:00 09/05/16 20:59 Acetaminophen/ Hydrocodone Bitart ([place] 5/325 Tab) 1 tab Q4H PRN PO 08/06/16 18:00 08/20/16 17:59 Lamotrigine (Lamictal Tab) 300 mg Q12 PO 08/06/16 21:00 09/05/16 20:59 Ranitidine HCl (zANTac TAB) 150 mg HS PO 08/06/16 21:00 09/05/16 20:59 Levetiracetam (Keppra Tab) 1,000 mg BID PO 08/06/16 21:00 09/05/16 20:59 Future hold Hydralazine HCl 10 mg 10 mg Q6H PRN IV. 08/06/16 18:15 09/05/16 18:14 08/07/16 01:03 10 MG Ceftriaxone Sodium 1 gm/ Dextrose 50 ml @ 100 mls/hr Q24H IV 08/07/16 15:00 08/15/16 15:29 Acetaminophen (Ofirmev Iv) 100 ml @ 400 mls/hr Q8H PRN IV 08/07/16 01:30 09/06/16 01:29 08/07/16 06:15 400 MLS/HR Objective Vital Signs Date Time Temp Pulse Resp B/P Pulse Ox O2 Delivery O2 Flow Rate FiO2 08/07/16 08:00 Nasal Cannula 2.0 08/07/16 07:40 36.7 63 20 151/73 100 Nasal Cannula 2.0 08/07/16 04:15 38.5 88 29 124/68 97 Nasal Cannula 2.0 08/07/16 04:00 Nasal Cannula 2.0 08/07/16 00:50 39.7 08/07/16 00:43 198/84 08/07/16 00:34 208/90 08/07/16 00:24 37.8 92 24 156/107 91 Nasal Cannula 2.0 08/06/16 23:59 Nasal Cannula 2.0 08/06/16 20:00 36.8 88 18 110/68 96 Nasal Cannula 2.0 08/06/16 19:09 36.8 88 18 110/68 96 Nasal Cannula 2.0 08/06/16 18:52 39.6 91 20 169/90 96 08/06/16 16:50 86 18 145/94 96 Nasal Cannula 2.0 08/06/16 15:48 40.1 93 14 157/70 94 Nasal Cannula 2.0 08/06/16 14:44 92 08/06/16 14:41 92 Room Air 08/06/16 13:09 37.5 78 26 151/80 91 Physical Exam General Appearance: WD/WN, no apparent distress ENT: hearing grossly normal Neck: supple Respiratory/Chest: chest non-tender, lungs clear, normal breath sounds, no respiratory distress, no accessory muscle use Cardiovascular: regular rate, rhythm Abdomen: normal bowel sounds, non tender, soft Extremities: + pertinent finding (right foot/heel malunion) Neurologic/Psychiatric: alert, + disoriented Skin: normal color Laboratory Results 08/07/16 05:30 Red Blood Count 3.41, Mean Corpuscular Volume 92.4, Mean Corpuscular Hemoglobin 29.6, Mean Corpuscular Hemoglobin Concent 32.1, Mean Platelet Volume 9.1, Neutrophils (%) (Auto) 87.2, Lymphocytes (%) (Auto) 6.4, Monocytes (%) (Auto) 5.8, Eosinophils (%) (Auto) 0.0, Basophils (%) (Auto) 0.1, Neutrophils # (Auto) 9.50, Lymphocytes # (Auto) 0.70, Monocytes # (Auto) 0.63, Eosinophils # (Auto) 0.00, Basophils # (Auto) 0.01 08/07/16 05:30 Test 08/06/16 14:25 08/06/16 14:45 08/06/16 14:50 08/06/16 14:59 Urine Color BROWN Urine Appearance CLOUDY (CLEAR) Urine pH 8.0 (4.5-7.5) Urine Specific Halliday 1.015 (1.000-1.030) Urine Protein 3+ (NEG) Urine Glucose (UA) NEG (NEG) Urine Ketones NEG (NEG) Urine Occult Blood 3+ (NEG) Urine Nitrite POS (NEG) Urine Bilirubin NEG (NEG) Urine Urobilinogen NEG (NEG) Urine Leukocyte Esterase LARGE (NEG) Urine RBC >30 /hpf (0-4) Urine WBC >30 /hpf (0-5) Urine Epithelial Cells 5-10 /lpf (0-5) Urine Bacteria 4+ (NEG) Urine Mucus PRESENT (NONE PRSENT) Erythrocyte Sedimentation Rate > 90 mm/hr (0-21) Prothrombin Time 11.8 SECONDS (9.0-12.0) Prothromb Time International Ratio 1.1 (0.9-1.1) Activated Partial Thromboplast Time 33.8 SECONDS (21.0-31.0) Partial Thromboplastin Ratio 1.3 Phosphorus Level 3.4 mg/dl (2.5-4.9) Magnesium Level 2.6 mg/dl (1.8-2.4) Total Bilirubin 0.5 mg/dl (0.2-1) Aspartate Amino Transf (AST/SGOT) 11 U/L (15-37) Alanine Aminotransferase (ALT/SGPT) 10 U/L (12-78) Alkaline Phosphatase 111 U/L (45-117) Total Creatine Kinase 56 U/L (26-192) Creatine Kinase MB < 0.5 ng/ml (0.5-3.6) Creatine Kinase MB Ratio (0-3.0) Troponin I 0.179 ng/ml (0-0.045) C-Reactive Protein 22.90 mg/dl (0-0.29) Pro-B-Type Natriuretic Peptide 90129 pg/ml (0-900) Total Protein 8.8 gm/dl (6.4-8.2) Albumin 3.2 gm/dl (3.4-5.0) Globulin 5.6 gm/dl (2.5-4.0) Albumin/Globulin Ratio 0.6 (0.9-2) Lipase 75 U/L (73-393) Carbamazepine (Tegretol) Level 9.7 mcg/ml (4-12) Venous Blood pH 7.41 (7.36-7.41) Venous Blood Partial Pressure CO2 39 mmHg (38.0-50.0) Venous Blood Partial Pressure O2 50 mmHg Venous Blood HCO3 24 meq/L Venous Blood Oxygen Saturation 82.4 % Venous Blood Base Excess -0.3 mmol/L Ammonia < 10.0 umol/L (11-32) Bedside Lactic Acid Venous 0.58 mmol/L (0.90-1.70) Test 08/06/16 18:52 08/07/16 05:30 Lactic Acid Level 1.3 mmol/L (0.4-2.0) White Blood Count 10.89 K/uL (4.8-10.8) Red Blood Count 3.41 M/uL (4.2-5.4) Hemoglobin 10.1 g/dL (12.0-16.0) Hematocrit 31.5 % (37-47) Mean Corpuscular Volume 92.4 fL (80-100) Mean Corpuscular Hemoglobin 29.6 pg (25-34) Mean Corpuscular Hemoglobin Concent 32.1 g/dl (32-36) Platelet Count 239 K/uL (130-400) Mean Platelet Volume 9.1 fL (7.4-10.4) Neutrophils (%) (Auto) 87.2 % Lymphocytes (%) (Auto) 6.4 % Monocytes (%) (Auto) 5.8 % Eosinophils (%) (Auto) 0.0 % Basophils (%) (Auto) 0.1 % Neutrophils # (Auto) 9.50 K/uL (1.4-6.5) Lymphocytes # (Auto) 0.70 K/uL (1.2-3.4) Monocytes # (Auto) 0.63 K/uL (0.11-0.59) Eosinophils # (Auto) 0.00 K/uL (0-0.5) Basophils # (Auto) 0.01 K/uL (0-0.2) RDW Standard Deviation 52.2 fL (36.4-46.3) RDW Coefficient of Variation 15.4 % (11.5-14.5) Immature Granulocyte % (Auto) 0.5 % Immature Granulocyte # (Auto) 0.05 K/uL (0.00-0.02) Toxic Granulation 1+ Dohle Bodies 1+ Anion Gap 10.0 mmol/L (3-11) Est Creatinine Clear Calc Drug Dose 24.1 ml/min Estimated GFR () 26.2 Estimated GFR (Non- 22.6 BUN/Creatinine Ratio 20.6 (10-20) Calcium Level 8.2 mg/dl (8.5-10.1) Assessment and Plan 76 y/o female with a history of seizure disorder, depression, anxiety, hypertension, right renal neoplasm, right ankle fracture with chronic nonunion and chronic lower extremity edema who presented to the ED on 08/06 from [facility] with weakness, fevers, decreased appetite, and altered mental status. was febrile last night Bacteremia likely sec to UTI - BCX2 positive for gram positive cocci and gram negative bacilli - Ct abd/pelvis: suggestive of pyelonephritis with fat stranding - Recent UTI 07/07 positive for Klebsiella oxytoca, sensitive to Rocephin, was on Rocephin but was switched to Zosyn later today - NSS at 125 mls/hr Altered mental status--likely secondary to bacteremia from UTI. ?baseline dementia - Speech eval done due to concerns of aspiration - appreciate recommendations JO ANN--baseline creatinine 0.8-1.1 -Creatinine at 2.1 from 2.3 on arrival - Continue IVF , monitor - avoid nephrotoxins Seizure disorder -Continue carbamazepine 300 mg PO BID, Lamictal 300 mg PO BID, Keppra 1000 mg PO BID( was switched to IV but can be PO after speech recs) RCC: CT : 6.3 cm mass on lower pole of right kidney concerning for RCC -increased in size HTN--stable - Losartan currently held -Cover with hydralazine 10 mg IV q6h prn SBP >180 Chronic lower extremity edema -lasix currently held DVT prophylaxis -Heparin 5000 units SC q12h -SATISH sandoval and SCDs Code Status -Level V, DO NOT RESUSCITATE Resident Physician Supervision Note: I was present with Dr. Worthington during the history and exam. I discussed the case with the resident and agree with the findings and plan as documented in the note. Any exceptions or clarifications are listed here: The patient remains hemodynamically stable - actually slightly hypertensive - however she has 2/2 positive blood cultures and as such will change antibiotic therapy after discussion with clinical pharmacology to Zosyn. Continue gentle fluids but have to be very of volume overload; my examination today, she appeared euvolemic. Documented By: Oj Akhtar Continued [facility] stay due to: fever Discharge planning: custodial facility Resident Tracking Resident Involvement: Resident Care Provided Care Provided: Adult Hospital Medicine
[2016-08-07] MEDS: POTASSIUM CHLR 10 MEQ / WTR 10 MEQ in PREMIXED WATER 100 ML IV SCH ×2 (11:17→16:01)
[2016-08-07] MEDS: LEVETIRACTAM 1000 MG in DEXTROSE 5% 100ML IV SCH ×2 (11:18→23:10)
[2016-08-07] MEDS ORDERED: CEFTRIAXONE SOD INJ 1 GM in DEXTROSE 5% ADD-VANTAGE 50ML 50 ML IV SCH (15:00)
[2016-08-07] MEDS ORDERED: PIPERACILL/TAZOBAC IV 3.375 GM in DEXTROSE 5% 100ML IV ONE (19:15)
[2016-08-07] MEDS ORDERED: PIPERACILL/TAZOBAC CONSULT ACTIVE PRN (19:15)
[2016-08-07] MEDS: RANITIDINE HCL 150 MG TAB PO SCH (19:36)
[2016-08-08] MEDS: SODIUM CHLORIDE 0.9% 1000ML 1,000 ML IV SCH ×3 (01:57→18:42)
[2016-08-08] MEDS: PIPERACILL/TAZOBAC IV 3.375 GM in DEXTROSE 5% 100ML 100 ML IV SCH ×2 (01:57→10:27)
[2016-08-08 03:47] VITALS: BP 147/68; PULSE 56; TEMP 36.6; O2SAT 97
[2016-08-08 06:44] LABS: BASO % 0.3 %; BASO ABS # 0.02 K/uL (0-0.2); EOS % 1.6 %; IG% 0.3 %; LYMPH % 14.5 %; LYMPH ABS # 0.98 K/uL (1.2-3.4); MEAN CELL VOLUME 93.4 fL (80-100); MEAN CORPUSCULAR HEMOGLOBIN 30.1 pg (25-34); MEAN CORPUSCULAR HGB CONC 32.2 g/dl (32-36); MEAN PLATELET VOLUME 9.4 fL (7.4-10.4); MONO % 9.2 %; NEUT % 74.1 %; PLATELET COUNT 210 K/uL (130-400); RED BLOOD COUNT 2.89 M/uL (4.2-5.4); WHITE BLOOD COUNT 6.75 K/uL (4.8-10.8)
[2016-08-08 07:22] LABS: BUN/CREATININE RATIO 23.6 (10-20); CALCIUM 8.1 mg/dl (8.5-10.1); CREATININE 1.8 mg/dl (0.60-1.20); POTASSIUM 3.5 mmol/L (3.5-5.1)
[2016-08-08] MEDS: CARBAMAZEPINE 200 MG TAB PO SCH ×2 (07:43→21:08)
[2016-08-08 07:44] LABS: COMPLETE YES; DOHLE BODIES 1+
[2016-08-08] MEDS: HEPARIN SOD 5000 UNIT/0.5 ML CARP SQ SCH ×2 (07:48→21:11)
[2016-08-08] MEDS: BISACODYL 5 MG TABEC PO SCH ×2 (07:48→21:00)
[2016-08-08 08:22] VITALS: BP 123/63; PULSE 68; TEMP 36.6; O2SAT 94
--- NOTE | 2016-08-08 10:44 | Family Medicine Progress Note ---
Progress Note Date of Service Aug 08, 2016. Subjective Pain: denies pain PO Intake: good Voiding: fuentes catheter in place 76 y/o female with a history of seizure disorder, depression, anxiety, hypertension, right renal neoplasm, right ankle fracture with chronic nonunion and chronic lower extremity edema who presented to the ED on 08/06 from [facility] with weakness, fevers, decreased appetite, and altered mental status. Looks a lot better today. She states that she feels great and she is aware that she is at [facility]. Denies any pain, fevers/chills, dysuria, nausea or vomiting. Denies any chest pain, shortness of breath, palpitations. Constitutional: No chills, No fever Eyes: No worsening of vision ENT: No hearing loss Respiratory: No cough, No sputum Cardiovascular: No chest pain Abdomen: No GI bleeding, No diarrhea, No nausea, No pain, No vomiting Musculoskeletal: No joint pain Female : No dysuria Neurologic: No memory loss Psychiatric: No depression symptoms Heme: No abnormal bleeding/bruising Medications Current Inpatient Medications Medications (Trade) Dose Ordered Sig/Regla Route Start Time Stop Time Status Last Admin Dose Admin Heparin Sodium (Porcine) 5000 unit 5,000 unit Q12 SQ 08/06/16 21:00 09/05/16 20:59 08/08/16 07:48 5,000 UNIT Sodium Chloride (Nss 1000ml) 1,000 ml @ 125 mls/hr Q8H IV 08/06/16 17:48 09/05/16 17:47 08/08/16 10:27 125 MLS/HR Acetaminophen (Tylenol Tab) 650 mg Q4H PRN PO 08/06/16 18:00 09/05/16 17:59 Al Hydrox/Mg Hydrox/Simethicone (Maalox Max Susp) 15 ml Q4H PRN PO 08/06/16 18:00 09/05/16 17:59 Magnesium Hydroxide (Milk Of Magnesia Susp) 30 ml Q12H PRN PO 08/06/16 18:00 09/05/16 17:59 Ondansetron HCl (Zofran Inj) 4 mg Q6H PRN IV 08/06/16 18:00 09/05/16 17:59 Polyethylene (Miralax Powder Packet) 17 gm DAILY PRN PO 08/06/16 18:00 09/05/16 17:59 Bisacodyl (Dulcolax Tab) 5 mg BID PO 08/06/16 21:00 09/05/16 20:59 Carbamazepine (Tegretol Tab) 300 mg BID PO 08/06/16 21:00 09/05/16 20:59 08/08/16 07:43 300 MG Acetaminophen/ Hydrocodone Bitart ([place] 5/325 Tab) 1 tab Q4H PRN PO 08/06/16 18:00 08/20/16 17:59 Lamotrigine (Lamictal Tab) 300 mg Q12 PO 08/06/16 21:00 09/05/16 20:59 08/08/16 07:43 300 MG Ranitidine HCl (zANTac TAB) 150 mg HS PO 08/06/16 21:00 09/05/16 20:59 08/07/16 19:36 150 MG Hydralazine HCl 10 mg 10 mg Q6H PRN IV. 08/06/16 18:15 09/05/16 18:14 08/07/16 01:03 10 MG Acetaminophen 100 ml @ 400 mls/hr Q8H PRN IV 08/07/16 01:30 09/06/16 01:29 08/07/16 06:15 400 MLS/HR Levetiracetam 1000 mg/Dextrose 110 ml @ 440 mls/hr Q12H IV 08/07/16 11:00 09/06/16 10:59 08/07/16 23:10 440 MLS/HR Piperacillin Sod/ Tazobactam Sod/ Dextrose (Zosyn Iv/D5 100ml) 115 ml @ 28.75 mls/ hr Q8H IV 08/08/16 02:00 08/18/16 01:59 08/08/16 10:27 28.75 MLS/HR Piperacillin Sod/ Tazobactam Sod (Consult) 1 ea UD PRN N/A 08/07/16 19:15 09/06/16 19:14 Objective Vital Signs Date Time Temp Pulse Resp B/P Pulse Ox O2 Delivery O2 Flow Rate FiO2 08/08/16 08:22 36.6 68 18 123/63 94 Room Air 08/08/16 08:00 Room Air 08/08/16 04:10 Room Air 08/08/16 03:47 36.6 56 20 147/68 97 Room Air 08/08/16 00:01 Room Air 08/07/16 23:52 36.6 67 20 137/58 93 Room Air 08/07/16 20:10 37.6 93 20 159/99 95 Room Air 08/07/16 20:00 Room Air 08/07/16 16:40 37.3 72 20 154/50 92 Room Air 08/07/16 16:00 Room Air 08/07/16 12:47 162/84 08/07/16 12:00 Nasal Cannula 2.0 08/07/16 11:19 36.9 70 20 178/86 100 Nasal Cannula 2.0 Physical Exam General Appearance: WD/WN, no apparent distress Eyes: normal inspection ENT: normal ENT inspection, hearing grossly normal Neck: supple Respiratory/Chest: chest non-tender, lungs clear, normal breath sounds, no respiratory distress, no accessory muscle use Cardiovascular: regular rate, rhythm Abdomen: normal bowel sounds, non tender, soft Extremities: + pertinent finding (Right foot malunion from old fracture) Laboratory Results 08/08/16 06:00 Red Blood Count 2.89, Mean Corpuscular Volume 93.4, Mean Corpuscular Hemoglobin 30.1, Mean Corpuscular Hemoglobin Concent 32.2, Mean Platelet Volume 9.4, Neutrophils (%) (Auto) 74.1, Lymphocytes (%) (Auto) 14.5, Monocytes (%) (Auto) 9.2, Eosinophils (%) (Auto) 1.6, Basophils (%) (Auto) 0.3, Neutrophils # (Auto) 5.00, Lymphocytes # (Auto) 0.98, Monocytes # (Auto) 0.62, Eosinophils # (Auto) 0.11, Basophils # (Auto) 0.02 08/08/16 06:00 Test 08/08/16 06:00 White Blood Count 6.75 K/uL (4.8-10.8) Red Blood Count 2.89 M/uL (4.2-5.4) Hemoglobin 8.7 g/dL (12.0-16.0) Hematocrit 27.0 % (37-47) Mean Corpuscular Volume 93.4 fL (80-100) Mean Corpuscular Hemoglobin 30.1 pg (25-34) Mean Corpuscular Hemoglobin Concent 32.2 g/dl (32-36) Platelet Count 210 K/uL (130-400) Mean Platelet Volume 9.4 fL (7.4-10.4) Neutrophils (%) (Auto) 74.1 % Lymphocytes (%) (Auto) 14.5 % Monocytes (%) (Auto) 9.2 % Eosinophils (%) (Auto) 1.6 % Basophils (%) (Auto) 0.3 % Neutrophils # (Auto) 5.00 K/uL (1.4-6.5) Lymphocytes # (Auto) 0.98 K/uL (1.2-3.4) Monocytes # (Auto) 0.62 K/uL (0.11-0.59) Eosinophils # (Auto) 0.11 K/uL (0-0.5) Basophils # (Auto) 0.02 K/uL (0-0.2) RDW Standard Deviation 52.8 fL (36.4-46.3) RDW Coefficient of Variation 15.4 % (11.5-14.5) Immature Granulocyte % (Auto) 0.3 % Immature Granulocyte # (Auto) 0.02 K/uL (0.00-0.02) Dohle Bodies 1+ Anion Gap 6.0 mmol/L (3-11) Est Creatinine Clear Calc Drug Dose 28.6 ml/min Estimated GFR () 31.6 Estimated GFR (Non- 27.2 BUN/Creatinine Ratio 23.6 (10-20) Calcium Level 8.1 mg/dl (8.5-10.1) Assessment and Plan 76 y/o female with a history of seizure disorder, depression, anxiety, hypertension, right renal neoplasm, right ankle fracture with chronic nonunion and chronic lower extremity edema who presented to the ED on 08/06 from [facility] with weakness, fevers, decreased appetite, and altered mental status. More alert and oriented today . Bacteremia likely sec to UTI - BCX2 positive for staph species and gram negative bacilli - UC positive for proteus - Ct abd/pelvis: suggestive of pyelonephritis with fat stranding - Recent UTI 07/07 positive for Klebsiella oxytoca, sensitive to Rocephin - Currently on Zosyn and vancomycin ,will narrow down based of blood culture sensitivities - TTE ordered - ID consult- appreciate input - NSS at 125 mls/hr Altered mental status-- resolved JO ANN--baseline creatinine 0.8-1.1 - likely sec to dehydration -Creatinine at 1.8 from 2.3 on arrival - Continue IVF , monitor - avoid nephrotoxins Seizure disorder -Continue carbamazepine 300 mg PO BID, Lamictal 300 mg PO BID, Keppra 1000 mg PO BID RCC: CT : 6.3 cm mass on lower pole of right kidney concerning for RCC -increased in size HTN--stable - Losartan currently held due to JO ANN -Cover with hydralazine 10 mg IV q6h prn SBP >180 - Can be restarted once the renal function improves Chronic lower extremity edema -Lasix currently held due to JO ANN - Restart once the renal function improves DVT prophylaxis -Heparin 5000 units SC q12h -SATISH Lane Code Status -Level V, DO NOT RESUSCITATE Disposition: tele. Resident Physician Supervision Note: I interviewed and examined the patient. Discussed with Dr. Worthington and agree with findings and plan as documented in the note. Any exceptions or clarifications are listed here: The patient looks much better today. Upon my visit with her this morning she is awake alert and oriented. She denies any pain or discomfort. Unfortunately , cultures have identified gram-negative bacilli and staph aureus bacteremia. Imaging is also concerning for a pyelonephritis and an enlarging mass suggestive of a renal cell carcinoma. PLAN 1) continue IV Zosyn 2) given staph aureus bacteremia, check transthoracic echocardiogram. 3) consult infectious disease 4) given her improvement, to resume all by mouth medications including her seizure medicines. 5) given her hemodynamic stability, can decrease IV fluids to avoid volume overload. 6) Lasix has been on hold; will need to assess tomorrow and perhaps resumed. Documented By: Oj Akhtar Continued [facility] stay due to: multiple IV medications needed [facility]charge planning: prison facility Resident Tracking Resident Involvement: Resident Care Provided Care Provided: Adult Hospital Medicine
[2016-08-08] MEDS: LEVETIRACETAM 500 MG TAB PO SCH ×2 (11:32→21:07)
[2016-08-08 12:06] VITALS: BP 153/93; PULSE 69; TEMP 36.9; O2SAT 96
--- NOTE | 2016-08-08 12:26 | Medical Consult ---
Consultation Date of Consultation: Aug 08, 2016. Attending Physician: Oj Akhtar D.O. Reason for Consultation: Urosepsis History of Present Illness Patient is a 76-year-old female currently residing at [facility] as an outpatient who presents to the emergency department for evaluation for worsening weakness and altered mental status prior to arrival. The patient also had been noted to have difficulty breathing prior to admission as well. The patient states that she had been feeling poorly for multiple days and her appetite had been decreased. Since admission, the patient was noted to have a white blood cell count of 16.05. ESR was greater than 90. C reactive protein was 22.90. Her creatinine on admission was 2.30. She had blood in urine cultures drawn. Her urine culture is growing Proteus mirabilis which is resistant to Cipro, Levaquin, and Bactrim but otherwise sensitive, and a staph species. Her blood cultures are growing Staph aureus pending sensitivities and gram-negative bacilli. She did have a CT of the abdomen/pelvis which showed a 6.3 cm mass on the lower pole of the right kidney highly suspicious for renal cell carcinoma, and right perinephric stranding/edema with mild right hydronephrosis consistent with possible pyelonephritis. She was started on IV Zosyn, and is tolerating this medication well. She states that she is starting to feel better. She denies further sweats or chills. Past Medical/Surgical History Medical Problems: (1) Acute kidney injury Status: Acute (2) Acute kidney injury Status: Acute (3) Altered mental status Status: Acute (4) Altered mental status Status: Acute (5) Dehydration Status: Acute (6) Elevated troponin Status: Acute (7) Fever Status: Acute (8) Fever Status: Acute (9) Pyelonephritis Status: Acute (10) Seizure Status: Acute (11) Sepsis Status: Acute (12) Sepsis Status: Acute (13) Sepsis Status: Acute (14) Tibial fracture Status: Acute (15) UTI (urinary tract infection) Status: Acute Medical Problems: (1) Abdom Aortic Aneurysm (2) Altered mental state (3) Depressive Disorder Nec (4) Esophageal Reflux (5) Fibula fracture (6) Hypertension Nos (7) SIRS (systemic inflammatory response syndrome) (8) UTI (urinary tract infection) Family History Omitted secondary to age Noncontributory Social History Smoking Status: Unknown if Ever Smoked Smokeless Tobacco Use: No Alcohol Use: none Drug Use: none Marital Status: Housing Status: prison Occupation Status: retired Allergies Coded Allergies: No Known Allergies (Verified , 07/07/16) Home Medications Reported Home Medications Medications Dose Route/Sig Max Daily Dose Days Date Category Dose Instructions Fleet Enema (Sodium Phosphate/Biphosphate) Mable 1 Ea OK UD 08/06/16 Reported GIVE FLEET ENEMA PER RECTUM DAY 4 IF NO BOWEL MOVEMENT Potassium Chloride Er (Potassium Chloride Microencaps) 20 Meq Tab 20 Meq PO DAILY 90 08/06/16 Reported Artificial Tears (Artificial Tear Solution) 1 Dafne Dafne 1 Drop OPB QID 08/06/16 Reported Rocephin (Ceftriaxone Sodium) 1 Gm Inj 1 Gm IM DAILY 08/06/16 Reported Levetiracetam 1,000 Mg Tab 1,000 Mg PO BID 07/07/16 Reported Milk of Magnesia (Magnesium Hydroxide) 30 Ml Susp 30 Ml PO DAILY PRN 07/07/16 Reported Dulcolax (Bisacodyl) 5 Mg Tab 5 Mg PO BID 07/07/16 Reported Prune Juice (Prune) Liqd Oz PO PRN UD 09/08/15 Reported OR STEWED PRUNES IF NO BM 2 DAYS Cozaar (Losartan Potassium) 25 Mg Tab 25 Mg PO DAILY 09/08/15 Reported Ranitidine HCl 150 Mg Tab 150 Mg PO HS 09/08/15 Reported Carbamazepine 200 Mg Tab 300 Mg PO BID 02/23/15 Reported TAKE 1.5 X 200 MG TABLET= 300 MG TWICE A DAY. Lamictal (Lamotrigine) 150 Mg Tab 300 Mg PO Q12 02/23/15 Reported Tylenol (Acetaminophen) 325 Mg Tab 650 Mg PO Q6H PRN 11/25/13 Reported DNE 3GM/24 HOURS Ariton 5MG/325MG (Acetaminophen/Hydrocodone Bitart) Tab 1 Tablet PO Q4 PRN 11/25/13 Reported NTE 3GM APAP/24HRS Lasix (Furosemide) 40 Mg Tab 60 Mg PO DAILY 11/25/13 Reported TAKE 1.5 OF A 40MG TABLET Vitamin D3 (Cholecalciferol) 1,000 Unit Tab 1,000 Units PO DAILY 01/21/13 Reported Current Inpatient Medications Current Inpatient Medications Medications (Trade) Dose Ordered Sig/Regla Route Start Time Stop Time Status Last Admin Dose Admin Heparin Sodium (Porcine) 5000 unit 5,000 unit Q12 SQ 08/06/16 21:00 09/05/16 20:59 08/08/16 07:48 5,000 UNIT Sodium Chloride (Nss 1000ml) 1,000 ml @ 125 mls/hr Q8H IV 08/06/16 17:48 09/05/16 17:47 08/08/16 10:27 125 MLS/HR Acetaminophen (Tylenol Tab) 650 mg Q4H PRN PO 08/06/16 18:00 09/05/16 17:59 Al Hydrox/Mg Hydrox/Simethicone (Maalox Max Susp) 15 ml Q4H PRN PO 08/06/16 18:00 09/05/16 17:59 Magnesium Hydroxide (Milk Of Magnesia Susp) 30 ml Q12H PRN PO 08/06/16 18:00 09/05/16 17:59 Ondansetron HCl (Zofran Inj) 4 mg Q6H PRN IV 08/06/16 18:00 09/05/16 17:59 Polyethylene (Miralax Powder Packet) 17 gm DAILY PRN PO 08/06/16 18:00 09/05/16 17:59 Bisacodyl (Dulcolax Tab) 5 mg BID PO 08/06/16 21:00 09/05/16 20:59 Carbamazepine (Tegretol Tab) 300 mg BID PO 08/06/16 21:00 09/05/16 20:59 08/08/16 07:43 300 MG Acetaminophen/ Hydrocodone Bitart (Ariton 5/325 Tab) 1 tab Q4H PRN PO 08/06/16 18:00 08/20/16 17:59 Lamotrigine (Lamictal Tab) 300 mg Q12 PO 08/06/16 21:00 09/05/16 20:59 08/08/16 07:43 300 MG Ranitidine HCl (zANTac TAB) 150 mg HS PO 08/06/16 21:00 09/05/16 20:59 08/07/16 19:36 150 MG Hydralazine HCl 10 mg 10 mg Q6H PRN IV. 08/06/16 18:15 09/05/16 18:14 08/07/16 01:03 10 MG Acetaminophen 100 ml @ 400 mls/hr Q8H PRN IV 08/07/16 01:30 09/06/16 01:29 08/07/16 06:15 400 MLS/HR Piperacillin Sod/ Tazobactam Sod/ Dextrose (Zosyn Iv/D5 100ml) 115 ml @ 28.75 mls/ hr Q8H IV 08/08/16 02:00 08/18/16 01:59 08/08/16 10:27 28.75 MLS/HR Piperacillin Sod/ Tazobactam Sod (Consult) 1 ea UD PRN N/A 08/07/16 19:15 09/06/16 19:14 Levetiracetam (Keppra Tab) 1,000 mg BID PO 08/08/16 11:00 09/07/16 10:59 08/08/16 11:32 1,000 MG Review of Systems Constitutional: + chills, + fatigue, + fever, + sweats Eyes: No worsening of vision ENT: No hearing loss Respiratory: No cough Cardiovascular: No chest pain Abdomen: No nausea, No pain Musculoskeletal: No joint pain Genitourinary - Female: No dysuria Integumentary: No itch, No rash Physical Exam Date Time Temp Pulse Resp B/P Pulse Ox O2 Delivery O2 Flow Rate FiO2 08/08/16 12:06 36.9 69 22 153/93 96 Room Air 08/08/16 08:22 36.6 68 18 123/63 94 Room Air 08/08/16 08:00 Room Air 08/08/16 04:10 Room Air 08/08/16 03:47 36.6 56 20 147/68 97 Room Air 08/08/16 00:01 Room Air 08/07/16 23:52 36.6 67 20 137/58 93 Room Air 08/07/16 20:10 37.6 93 20 159/99 95 Room Air 08/07/16 20:00 Room Air 08/07/16 16:40 37.3 72 20 154/50 92 Room Air 08/07/16 16:00 Room Air 08/07/16 12:47 162/84 General Appearance: no apparent distress, + obese Head: normocephalic, atraumatic Eyes: normal inspection, sclerae normal ENT: hearing grossly normal Neck: supple, trachea midline Respiratory/Chest: chest non-tender, lungs clear, normal breath sounds, no respiratory distress, no accessory muscle use Cardiovascular: regular rate, rhythm, + systolic murmur Abdomen/GI: normal bowel sounds, non tender, soft Neurologic/Psych: alert, normal mood/affect Skin: normal color, warm/dry, no rash Laboratory Results RUN DATE: 08/08/16 [facility] LAB PAGE 1 RUN TIME: 1127 Specimen Inquiry PATIENT: CHANDRIKA LUO LOC: Pedro U # : [id number] AGE/SX: 76/F ROOM: [facility] REG : 08/06/[address]: Oj Akhtar D.O : 1940 BED: 1 DIS : STATUS: ADM IN TLOC: SPEC #: [id number] YASMANI: 08/06/16-9219 STATUS: RES REQ #: [id number] RECD: 08/06/16-[address]: Juan José Leon DO SOURCE: URINE CATH ENTR: 08/06/16-[address]: Jumana Love [facility]: ORDERED: CULTURE UR CATH Procedure Result Verified Site URINE CULTURE Preliminary 08/08/16 Organism 1 PROTEUS MIRABILIS COLONY COUNT >100,000 CFU/ml SENS SENSITIVITY TO FOLLOW Organism 2 STAPH SPECIES COLONY COUNT >100,000 CFU/ml SENS SENSITIVITY TO FOLLOW 1. PROTEUS MIRABILIS Target Route Dose RX AB Cost M.I.C. IQ ------ ----- ------ -- ------ -------- - ------ TRIMET/SULFA R >2/38 AMPICILLIN S <=8 AMPICILLIN/SUL S <=8/4 CEFAZOLIN S <=8 CEFOTAXIME S <=2 CEFTRIAXONE S <=1 CEFEPIME S <=4 CEFUROXIME S 8 GENTAMICIN S <=4 TOBRAMYCIN S <=4 AMIKACIN S <=16 CIPROFLOXACIN R >2 LEVOFLOXACIN R >4 ERTAPENEM S <=1 PIP/TAZO S <=16 S = SENSITIVE I = INTERMEDIATE R = RESISTANT Item Value Date Time Blood Culture - Preliminary Resulted 08/06/16 1450 Blood Gram Negative Bacilli Blood Culture - Preliminary Resulted 08/06/16 1445 Blood Staphylococcus Aureus Urine Culture - Preliminary Resulted 08/06/16 1425 Urine,Catheterized Proteus Mirabilis Last 24 Hours Test 08/08/16 06:00 White Blood Count 6.75 K/uL Red Blood Count 2.89 M/uL Hemoglobin 8.7 g/dL Hematocrit 27.0 % Mean Corpuscular Volume 93.4 fL Mean Corpuscular Hemoglobin 30.1 pg Mean Corpuscular Hemoglobin Concent 32.2 g/dl Platelet Count 210 K/uL Mean Platelet Volume 9.4 fL Neutrophils (%) (Auto) 74.1 % Lymphocytes (%) (Auto) 14.5 % Monocytes (%) (Auto) 9.2 % Eosinophils (%) (Auto) 1.6 % Basophils (%) (Auto) 0.3 % Neutrophils # (Auto) 5.00 K/uL Lymphocytes # (Auto) 0.98 K/uL Monocytes # (Auto) 0.62 K/uL Eosinophils # (Auto) 0.11 K/uL Basophils # (Auto) 0.02 K/uL RDW Standard Deviation 52.8 fL RDW Coefficient of Variation 15.4 % Immature Granulocyte % (Auto) 0.3 % Immature Granulocyte # (Auto) 0.02 K/uL Dohle Bodies 1+ Sodium Level 142 mmol/L Potassium Level 3.5 mmol/L Chloride Level 110 mmol/L Carbon Dioxide Level 26 mmol/L Anion Gap 6.0 mmol/L Blood Urea Nitrogen 43 mg/dl Creatinine 1.80 mg/dl Est Creatinine Clear Calc Drug Dose 28.6 ml/min Estimated GFR () 31.6 Estimated GFR (Non- 27.2 BUN/Creatinine Ratio 23.6 Random Glucose 96 mg/dl Calcium Level 8.1 mg/dl Assessment & Plan Patient with right-sided pyelonephritis, UTI, and gram negative bacilli and staph aureus bacteremia. Cultures are currently pending sensitivities. She is on IV Zosyn alone. Will add IV Vancomycin pending culture results. Because of Staph aureus bacteremia, will also repeat blood cultures and order TTE. Patient very likely will require at least 2 weeks of IV abx therapy if not more. We will follow. Case reviewed and agree with above assessment.
--- NOTE | 2016-08-08 15:41 | Pharmacy Progress Note ---
Pharmacy Antibiotic Prog Note Date of Service Aug 08, 2016. Subjective The patient is currently receiving Zosyn for UTI/bacteremia. Abx broadened to include Vancomycin today The patient is currently on day # 2 of abx IV therapy. Objective Height (Feet): 5 Height (Inches): 0.00 Weight (Kilograms): 96.700 Lab Results (24hrs): Laboratory Tests Test 08/08/16 06:00 BUN/Creatinine Ratio 23.6 Blood Urea Nitrogen 43 mg/dl Creatinine 1.80 mg/dl White Blood Count 6.75 K/uL Red Blood Count 2.89 M/uL Hemoglobin 8.7 g/dL Hematocrit 27.0 % Mean Corpuscular Volume 93.4 fL Mean Corpuscular Hemoglobin 30.1 pg Mean Corpuscular Hemoglobin Concent 32.2 g/dl Platelet Count 210 K/uL Mean Platelet Volume 9.4 fL Neutrophils (%) (Auto) 74.1 % Lymphocytes (%) (Auto) 14.5 % Monocytes (%) (Auto) 9.2 % Eosinophils (%) (Auto) 1.6 % Basophils (%) (Auto) 0.3 % Neutrophils # (Auto) 5.00 K/uL Lymphocytes # (Auto) 0.98 K/uL Monocytes # (Auto) 0.62 K/uL Eosinophils # (Auto) 0.11 K/uL Basophils # (Auto) 0.02 K/uL Micro Results: Item Value Date Time Urine Culture - Preliminary Resulted 08/06/16 1425 Urine,Catheterized Proteus Mirabilis Blood Culture - Preliminary Resulted 08/06/16 1445 Blood Staphylococcus Aureus Blood Culture - Preliminary Resulted 08/06/16 1450 Blood Gram Negative Bacilli Blood Culture Received 08/08/16 1300 Blood Pending Blood Culture Received 08/08/16 1310 Blood Pending Assessment & Plan 76yo female receiving IV Zosyn for pyelonephritis, UTI, and GNB/staph aureus bacteremia. C/S pending. Vancomycin added in light of positive blood cultures. Repeat blood cultures pending. RADHA ordered. Pt baseline Scr ~ 0.9-1.2mg/dl. Scr significantly elevated on admission but improving daily. Due to JO ANN and nephrotoxic combo of vanco + zosyn will cautiously dose vancomycin based on random levels to maintain therapeutic trough levels Vancomycin: * Loading dose of Vancomycin 2,000mg IV x 1 dose. This is only a 20mg/kg loading dose d/t JO ANN * Random level 08/09/16 with AM labs * Will re-dose IV Vancomycin when random level is in goal trough range * Goal trough level estimate: between 15 - 20 mcg/mL as recommended by IDSA for complicated infections (bacteremia) Zosyn: * Change to increased dosing regimen of 4.5g IV Q8hrs (each dose given over 4hrs ) since BMI > 35 & CrCl > 20ml/min Pharmacy will continue to follow and will adjust dose/frequency as necessary. Thank you
[2016-08-08] MEDS ORDERED: VANCOMYCIN CONSULT ACTIVE PRN (15:45)
[2016-08-08 15:50] VITALS: BP 148/72; PULSE 66; TEMP 36.8; O2SAT 95
[2016-08-08] MEDS ORDERED: VANCOMYCIN INJ 2,000 MG in SODIUM CHLORIDE 0.9% 500ML 500 ML IV ONE (16:00)
[2016-08-08] MEDS ORDERED: VANCOMYCIN INJ 2,400 MG in SODIUM CHLORIDE 0.9% 500ML 500 ML IV ONE (16:00)
--- NOTE | 2016-08-08 16:20 | ECHOCARDIOGRAM REPORT ---
*NOTICE TO RECEIVING CONSTITUTION PARTY AGENCY This information is strictly Confidential and protected under [place] law. [place] law prohibits you from making any further disclosure of this information unless further disclosure is expressly permitted by the written consent of the person to whom it pertains or is authorized by law. A general authorization for the release of medical or other information is not sufficient for this purpose. Hospital accepts no responsibility if the information is made available to any other person, INCLUDING THE PATIENT. Interpretation Summary * Name: CHANDRIKA LUO Study Date: 08/08/2016 02:16 PM BP: 153/93 mmHg * Patient Location: .2E\S\E211\S\1 HR: 69 * : 1940 (M/d/yyy) Gender: Female Height: 60 in * Age: 76 yrs Ethnicity: CA Weight: 213 lb * Ordering Physician: Oj Akhtar * Referring Physician: Jumana Love * Performed By: Xi Sifuentes RDCS * * Reason For Study: Endocarditis * BSA: 1.9 m2 * -- Conclusions -- * Left ventricular systolic function is normal. * The right ventricular systolic function is normal as assessed by tricuspid annular plane systolic excursion (TAPSE) (normal >1.5 cm). * The left atrium is moderately dilated. * The right atrium is mildly dilated. * Aortic valve sclerosis mild, without significant aortic valvular stenosis. * No hemodynamically significant valvular aortic stenosis. * There is mild mitral annular calcification. * There is mild mitral regurgitation. * Compared to an echocardiogram performed four weeks ago, the trans-aortic velocities are lower (no stenosis) otherwise no change Procedure Details * A complete two-dimensional transthoracic echocardiogram was performed (2D, M-mode, Doppler and color flow Doppler). Left Ventricle * The left ventricle is grossly normal size. * There is normal left ventricular wall thickness. * Ejection Fraction = 55-60%. * Left ventricular systolic function is normal. Right Ventricle * The right ventricle is grossly normal size. * The right ventricular systolic function is normal as assessed by tricuspid annular plane systolic excursion (TAPSE) (normal >1.5 cm). Atria * The left atrium is moderately dilated. * The right atrium is mildly dilated. Mitral Valve * There is mild mitral annular calcification. * There is mild mitral regurgitation. Tricuspid Valve * The tricuspid valve is not well visualized, but is grossly normal. * No tricuspid regurgitation. Aortic Valve * Aortic valve sclerosis mild, without significant aortic valvular stenosis. * No hemodynamically significant valvular aortic stenosis. * No aortic regurgitation is present. Pericardium/Pleural * There is no pericardial effusion. MMode 2D Measurements and Calculations IVSd 1.0 cm LVIDd 5.4 cm LVIDs 3.7 cm LVPWd 1.1 cm IVS/LVPW 0.95 FS 31.7 % EDV(Teich) 139.8 ml ESV(Teich) 57.0 ml EF(Teich) 59.2 % EDV(cubed) 155.3 ml ESV(cubed) 49.4 ml EF(cubed) 68.2 % LV mass(C)d 218.7 grams LV mass(C)dI 114.1 grams/m\S\2 SV(Teich) 82.8 ml SI(Teich) 43.2 ml/m\S\2 SV(cubed) 105.9 ml SI(cubed) 55.2 ml/m\S\2 Ao root diam 2.9 cm Ao root area 6.7 cm\S\2 LA dimension 4.8 cm asc Aorta Diam 3.6 cm LA/Ao 1.6 LVOT diam 2.0 cm LVOT area 3.1 cm\S\2 LVAd ap4 27.1 cm\S\2 LVLd ap4 7.2 cm EDV(MOD-sp4) 84.7 ml EDV(sp4-el) 87.0 ml LVAs ap4 15.8 cm\S\2 LVLs ap4 6.0 cm ESV(MOD-sp4) 37.1 ml ESV(sp4-el) 35.6 ml EF(MOD-sp4) 56.2 % EF(sp4-el) 59.1 % LVAd ap2 26.1 cm\S\2 LVLd ap2 7.2 cm EDV(MOD-sp2) 82.3 ml EDV(sp2-el) 80.5 ml LVAs ap2 16.7 cm\S\2 LVLs ap2 6.7 cm ESV(MOD-sp2) 36.9 ml ESV(sp2-el) 34.9 ml EF(MOD-sp2) 55.1 % EF(sp2-el) 56.6 % LVLd %diff 0.24 % EDV(MOD-bp) 83.5 ml LVLs %diff 11.6 % ESV(MOD-bp) 39.4 ml EF(MOD-bp) 52.8 % SV(MOD-sp4) 47.6 ml SI(MOD-sp4) 24.8 ml/m\S\2 SV(MOD-sp2) 45.4 ml SI(MOD-sp2) 23.7 ml/m\S\2 SV(MOD-bp) 44.1 ml SI(MOD-bp) 23.0 ml/m\S\2 SV(sp4-el) 51.4 ml SI(sp4-el) 26.8 ml/m\S\2 SV(sp2-el) 45.6 ml SI(sp2-el) 23.8 ml/m\S\2 Doppler Measurements and Calculations MV E max maria 117.0 cm/sec MV A max maria 54.5 cm/sec MV E/A 2.1 MV dec time 0.17 sec Ao V2 max 198.0 cm/sec Ao max PG 15.7 mmHg Ao max PG (full) 12.7 mmHg Ao V2 mean 134.8 cm/sec Ao mean PG 8.2 mmHg Ao V2 VTI 37.4 cm JOSEFA(V,A) 1.4 cm\S\2 JOSEFA(V,D) 1.4 cm\S\2 LV V1 max PG 3.0 mmHg LV V1 max 86.3 cm/sec SV(Ao) 251.5 ml SI(Ao) 131.2 ml/m\S\2 PA V2 max 94.2 cm/sec PA max PG 3.5 mmHg PA acc slope 743.2 cm/sec\S\2 PA acc time 0.10 sec PI max maria 198.9 cm/sec PI max PG 15.8 mmHg PI dec slope 187.9 cm/sec\S\2 PI P1/2t 310.0 msec PA pr(Accel) 35.3 mmHg
[2016-08-08] MEDS ORDERED: FUROSEMIDE 20 MG TAB PO ONE (16:30)
--- NOTE | 2016-08-08 18:10 | DIAGNOSTIC IMAGING REPORT ---
CHEST ONE VIEW PORTABLE CLINICAL HISTORY: Sepsis. COMPARISON STUDY: Chest radiograph August 06, 2016. FINDINGS: The patient is rotated. Lung volumes are diminished. This is unchanged. Linear left lung opacity favors atelectasis. There is no lobar consolidation. Cardiomegaly is unchanged. There is no evidence of pulmonary edema. IMPRESSION: 1. Rotated study. 2. Mild left lower lung opacities. Atelectasis is favored over pneumonia. Electronically signed by: Romeo Atkinson M.D. 08/08/2016 6:08 PM Dictated Date/Time: 08/08/2016 6:07 PM
[2016-08-08] MEDS: PIPERACILL/TAZOBAC IV 4.5 GM in DEXTROSE 5% 100ML IV SCH (18:34)
[2016-08-08 20:05] VITALS: BP 126/88; PULSE 66; TEMP 36.5; O2SAT 95
[2016-08-08] MEDS ORDERED: VANCOMYCIN INJ 1,900 MG in SODIUM CHLORIDE 0.9% 250ML 250 ML IV SCH (21:00)
[2016-08-08] MEDS: RANITIDINE HCL 150 MG TAB PO SCH (21:09)
[2016-08-09 00:32] VITALS: BP 156/91; PULSE 66; TEMP 37; O2SAT 96
[2016-08-09] MEDS: PIPERACILL/TAZOBAC IV 4.5 GM in DEXTROSE 5% 100ML IV SCH ×3 (02:09→18:09)
[2016-08-09 04:01] VITALS: BP 163/77; PULSE 67; TEMP 36.7; O2SAT 94
[2016-08-09 07:07] LABS: HEMATOCRIT 25.2 % (37-47); MEAN CORPUSCULAR HEMOGLOBIN 29.9 pg (25-34); MEAN CORPUSCULAR HGB CONC 32.5 g/dl (32-36); MEAN PLATELET VOLUME 9.4 fL (7.4-10.4); PLATELET COUNT 192 K/uL (130-400); RED BLOOD COUNT 2.74 M/uL (4.2-5.4); WHITE BLOOD COUNT 6.94 K/uL (4.8-10.8)
[2016-08-09 07:26] LABS: COMPLETE YES; EOSINOPHIL % 3.5 %; LYMPH ABS # 0.96 K/uL (1.2-3.4); LYMPHOCYTE % 13.9 %; NEUTROPHILS % 78.3 %
[2016-08-09] MEDS: BISACODYL 5 MG TABEC PO SCH ×2 (07:41→21:00)
[2016-08-09] MEDS: FUROSEMIDE 40 MG TAB PO SCH (07:41)
[2016-08-09] MEDS: CARBAMAZEPINE 200 MG TAB PO SCH ×2 (07:41→21:17)
[2016-08-09] MEDS: LEVETIRACETAM 500 MG TAB PO SCH ×2 (07:41→21:17)
[2016-08-09 07:43] LABS: BUN/CREATININE RATIO 21.8 (10-20); CALCIUM 8.2 mg/dl (8.5-10.1); CREATININE 1.4 mg/dl (0.60-1.20); POTASSIUM 3.5 mmol/L (3.5-5.1)
[2016-08-09 07:45] LABS: C-REACTIVE PROTEIN 15.8 mg/dl (0-0.29)
[2016-08-09] MEDS: HEPARIN SOD 5000 UNIT/0.5 ML CARP SQ SCH ×2 (07:46→21:00)
[2016-08-09 07:56] VITALS: BP 170/64; PULSE 62; TEMP 36.9; O2SAT 96
--- NOTE | 2016-08-09 09:35 | Pharmacy Progress Note ---
Pharmacy Antibiotic Prog Note Date of Service Aug 09, 2016. Subjective The patient is currently receiving vancomycin and zosyn for UTI/bacteremia The patient is currently on day #2 of IV therapy. Objective Height (Feet): 5 Height (Inches): 0.00 Weight (Kilograms): 96.600 Lab Results (24hrs): Laboratory Tests Test 08/09/16 06:38 BUN/Creatinine Ratio 21.8 Blood Urea Nitrogen 31 mg/dl Creatinine 1.40 mg/dl White Blood Count 6.94 K/uL Red Blood Count 2.74 M/uL Hemoglobin 8.2 g/dL Hematocrit 25.2 % Mean Corpuscular Volume 92.0 fL Mean Corpuscular Hemoglobin 29.9 pg Mean Corpuscular Hemoglobin Concent 32.5 g/dl Platelet Count 192 K/uL Mean Platelet Volume 9.4 fL Micro Results: Item Value Date Time C.difficile Toxin B Gene (PCR) Received 08/09/16 0830 Stool Pending Blood Culture Received 08/08/16 1310 Blood Pending Blood Culture Received 08/08/16 1300 Blood Pending Blood Culture - Final Complete 08/06/16 1450 Blood Proteus Mirabilis Blood Culture - Final Complete 08/06/16 1445 Blood Staphylococcus Aureus Urine Culture - Preliminary Resulted 08/06/16 1425 Urine,Catheterized Proteus Mirabilis Assessment & Plan Patient receiving vancomycin and zosyn for UTI/bacteremia. Repeat BC are pending. ID is following. Vancomycin: * Random level this am was therapeutic at ~16 mcg/ml (goal 15-20 for bacteremia/ UTI) * Scr improving more today, now at 1.40 mg/dL (baseline closer to 0.9-1.2 mg/dL ) anticipate Scr to continue to improve further * Will start maintenance dose of vancomycin 1250 mg (~13 mg/kg ) iv q 24 hrs to achieve an estimated trough ~15-20 mcg/ml * Estimated kinetics: t1/2~23 hrs, ke~0.03 hr-1, CrCl ~37 ml/min * Will monitor closely for drug accumulation since patient with elevated BMI ( BMI>35 kg/m2) Zosyn: * 4.5 gm iv q 8 hrs (appropriate for CrCl>20 and BMI>35 kg/m2); no changes necessary Pharmacy will continue to follow and will adjust dose/frequency as necessary. Thank you
[2016-08-09] MEDS: VANCOMYCIN INJ 1,250 MG in SODIUM CHLORIDE 0.9% 250ML 250 ML IV SCH (10:56)
[2016-08-09 12:10] VITALS: BP 170/64; PULSE 63; TEMP 37.1; O2SAT 93
--- NOTE | 2016-08-09 14:30 | Family Medicine Progress Note ---
Progress Note Date of Service Aug 09, 2016. Subjective Pt seen and examined at bedside. No acute events overnight. Patient reports mild aching pain of the feet at this time and some abdominal bloating. Reports no fever, chills, CP/SOB, palpitations, n/v/d/c, abd pain, rashes. Constitutional: No chills, No fatigue, No fever, No sweats Respiratory: No cough, No dyspnea at rest, No shortness of breath Cardiovascular: No chest pain, No edema, No palpitations Abdomen: No constipation, No diarrhea, No nausea, No pain, No vomiting Medications Current Inpatient Medications Medications (Trade) Dose Ordered Sig/Regla Route Start Time Stop Time Status Last Admin Dose Admin Heparin Sodium (Porcine) 5000 unit 5,000 unit Q12 SQ 08/06/16 21:00 09/05/16 20:59 08/09/16 07:46 5,000 UNIT Sodium Chloride (Nss 1000ml) 1,000 ml @ 75 mls/hr [id number] IV 08/06/16 17:48 09/05/16 17:47 08/08/16 10:27 125 MLS/HR Acetaminophen (Tylenol Tab) 650 mg Q4H PRN PO 08/06/16 18:00 09/05/16 17:59 Al Hydrox/Mg Hydrox/Simethicone (Maalox Max Susp) 15 ml Q4H PRN PO 08/06/16 18:00 09/05/16 17:59 Magnesium Hydroxide (Milk Of Magnesia Susp) 30 ml Q12H PRN PO 08/06/16 18:00 09/05/16 17:59 Ondansetron HCl (Zofran Inj) 4 mg Q6H PRN IV 08/06/16 18:00 09/05/16 17:59 Polyethylene (Miralax Powder Packet) 17 gm DAILY PRN PO 08/06/16 18:00 09/05/16 17:59 Bisacodyl (Dulcolax Tab) 5 mg BID PO 08/06/16 21:00 09/05/16 20:59 Carbamazepine (Tegretol Tab) 300 mg BID PO 08/06/16 21:00 09/05/16 20:59 08/09/16 07:41 300 MG Acetaminophen/ Hydrocodone Bitart ([place]worth 5/325 Tab) 1 tab Q4H PRN PO 08/06/16 18:00 08/20/16 17:59 Lamotrigine (Lamictal Tab) 300 mg Q12 PO 08/06/16 21:00 09/05/16 20:59 08/09/16 07:41 300 MG Ranitidine HCl (zANTac TAB) 150 mg HS PO 08/06/16 21:00 09/05/16 20:59 08/08/16 21:09 150 MG Hydralazine HCl 10 mg 10 mg Q6H PRN IV. 08/06/16 18:15 09/05/16 18:14 08/07/16 01:03 10 MG Acetaminophen (Ofirmev Iv) 100 ml @ 400 mls/hr Q8H PRN IV 08/07/16 01:30 09/06/16 01:29 08/07/16 06:15 400 MLS/HR Piperacillin Sod/ Tazobactam Sod (Consult) 1 ea UD PRN N/A 08/07/16 19:15 09/06/16 19:14 Levetiracetam (Keppra Tab) 1,000 mg BID PO 08/08/16 11:00 09/07/16 10:59 08/09/16 07:41 1,000 MG Vancomycin HCl 1 ea 1 ea UD PRN N/A 08/08/16 15:45 09/07/16 15:44 Piperacillin Sod/ Tazobactam Sod/ Dextrose (Zosyn Iv/D5 100ml) 120 ml @ 30 mls/hr Q8H IV 08/08/16 18:00 08/22/16 17:59 08/09/16 10:58 30 MLS/HR Furosemide 40 mg 40 mg QAM PO 08/09/16 09:00 09/08/16 08:59 08/09/16 07:41 40 MG Vancomycin HCl/ Sodium Chloride (Vancomycin Inj/ Nss 250ml) 275 ml @ 125 mls/hr Q24H IV 08/09/16 10:00 08/23/16 09:59 08/09/16 10:56 125 MLS/HR Objective Vital Signs Date Time Temp Pulse Resp B/P Pulse Ox O2 Delivery O2 Flow Rate FiO2 08/09/16 12:10 37.1 63 22 170/64 93 Room Air 08/09/16 12:00 Room Air 08/09/16 08:00 Room Air 08/09/16 07:56 36.9 62 24 170/64 96 Room Air 08/09/16 04:01 36.7 67 22 163/77 94 Room Air 08/09/16 04:00 Room Air 08/09/16 00:32 37.0 66 22 156/91 96 Room Air 08/08/16 23:59 Room Air 08/08/16 20:05 36.5 66 18 126/88 95 08/08/16 20:00 Room Air 08/08/16 16:56 Room Air 08/08/16 15:50 36.8 66 18 148/72 95 Physical Exam General Appearance: WD/WN, no apparent distress Respiratory/Chest: chest non-tender, lungs clear, normal breath sounds, no respiratory distress Cardiovascular: regular rate, rhythm, no gallop, + systolic murmur (3/6 JOVANY), + pertinent finding Abdomen: normal bowel sounds, non tender, soft, no organomegaly Laboratory Results 08/09/16 06:38 Red Blood Count 2.74, Mean Corpuscular Volume 92.0, Mean Corpuscular Hemoglobin 29.9, Mean Corpuscular Hemoglobin Concent 32.5, Mean Platelet Volume 9.4 08/09/16 06:38 Test 08/09/16 06:38 White Blood Count 6.94 K/uL (4.8-10.8) Red Blood Count 2.74 M/uL (4.2-5.4) Hemoglobin 8.2 g/dL (12.0-16.0) Hematocrit 25.2 % (37-47) Mean Corpuscular Volume 92.0 fL (80-100) Mean Corpuscular Hemoglobin 29.9 pg (25-34) Mean Corpuscular Hemoglobin Concent 32.5 g/dl (32-36) Platelet Count 192 K/uL (130-400) Mean Platelet Volume 9.4 fL (7.4-10.4) RDW Standard Deviation 51.7 fL (36.4-46.3) RDW Coefficient of Variation 15.3 % (11.5-14.5) Neutrophils % (Manual) 78.3 % Lymphocytes % (Manual) 13.9 % Monocytes % (Manual) 4.3 % Eosinophils % (Manual) 3.5 % Neutrophils # (Manual) 5.43 K/uL (1.4-6.5) Total Absolute Neutrophils 5.43 K/uL (1.4-6.5) Lymphocytes # (Manual) 0.96 K/uL (1.2-3.4) Total Absolute Lymphocytes 0.96 K/uL (1.2-3.4) Monocytes # (Manual) 0.30 K/uL (0.11-0.59) Eosinophils # (Manual) 0.24 K/uL (0-0.5) Erythrocyte Sedimentation Rate 71 mm/hr (0-21) Anion Gap 9.0 mmol/L (3-11) Est Creatinine Clear Calc Drug Dose 36.7 ml/min Estimated GFR () 42.8 Estimated GFR (Non- 36.9 BUN/Creatinine Ratio 21.8 (10-20) Calcium Level 8.2 mg/dl (8.5-10.1) C-Reactive Protein 15.80 mg/dl (0-0.29) Random Vancomycin Level 16.4 mcg/ml Date/Time Source Procedure Growth Status 08/09/16 08:30 Stool C.difficile Toxin B Gene (PCR) - Final No C. difficile toxin B gene detected Complete Assessment and Plan 76 y/o female h/o sz d/o, depression/anxiety, HTN p/w sepsis 2/2 pyelo Pyelonephritis - +ve UCx and BCx, CT abd/pelv complete - continue vancomycin and zosyn for now - Infectious disease on board and aware - will need at least 2 wks of IV abx JO ANN - baseline creatinine 0.8-1.1 - trend BMP daily - avoid nephrotoxic medications Chronic volume overload - restarted lasix @ 40mg /day today, trend I/O Seizure disorder - continue carbamazepine, lamictal, keppra RCC - CT shows 6.3 cm mass on lower pole of right kidney increased in size, will need OP f/u HTN - Losartan held - hydralazine PRN DVT PPX - heparin DNR
[2016-08-09 15:35] VITALS: BP 150/74; PULSE 56; TEMP 36.8; O2SAT 98
[2016-08-09] MEDS: SODIUM CHLORIDE 0.9% 1000ML 1,000 ML IV SCH ×2 (18:09→22:00)
[2016-08-09 20:53] VITALS: BP 178/76; PULSE 63; TEMP 36.6; O2SAT 95
[2016-08-09] MEDS: RANITIDINE HCL 150 MG TAB PO SCH (21:16)
[2016-08-10] VITALS (7 sets, daily range): BP systolic 131–184; BP diastolic 56–119; PULSE 57–65; TEMP 36.6–37.1; O2SAT 96–98
[2016-08-10] MEDS: PIPERACILL/TAZOBAC IV 4.5 GM in DEXTROSE 5% 100ML IV SCH ×3 (01:57→18:22)
[2016-08-10 06:21] LABS: CREATININE 1.2 mg/dl (0.60-1.20)
[2016-08-10 07:58] LABS: BUN/CREATININE RATIO 19.3 (10-20); CREATININE 1.3 mg/dl (0.60-1.20); POTASSIUM 3.3 mmol/L (3.5-5.1)
[2016-08-10 08:09] LABS: CALCIUM 8.4 mg/dl (8.5-10.1)
[2016-08-10] MEDS: LOSARTAN POTASSIUM 25 MG TAB PO SCH (08:37)
[2016-08-10] MEDS: CARBAMAZEPINE 200 MG TAB PO SCH ×2 (08:38→20:47)
[2016-08-10] MEDS: FUROSEMIDE 40 MG TAB PO SCH (08:38)
[2016-08-10] MEDS: LEVETIRACETAM 500 MG TAB PO SCH ×2 (08:38→20:46)
[2016-08-10] MEDS: HEPARIN SOD 5000 UNIT/0.5 ML CARP SQ SCH ×2 (08:49→20:50)
[2016-08-10] MEDS: BISACODYL 5 MG TABEC PO SCH ×2 (09:00→20:49)
[2016-08-10] MEDS: SODIUM CHLORIDE 0.9% 1000ML 1,000 ML IV SCH (10:07)
[2016-08-10] MEDS: VANCOMYCIN INJ 1,250 MG in SODIUM CHLORIDE 0.9% 250ML 250 ML IV SCH (10:07)
--- NOTE | 2016-08-10 10:12 | Family Medicine Progress Note ---
Progress Note Date of Service Aug 10, 2016. History Pt seen and examined at bedside. No acute events overnight. Pt reports no abdominal pain. Defecating and urinating without complaint. Reports no fever, CP /SOB, palpitations, n/v/d/c, reflux. Constitutional: denies: chills, fever, weakness Respiratory: negative: cough, short of breath, wheezing Cardiovascular: denies chest pain, denies edema, denies palpitations, denies syncope Gastrointestinal/Abdominal: negative: abdominal pain, constipation, diarrhea, nausea Genitourinary: negative discharge, negative dysuria, negative frequency Skin: negative: change in color, lesions, rash General Appearance: WD/WN, no apparent distress Respiratory: chest non-tender, lungs clear, normal breath sounds, no respiratory distress Cardiovascular: normal peripheral pulses, regular rate, rhythm, no edema, systolic murmur (3/6 JOVANY) Gastrointestinal: normal bowel sounds, non tender, soft, no organomegaly Assessment/Plan 76 y/o female h/o sz d/o, depression/anxiety, HTN p/w sepsis 2/2 pyelo Pyelonephritis - +ve UCx and BCx, CT abd/pelv complete - continue vancomycin and zosyn for now - PICC line as course will be extended - Infectious disease on board and aware, awaiting recommendations of final course in AM HTN - restart losartan - hydralazine PRN JO ANN - baseline creatinine 0.8-1.1 - trend BMP daily - avoid nephrotoxic medications Chronic volume overload - continue lasix at present dose Seizure disorder - continue carbamazepine, lamictal, keppra RCC - CT shows 6.3 cm mass on lower pole of right kidney increased in size, will need OP f/u DVT PPX - heparin DNR
[2016-08-10] MEDS: HydrALAZINE HCL 20 MG/ML VIAL IV. PRN (13:13)
[2016-08-10] MEDS: RANITIDINE HCL 150 MG TAB PO SCH (20:48)
[2016-08-11] VITALS: O2SAT 96
[2016-08-11] MEDS: SODIUM CHLORIDE 0.9% 1000ML 1,000 ML IV SCH (00:02)
[2016-08-11] MEDS: PIPERACILL/TAZOBAC IV 4.5 GM in DEXTROSE 5% 100ML IV SCH ×2 (02:05→10:19)
[2016-08-11 06:06] LABS: BASO % 0.5 %; BASO ABS # 0.03 K/uL (0-0.2); EOS % 4.4 %; HEMATOCRIT 24.5 % (37-47); IG% 0.7 %; LYMPH % 20.5 %; LYMPH ABS # 1.16 K/uL (1.2-3.4); MEAN CELL VOLUME 91.8 fL (80-100); MEAN CORPUSCULAR HGB CONC 32.7 g/dl (32-36); MEAN PLATELET VOLUME 9.6 fL (7.4-10.4); MONO % 12.4 %; NEUT % 61.5 %; PLATELET COUNT 191 K/uL (130-400); RED BLOOD COUNT 2.67 M/uL (4.2-5.4); WHITE BLOOD COUNT 5.65 K/uL (4.8-10.8)
[2016-08-11 06:40] LABS: COMPLETE YES
[2016-08-11 06:43] LABS: BUN/CREATININE RATIO 15.9 (10-20); CALCIUM 8.2 mg/dl (8.5-10.1); CREATININE 1.2 mg/dl (0.60-1.20); POTASSIUM 3.1 mmol/L (3.5-5.1)
[2016-08-11] MEDS: LEVETIRACETAM 500 MG TAB PO SCH (07:36)
[2016-08-11] MEDS: HEPARIN SOD 5000 UNIT/0.5 ML CARP SQ SCH (07:36)
[2016-08-11] MEDS: CARBAMAZEPINE 200 MG TAB PO SCH (07:38)
[2016-08-11] MEDS: FUROSEMIDE 40 MG TAB PO SCH (07:39)
[2016-08-11] MEDS: LOSARTAN POTASSIUM 25 MG TAB PO SCH (07:40)
[2016-08-11] MEDS: BISACODYL 5 MG TABEC PO SCH (07:40)
[2016-08-11 09:33] VITALS: BP 196/81; PULSE 61; TEMP 36.7; O2SAT 95
[2016-08-11] MEDS ORDERED: POTASSIUM CHLORIDE 20 MEQ TABCR PO SCH ×2 (09:45→20:00)
[2016-08-11] MEDS: VANCOMYCIN INJ 1,250 MG in SODIUM CHLORIDE 0.9% 250ML 250 ML IV SCH (10:18)
[2016-08-11 10:53] LABS: TOTAL IRON BINDING CAPACITY 221 mcg/dl (250-450)
[2016-08-11 11:37] VITALS: BP 167/79
[2016-08-11 12:26] VITALS: BP 167/79; PULSE 61; TEMP 36.7; O2SAT 95
[2016-08-11] MEDS ORDERED: NURSING VERBAL MED ORDER ONE (13:00)
[2016-08-11] MEDS ORDERED: vancomycin IV (13:25)
[2016-08-11] MEDS ORDERED: CEFD300C2 PO (13:25)
[2016-08-11] MEDS ORDERED: HYDR-5688 PO (13:25)
--- NOTE | 2016-08-11 13:29 | Discharge Instructions ---
Discharge Instructions Date of Service August 11, 2016. Admission Reason for Admission: Sepsis Discharge Discharge Diagnosis / Problem: proteus and MRSA uti, renal mass Discharge Goals Goal(s): Diagnostic testing, Therapeutic intervention Activity Recommendations Activity Level: Assistance Required Therapies: Physical Therapy, Occupational Therapy . Additional Information Patient informed of condition: Yes Advance Directives: Yes DNR: Yes Level of Care: Skilled Communicable Disease: Yes Prognosis: Stable Morton Catheter: No Instructions / Follow-Up Instructions / Follow-Up 76 F with sepsis from pyelonephritis, complicated by renal mass, h/o sz d/o, depression/anxiety Pyelonephritis vancomycin and zosyn, changed to vancomycin and Cefdinir for 14 day total as outpt ID to manage vanco per Sue Malave - PICC line may be removed at completion of treatment -CT shows 6.3 cm mass on lower pole of right kidney increased in size, will need OP f/u HTN losartan- JO ANN - hydration and improved, restarted lasix Seizure disorder - continue carbamazepine, lamictal, keppra DVT PPX -was heparin Current Hospital Diet Patient's current hospital diet: AHA Diet (Heart Healthy) Discharge Diet Recommended Diet: Regular Diet Pending Studies Studies pending at discharge: no Medical Emergencies . Who to Call and When: Medical Emergencies: If at any time you feel your situation is an emergency, please call 911 immediately. . Non-Emergent Contact Non-Emergency issues call your: Primary Care Provider Call Non-Emergent contact if: temperature is above 101, your pain is unusual for you . . "Provider Documentation" section prepared by Julio César Peña. . Core Measure Problem Core Measures: None [place] Drug Monitoring Program Drug Monitoring Findings: password issue at search will need to reset
--- NOTE | 2016-08-11 13:32 | Discharge Summary ---
Discharge Summary Date of Service August 11, 2016. Discharge Summary Admission Date: Aug 06, 2016 at 18:04 Discharge Date: August 11, 2016 [facility]charge Disposition[facility] Principal Diagnosis: pyelonephritis with proteus and mrsa, renal mass Immunizations: Have You Had Influenza Vaccine: Unknown History of Tetanus Vaccine?: Unknown History of Pneumococcal: Unknown History of Hepatitis B Vaccine: Unknown Procedures: CT Abd/Pelvis: IMPRESSION: 1. Increase in size in the 6.3 cm mass within the lower pole of the right kidney. This is highly suspicious for renal cell carcinoma. 2. Interval development of right perinephric fat stranding/edema with urothelial thickening and mild right hydronephrosis. There are no renal or ureteral stones. Therefore, this could represent a recently passed stone versus pyelonephritis. 3. No definite bowel wall thickening or obstruction. Consultations: INfectious disease Medication Reconciliation New Medications: Cefdinir (Omnicef) 300 Mg Cap 300 MG PO Q12H for 10 Days, #20 CAP [vancomycin] () 1250 MG IV DAILY for 10 Days Continued Medications: Acetaminophen (Tylenol) 325 Mg Tab 650 MG PO Q6H PRN for Pain or Fever, TAB DNE 3GM/24 HOURS Artificial Tear Solution (Artificial Tears) 1 Dafne Dafne 1 DROP OPB QID, #30 ML 5 Refills Bisacodyl (Dulcolax) 5 Mg Tab 5 MG PO BID, TAB Carbamazepine (Carbamazepine) 200 Mg Tab 300 MG PO BID TAKE 1.5 X 200 MG TABLET= 300 MG TWICE A DAY. Cholecalciferol (Vitamin D3) 1,000 Unit Tab 1000 UNITS PO DAILY Furosemide (Lasix) 40 Mg Tab 60 MG PO DAILY, TAB TAKE 1.5 OF A 40MG TABLET Hydrocodone/Acetaminophen 5MG/325MG (Sidney 5MG/325MG) Tab 1 TABLET PO Q4 PRN for MOD PAIN, #30 TAB (This prescription has been renewed) NTE 3GM APAP/24HRS Lamotrigine (Lamictal) 150 Mg Tab 300 MG PO Q12, TAB Levetiracetam (Levetiracetam) 1,000 Mg Tab 1000 MG PO BID Losartan Potassium (Cozaar) 25 Mg Tab 25 MG PO DAILY, TAB Magnesium Hydroxide (Milk of Magnesia) 30 Ml Susp 30 ML PO DAILY PRN for NO BM FOR 3 DAYS Potassium Chloride Microencaps (Potassium Chloride Er) 20 Meq Tab 20 MEQ PO DAILY for 90 Days, #90 TAB 3 Refills Prune Juice (Prune Juice ) Liqd OZ PO PRN UD OR STEWED PRUNES IF NO BM 2 DAYS Ranitidine HCl (Ranitidine HCl) 150 Mg Tab 150 MG PO HS Sodium Phosphate/Biphosphate (Fleet Enema) Mable 1 EA MI UD, BTL GIVE FLEET ENEMA PER RECTUM DAY 4 IF NO BOWEL MOVEMENT Discontinued Medications: Ceftriaxone Sod (Rocephin) 1 Gm Inj 1 GM IM DAILY, VIAL Discharge Exam Review of Systems: Constitutional: + fatigue, + weakness, No chills, No fever Respiratory: No cough, No sputum Cardiovascular: No chest pain, No orthopnea Abdomen: No nausea, No pain, No vomiting Musculoskeletal: No joint pain, No muscle pain Psychiatric: + depression symptoms, No anhedonism Physical Exam: General Appearance: WD/WN, + obese Eyes: PERRL, EOMI Neck: supple, no JVD Respiratory/Chest: chest non-tender, lungs clear Cardiovascular: regular rate, rhythm, + systolic murmur Abdomen / GI: normal bowel sounds, soft Neurologic/Psychiatric: alert, oriented x 3 Hospital Course 76 F with sepsis from pyelonephritis, complicated by renal mass, h/o sz d/o, depression/anxiety Pyelonephritis vancomycin and zosyn, changed to vancomycin and Cefdinir for 14 day total as outpt ID to manage vanco per Sue Malave - PICC line may be removed at completion of treatment -CT shows 6.3 cm mass on lower pole of right kidney increased in size, will need OP f/u HTN losartan- JO ANN - hydration and improved, restarted lasix Seizure disorder - continue carbamazepine, lamictal, keppra DVT PPX -was heparin Total Time Spent: Greater than 30 minutes This includes examination of the patient, discharge planning, medication reconciliation, and communication with other providers. Discharge Instructions Please refer to the electronic Patient Visit Report (Discharge Instructions) for additional information.
--- NOTE | 2016-08-12 09:01 | EDITING REQUIRED CODING QUERY ---
SEPSIS To promote full compliance with coding requirements relating to patient care, physician participation is requested in all cases of trucking manager uncertainty. Please assist us with the question(s) below: Both Sepsis and Bacteremia are documented within the record. The terms cannot be used interchangeably can you please clarify final diagnosis In responding to this query, please exercise your independent professional judgement. The fact that a question is asked does not imply that any particular answer is desired or expected. We appreciate your clarification on this issue. ()Bacteremia (Nonspecific laboratory finding of bacteria in the blood) Specify Organism () Present on Admission () Not present on admission () Unable to clinically determine xx() Sepsis Specify Organism staph aureus and proteus Specify Associated Condition/Diagnosis () Present on Admission () Not present on admission () Unable to clinically determine () Other, patient has:
[2016-08-12] MEDS ORDERED: VANCOMYCIN TROUGH SCH (11:30)
== END 2016-08-11 14:24 | DRG 872 ==
LOC: ENRESERVDT → ENRESERVTM → C.EDB 13:05 → UNDOADMIN 18:04 → C.2E 18:04 → C.MS4W 08-10 17:40
PROVIDERS: ADMIT Family Medicine; ATTEND Family Medicine
DX: A41.01 Sepsis due to Methicillin susceptible Staphylococcus aureus (principal); N12 Tubulo-interstitial nephritis, not specified as acute or chronic; C64.2 Malignant neoplasm of left kidney, except renal pelvis; N17.9 Acute kidney failure, unspecified; N39.0 Urinary tract infection, site not specified; S82.899K Other fracture of unspecified lower leg, subsequent encounter for closed fracture with nonunion; B96.4 Proteus (mirabilis) (morganii) as the cause of diseases classified elsewhere; I10 Essential (primary) hypertension; G40.909 Epilepsy, unspecified, not intractable, without status epilepticus; F32.9 Major depressive disorder, single episode, unspecified; F41.9 Anxiety disorder, unspecified; R41.82 Altered mental status, unspecified; R60.9 Edema, unspecified; Z66 Do not resuscitate; X58.XXXA Exposure to other specified factors, initial encounter

== ENCOUNTER → 2016-09-03 | Outpatient (CLI) | payer OTHER ==
[~2016-09-03] MED LIST changes: +ARTISOL12 OPB; -ASPI325T45 PO; -IPRASOL4 INH; -LVQ500 PO; +POTA20TA13 PO; +SODIENE PR; +vancomycin IV
[2016-09-03 12:48] LABS: BLOOD UREA NITROGEN 72 mg/dl (7-18); BUN/CREATININE RATIO 32.9 (10-20); CARBON DIOXIDE 23 mmol/L (21-32); CHLORIDE 104 mmol/L (98-107); GLUCOSE 88 mg/dl (70-99); POTASSIUM 4.1 mmol/L (3.5-5.1); SODIUM 137 mmol/L (136-145)
[2016-09-03 12:56] LABS: CALCIUM 8.9 mg/dl (8.5-10.1)
--- NOTE | 2016-09-18 07:46 | CODING QUERY NO DIAGNOSIS ---
TREATMENT RENDERED WITHOUT A DIAGNOSIS To promote full compliance with coding requirements relating to patient care, physician participation is requested in all cases of street light inspector uncertainty. Please assist us with providing a diagnosis/symptom for the test(s) below: A diagnosis/symptom was not documented on your Order. A valid diagnosis/symptom is required to bill all insurances. Please remember that we are unable to code a diagnosis of rule out, probable, possible, questionable, or suspected. Tests that require a diagnosis: * PARTIAL RENAL PROFILE DIAGNOSIS: Provider Signature: Date: Thank you Cathleen Abdul Ciklum Information Management Once completed, please kindly fax back to [phone] For questions please call [phone]
== END ==
LOC: EDSTATUS 12:39 → C.LABCC 12:40 → EDSTATUS 12:51
PROVIDERS: ATTEND Internal Medicine
DX: Z01.89 Encounter for other specified special examinations (principal)

== ENCOUNTER → 2016-09-11 | Outpatient (CLI) | payer OTHER ==
[2016-09-11 10:37] LABS: CALCIUM 8.8 mg/dl (8.5-10.1)
[2016-09-11 11:10] LABS: BLOOD UREA NITROGEN 133 mg/dl (7-18); BUN/CREATININE RATIO 26.5 (10-20); CARBON DIOXIDE 20 mmol/L (21-32); CHLORIDE 107 mmol/L (98-107); GLUCOSE 92 mg/dl (70-99); POTASSIUM 5.4 mmol/L (3.5-5.1); SODIUM 143 mmol/L (136-145)
== END ==
LOC: C.LABCC 08:17 → EDSTATUS 10-16 10:47
PROVIDERS: ATTEND Internal Medicine
DX: N18.9 Chronic kidney disease, unspecified (principal)